=== PATIENT | male | born 1940 | race Caucasian/White ===

== ENCOUNTER → 2018-12-18 | Outpatient (CLI) | payer MEDICARE ==
--- NOTE | 2018-12-18 15:04 | Diagnostic Imaging Report ---
Exam: KUB - 3 views Clinical History: Renal calculus. Comparison: None. Findings: Nonobstructive bowel gas pattern. There is a 6 mm calcification projecting over the right lower kidney and a 3 mm calcification projecting over the right mid kidney. No calcifications projecting over the left kidney or the expected course of the ureters. Calcified phleboliths in the pelvis. No acute bony abnormality. Degenerative changes of the lower lumbar spine. Dextroconvex curvature of the lumbar spine. Status post cholecystectomy. Impression: Calcifications measuring 3 mm and 6 mm overlying the right kidney may represent stones. Signed by: Dr. Cral Guerrero MD on 12/18/2018 3:01 PM
== END ==
LOC: RAD 14:13
PROVIDERS: ATTEND Urology
DX: N20.0 Calculus of kidney (principal)
CPT/HCPCS: 74018

== ENCOUNTER → 2019-02-06 | Day surgery (SDC) | payer MEDICARE ==
[2019-02-03 15:11] LABS: BASOPHILS # (AUTO) 0.1 (0.0-0.1); BASOPHILS % 0.6 % (0.0-1.0); EOSINOPHILS # (AUTO) 0.3 (0.0-0.4); EOSINOPHILS % 3.9 % (0.0-6.0); HEMATOCRIT 42.9 % (38.2-49.6); HEMOGLOBIN 14.2 g/dL (14.0-18.0); LYMPHOCYTES # (AUTO) 2.4 (1.0-3.2); MEAN CORPUSCULAR HEMOGLOBIN 30.4 pg (28-32); MEAN CORPUSCULAR HGB CONC 33.1 g/dL (31-35); MEAN CORPUSCULAR VOLUME 91.9 fL (81-99); MONOCYTES # (AUTO) 0.7 (0.2-0.8); NEUTROPHILS # (AUTO) 4.8 (2.1-6.9); NEUTROPHILS % 58.1 % (38.7-80.0); PLATELET COUNT 215 x10e3/uL (140-360); RED BLOOD COUNT 4.67 x10e6/uL (4.3-5.7); RED CELL DISTRIBUTION WIDTH 13.2 % (11.7-14.4)
[2019-02-03 15:29] LABS: ANION GAP 12.9 mmol/L (8-16); BLOOD UREA NITROGEN 26 mg/dL (7-26); BUN/CREATININE RATIO 28 (6-25); CALCIUM 10.3 mg/dL (8.4-10.2); CARBON DIOXIDE 28 mmol/L (22-29); CHLORIDE 99 mmol/L (98-107); CREATININE, SERUM 0.92 mg/dL (0.72-1.25); EST GLOMERULAR FILTRATION RATE > 60 ML/MIN (60-); GLUCOSE 220 mg/dL (74-118); POTASSIUM 3.9 mmol/L (3.5-5.1); SODIUM 136 mmol/L (136-145)
--- NOTE | 2019-02-03 15:32 | Diagnostic Imaging Report ---
EXAMINATION: CHEST 2 VIEWS INDICATION: Pre-op. COMPARISON: None FINDINGS: TUBES and LINES: None. LUNGS: Lungs are well inflated. There is no evidence of pneumonia or pulmonary edema. Small nodular opacity overlying the right lower lung likely represents nipple shadow. PLEURA: No pleural effusion or pneumothorax. HEART AND MEDIASTINUM: The cardiomediastinal silhouette is mildly enlarged. Tortuous thoracic aorta. BONES AND SOFT TISSUES: No acute osseous abnormality. Status post median sternotomy. UPPER ABDOMEN: No free air under the diaphragm. IMPRESSION: No acute radiographic abnormality. Signed by: Dr. Carl Guerrero MD on 02/03/2019 3:29 PM
--- NOTE | 2019-02-05 13:07 | Diagnostic Imaging Report ---
Abdomen, 2 views. History: Renal stones. Comparison: KUB dated 12/18/2018 Findings: Small stones overlie the lower pole of the right kidney. Stones previously noted overlying the mid portion of the right kidney not definitely visualized on this study. The intestinal gas pattern is nonobstructive. There no masses. Clips from prior cholecystectomy. Extensive degenerative changes of the spine. IMPRESSION: Right lower pole renal stones. Signed by: Dr. Fred Whittaker DO on 02/05/2019 1:04 PM
[~2019-02-06] MED LIST: ACETAMINOPHEN/CODEINE 300MG - 30MG TAB ONE; AMLODIPINE BESY10 MG PO; CRESTOR10 MG PO; DEXAMETHASONE SOD PHOS INJ 4 MG/ML VIAL ONE; FENOFIBRATE145 MG PO; GLIMEPIRIDE2 MG PO; HYDRALAZINE HCL25 MG PO; LEVOFLOXACIN 500MG/D5W 100ML 100 ML IV ONE; LIDOCAINE HCL 2% LOCAL INJ 5 ML SDV VIAL INJ ONE; METFORMIN HCL500 MG PO; MULTI-VITAMIN1 EACH PO; ONDANSETRON HCL INJ 2MG/ML 2ML 2 MG/ML VIAL ONE; PROPOFOL IV EMULSION 10 MG/ML 20 ML VIAL ONE; SEVOFLURANE INHAL SOLN 250 ML PEN BTL ONE; TYLENOL WITH C1 EAC1 PO; [UNRECOGNIZED DRUG - OTHER] PO; [UNRECOGNIZED DRUG - OTHER] PO
--- OUTSIDE RECORDS SUMMARY | 2019-02-06 05:08 | XMS REPORT | Clinical Summary ---
Author Author [employer] [facility] Address Unknown Phone Unavailable Care Team Providers Care Mulcher Operator Name Role Phone Asked, No Pcp PCP Unavailable Allergies Comments Active Allergy Reactions Severity Noted Date Cefaclor Rash Low 08/07/2016 Medications End Date Status Medication Sig Dispensed Refills Start Date Active lansoprazole (PREVACID) Take 15 mg by 0 15 MG capsule mouth daily. Active fenofibrate micronized Take 130 mg 0 (ANTARA) 130 MG capsule by mouth 2 (two) times a day. Active metFORMIN (GLUCOPHAGE) Take 500 mg 0 1,000 mg tablet by mouth 2 (two) times a day with meals. Active aspirin (ECOTRIN) 81 MG Take 81 mg by 0 enteric coated tablet mouth daily. Active multivitamin capsule Take 1 0 capsule by mouth daily. Active colchicine 0.6 mg tablet Take 0.6 mg 0 by mouth daily. PRN Active rosuvastatin (CRESTOR) 10 Take 10 mg by 0 MG tablet mouth every evening. Active glimepiride (AMARYL) 2 MG Take 2 mg by 0 tablet mouth 2 (two) times a day. Active lisinopril Take 20 mg by 0 (PRINIVIL,ZESTRIL) 20 mg mouth 2 (two) tablet times a day. Active amLODIPine (NORVASC) 2.5 Take 2.5 mg 0 mg tablet by mouth daily. Active sitaGLIPtin (JANUVIA) 50 Take 50 mg by 0 MG tablet mouth daily. Active OMEGA-3 FATTY ACIDS/FISH Take 300 mg 0 OIL (OMEGA 3 FISH OIL by mouth ORAL) daily. Active meloxicam (MOBIC) 15 mg Take 15 mg by 0 tablet mouth every evening. Active melatonin 5 mg capsule Take by mouth 0 every evening. Active gabapentin (NEURONTIN) Take 300 mg 0 300 mg capsule by mouth nightly. Active HYDROcodone-acetaminophen Take 1 tablet 0 (NORCO) 5-325 mg per by mouth 2 tablet (two) times a day as needed for moderate pain. Active Problems Problem Noted Date Coronary artery disease involving [place] heart without angina pectoris 08/07/2016 Family History Medical History Relation Name Comments Heart disease Father Heart disease Mother Relation Name Status Comments Father Mother Social History Date Tobacco Use Types Packs/Day Years Used Never Smoker Tobacco Cessation: Counseling Given: No Alcohol Use Drinks/Week oz/Week Comments Yes 3-4 beers/week, mixed drinks 2xweek Sex Assigned at Date Recorded Not on file Industry Job Start Date Occupation Not on file Not on file Not on file Travel End Travel History Travel Start No recent travel history available. Last Filed Vital Signs Not on file Plan of Treatment Health Maintenance Due Date Last Done Comments SHINGLES VACCINES (#1) 1991 65+ PNEUMOCOCCAL VACCINE 2006 (1 of 2 - PCV13) INFLUENZA VACCINE 03/26/2019 Implants Device Identifier Shelf Expiration Date Model / Serial / Lot Implanted Type Area Manufactur er 04/18/2018 [id number] / / [id number] Stent Cor Resolute Integrity Coronary N/A: N/A [employer] Ztrlims-Eltng Otw 2.5x14mm - Stents [facility] - [id number] VASCULAR Implanted: 11/21/2016 (Quantity not on file) 04/25/2018 [id number] / / [id number] Stent Cor Resolute Integrity Coronary N/A: N/A [employer] Ztrlims-Eltng Otw 3x15mm - Stents [facility] - [id number] VASCULAR Implanted: 11/21/2016 (Quantity not on file) 05/17/2018 [id number] / / [id number] Stent Cor Resolute Integrity Coronary N/A: N/A [employer] Ztrlims-Eltng Otw 3x12mm - Stents [facility] - [id number] VASCULAR Implanted: 11/21/2016 (Quantity not on file) 04/02/2021 [id number] / / [id number] Kit Shunt Crtd Artery Rdopq Line Surgical Right: Neck COVIDIEN 6in Strl [place] - [id number] Implants; JOURDAN Implanted: Qty: 1 on 08/08/2016 by [employer]; [facility] Raffaele Holman MD Extenders; Surgical Wires 01/01/2021 [id number] / / [id number] Patch Vasclr Perph 0.8x8cm Vascular Right: Neck CANTRELL Vascu-Guard - [id number] Graft [employer]OS[employer] Implanted: Qty: 1 on 08/08/2016 by Raffaele Holman MD Results Not on fileafter 02/05/2018 Insurance Type Payer Benefit Subscriber ID Effective Phone Address Plan / Dates Group Medicare MEDICARE MEDICARE xxxxxxxxxx 2006-P [place], PART A AND resent [place] B Commercial AARP AARP xxxxxxxxxxx 2010-P SUPPLEMENT resent Advance Directives Patient has advance care planning documents on file. For more information, kian mckenzie contact: Leno Dominguez [address] [place] [address]
--- OUTSIDE RECORDS SUMMARY | 2019-02-06 05:10 | XMS REPORT | Summary of Care ---
Author Author [facility] Organization [facility] Address Unknown Phone Unavailable Encounter DB Kirkpatrick(SILVINO) [id number] Date(s): 12/23/17 - 12/24/17 [facility] [address] [place] [phone] Discharge Disposition: Home or Self Care Attending Physician: Joe Montes MD Admitting Physician: Joe Montes MD Referring Physician: Joe Montes MD Vital Signs 1 2 3 Most recent to oldest [Reference Range]: 172.72 cm (12/23/17 6:42 AM) Height 98.6 DegF (12/24/17 7:22 AM) 98.3 DegF (12/24/17 3:50 AM) 97.7 DegF (12/23/17 10:36 PM) Temperature Oral [96.4-99.1 DegF] 142/84 mmHg *HI* (12/24/17 7:22 AM) 118/62 mmHg (12/24/17 3:50 AM) 138/68 mmHg (12/23/17 10:36 PM) Blood Pressure [90-140/60-90 mmHg] 18 BRMIN (12/24/17 7:22 AM) 16 BRMIN (12/24/17 3:50 AM) 18 BRMIN (12/23/17 10:36 PM) Respiratory Rate [14-20 BRMIN] 62 bpm (12/24/17 7:22 AM) 45 bpm *LOW* (12/24/17 3:50 AM) 54 bpm *LOW* (12/23/17 10:36 PM) Peripheral Pulse Rate [60-100 bpm] 92.273 kg (12/23/17 6:42 AM) Weight 30.93 m2 (12/23/17 6:42 AM) Body Mass Index Problem List Condition Effective Dates Status Health Status Informant BPH (benign Active prostatic hyperplasia)(Confirm ed) Constipation(Confirm Active ed) CAD (coronary artery Active disease)(Confirmed) DM (diabetes Active mellitus)(Confirmed) GERD Active (gastroesophageal reflux disease)(Confirmed) High Active cholesterol(Confirme d) HTN Active (hypertension)(Confi rmed) OA Active (osteoarthritis)(Con firmed) DM (diabetes Active mellitus), type 2(Confirmed) Allergies, Adverse Reactions, Alerts Substance Reaction Severity Status Ceclor itching Active Allergy Unverified1 itching Active 1[facility] Medications acetaminophen 1,000 mg, 2 tab, Route: PO, Drug form: TAB, Q6Hnow, Dosing Weight 92.273, kg, St art date: 12/23/17 21:00:00 CDT, Duration: 30 day, Stop date: 01/22/18 15:00:00 CDT Notes: Max acetaminophen 4000 mg/day (4 gm/day). (Same as: Tylenol Extra Stre) Start Date: 12/23/17 Stop Date: 12/24/17 Status: Discontinued acetaminophen 1,000 mg, 2 tab, Route: PO, Drug form: TAB, TID, Dosing Weight 92.273, kg, Start date: 12/23/17 15:00:00 CDT, Duration: 30 day, Stop date: 01/22/18 9:00:00 CDT Notes: Max acetaminophen 4000 mg/day (4 gm/day). (Same as: Tylenol Extra Streng ) Start Date: 12/23/17 Stop Date: 12/23/17 Status: Discontinued acetaminophen 1,000 mg, 2 tab, Route: PO, Drug form: TAB, ONCE, Dosing Weight 92.273, kg, Star t date: 12/23/17 6:47:00 CDT, Stop date: 12/23/17 6:47:00 CDT Notes: Max acetaminophen 4000 mg/day (4 gm/day). (Same as: Tylenol Extra Streng ) Start Date: 12/23/17 Stop Date: 12/23/17 Status: Completed Advil 600 mg, PO, Q6H, 0 Refill(s) Start Date: 12/11/17 Stop Date: 12/24/17 Status: Discontinued Al hydroxide/Mg hydroxide/simethicone 200 mg-200 mg-20 mg/5 mL oral suspension 15 mL, Route: PO, Drug Form: SUSP, Dosing Weight 92.273, kg, Q4H, PRN Indigestio n, Start date: 12/23/17 16:12:00 CDT, Duration: 30 day, Stop date: 01/22/18 16:1 1:00 CDT Notes: (aluminum hydroxide-magnesium hyd- simethicone [id number]/5ml 30 ml ud REJI) Start Date: 12/23/17 Stop Date: 12/24/17 Status: Discontinued amLODIPine 5 mg, PO, Daily, 0 Refill(s) Start Date: 12/11/17 Status: Ordered ANES flumazenil 0.2 mg, 2 mL, Route: IVP, Drug form: INJ, PRN, Dosing Weight 92.273, kg, PRN [place] zodiazepine Reversal, Initial dose, Start date: 12/23/17 9:05:00 CDT, Duration: 8 hr, Stop date: 12/23/17 17:04:00 CDT Notes: (Same as: Romazicon) Start Date: 12/23/17 Stop Date: 12/23/17 Status: Discontinued ANES HYDROmorphone 0.5 mg, 0.25 mL, Route: IVP, Drug form: INJ, Q5Min, Dosing Weight 92.273, kg, NE N Pain Score 7-10, Start date: 12/23/17 9:05:00 CDT, Duration: 4 doses or times, Stop date: 12/23/17 17:04:00 CDT Notes: Same as Dilaudid Start Date: 12/23/17 Stop Date: 12/23/17 Status: Discontinued ANES labetalol 10 mg, 2 mL, Route: IVP, Drug form: INJ, Q5Min, Dosing Weight 92.273, kg, PRN El evated BP, Start date: 12/23/17 9:05:00 CDT, Duration: 5 doses or times, Stop da te: 12/23/17 17:04:00 CDT Start Date: 12/23/17 Stop Date: 12/23/17 Status: Discontinued ANES morphine Sulfate 2 mg, 0.2 mL, Route: IVP, Drug form: INJ, Q5Min, Dosing Weight 92.273, kg, PRN P ain Score 4-6, Start date: 12/23/17 9:05:00 CDT, Duration: 5 doses or times, Sto p date: 12/23/17 17:04:00 CDT Notes: (Same as:MORPhine Sulfate) Start Date: 12/23/17 Stop Date: 12/23/17 Status: Discontinued ANES naloxone 0.4 mg, 1 mL, Route: IVP, Drug form: INJ, Q2MIN, Dosing Weight 92.273, kg, PRN N arcotic Reversal, Start date: 12/23/17 9:05:00 CDT, Duration: 8 doses or times, Stop date: 12/23/17 17:04:00 CDT Notes: Same as Narcan Start Date: 12/23/17 Stop Date: 12/23/17 Status: Discontinued ANES ondansetron 4 mg, 2 mL, Route: IVP, Drug form: INJ, ONCE, Dosing Weight 92.273, kg, PRN Naus ea & Vomiting, Start date: 12/23/17 9:05:00 CDT Notes: (Same as: Usha) MEDICATION WASTE Product Size: 4 mgProduct Was marlene: ___ mg Start Date: 12/23/17 Stop Date: 12/23/17 Status: Discontinued ANES oxyCODONE 10 mg, 2 tab, Route: PO, Drug form: TAB, Q4H, Dosing Weight 92.273, kg, PRN Pain Score 7-10, Start date: 12/23/17 9:05:00 CDT, Duration: 8 hr, Stop date: 17:04:00 CDT Notes: (Same as: Roxicodone) Start Date: 12/23/17 Stop Date: 12/23/17 Status: Discontinued ANES oxyCODONE 5 mg, 1 tab, Route: PO, Drug form: TAB, Q4H, Dosing Weight 92.273, kg, PRN Pain Score 4-6, Start date: 12/23/17 9:05:00 CDT, Duration: 8 hr, Stop date: 12/23/17 17:04:00 CDT Notes: (Same as: Roxicodone) Start Date: 12/23/17 Stop Date: 12/23/17 Status: Discontinued aspirin 325 mg tablet, enteric coated 325 mg=1 tab, PO, BID, # 60 tab, 0 Refill(s) Start Date: 12/24/17 Stop Date: 01/23/18 Status: Ordered aspirin 325 mg tablet, enteric coated 325 mg, 1 tab, Route: PO, Drug form: ECTAB, BID, Dosing Weight 92.273, kg, Begin 8 am POD #1, Start date: 12/23/17 17:00:00 CDT, Duration: 30 day, Stop date: 9:00:00 CDT Notes: (Do Not Crush) Do not crush or chew. Start Date: 12/23/17 Stop Date: 12/24/17 Status: Discontinued aspirin 81 mg tablet, enteric coated 81 mg=1 tab, PO, Daily, # 90 tab, 3 Refill(s) Start Date: 12/11/17 Stop Date: 12/24/17 Status: Discontinued bisacodyl 10 mg, 1 supp, Route: NE, Drug form: SUPP, Daily, Dosing Weight 92.273, kg, PRN Constipation, Start date: 12/23/17 16:12:00 CDT, Duration: 30 day, Stop date: 16:11:00 CDT Notes: (Same As: Dulcolax, Bisco-Lax) Start Date: 12/23/17 Stop Date: 12/24/17 Status: Discontinued celecoxib 200 mg, Route: PO, [id number], Dosing Weight 92.273, kg, Start date: 12/23/17 17:00 :00 CDT, Duration: 30 day, Stop date: 01/22/18 5:00:00 CDT Start Date: 12/23/17 Stop Date: 12/23/17 Status: Deleted celecoxib 400 mg, Route: PO, ONCE, Dosing Weight 92.273, kg, Start date: 12/23/17 16:12:00 CDT, Stop date: 12/23/17 16:12:00 CDT Start Date: 12/23/17 Stop Date: 12/23/17 Status: Deleted celecoxib 200 mg, 1 cap, Route: PO, Drug form: CAP, [id number], Dosing Weight 92.273, kg, Sta rt date: 12/23/17 21:00:00 CDT, Duration: 30 day, Stop date: 01/22/18 9:00:00 CD T Notes: NSAID. Please check indication. Not for seizure. (Same As: CeleBREX) Start Date: 12/23/17 Stop Date: 12/24/17 Status: Discontinued dexamethasone (ANES) Route: IV, Drug form: INJ, ONCE, Stop date: 12/23/17 10:22:00 CDT Start Date: 12/23/17 Stop Date: 12/23/17 Status: Completed Dextrose 50% Syringe 12.5 gm, 25 mL, Route: IVP, Drug Form: INJ, Dosing Weight 92.273, kg, PRN, PRN B lood Glucose Results, Start date: 12/23/17 10:18:00 CDT, Duration: 30 day, Stop date: 01/22/18 10:17:00 CDT Start Date: 12/23/17 Stop Date: 12/24/17 Status: Discontinued Dextrose 50% Syringe 25 gm, 50 mL, Route: IVP, Drug Form: INJ, Dosing Weight 92.273, kg, PRN, PRN Blo od Glucose Results, Start date: 12/23/17 10:18:00 CDT, Duration: 30 day, Stop da te: 01/22/18 10:17:00 CDT Start Date: 12/23/17 Stop Date: 12/24/17 Status: Discontinued diphenhydrAMINE 12.5 mg, 5 mL, Route: PO, Drug form: LIQ, Q6H, Dosing Weight 92.273, kg, PRN Itc ashwini, Start date: 12/23/17 16:12:00 CDT, Duration: 30 day, Stop date: 01/22/18 1 6:11:00 CDT Notes: (Same as: Benadryl) Start Date: 12/23/17 Stop Date: 12/24/17 Status: Discontinued diphenhydrAMINE 25 mg, 1 cap, Route: PO, Drug form: CAP, Bedtime, Dosing Weight 92.273, kg, PRN Insomnia, Start date: 12/23/17 16:12:00 CDT, Duration: 30 day, Stop date: 16:11:00 CDT Notes: (Same as: Benadryl) Start Date: 12/23/17 Stop Date: 12/24/17 Status: Discontinued docusate 100 mg, 1 cap, Route: PO, Drug form: CAP, BID, Dosing Weight 92.273, kg, Start d ate: 12/23/17 17:00:00 CDT, Duration: 30 day, Stop date: 01/22/18 9:00:00 CDT Notes: (Same as: Colace) (Do Not Crush) Start Date: 12/23/17 Stop Date: 12/24/17 Status: Discontinued docusate-senna 50 mg-8.6 mg oral tablet 1 tab, Route: PO, Drug Form: TAB, Dosing Weight 92.273, kg, Daily, Start date: 0 12/24/17 9:00:00 CDT, Duration: 30 day, Stop date: 01/22/18 9:00:00 CDT Notes: (Same as Senokot-S) Equiv. to Madelyn-Colace. Start Date: 12/24/17 Stop Date: 12/24/17 Status: Discontinued ergocalciferol 50,000 intl units oral capsule 50,000 IntlUnit, 1 cap, Route: PO, Drug form: CAP, Q7D, Dosing Weight 92.273, kg , Start date: 12/23/17 17:00:00 CDT, Duration: 30 day, Stop date: 01/20/18 9:00: 00 CDT Notes: (Same as: Vitamin D) "Do Not Crush" Start Date: 12/23/17 Stop Date: 12/24/17 Status: Discontinued famotidine 20 mg, 1 tab, Route: PO, Drug form: TAB, ONCE, Dosing Weight 92.273, kg, Pre-ope rative., Start date: 12/23/17 6:47:00 CDT, Stop date: 12/23/17 6:47:00 CDT Notes: (Same as: Pepcid) Start Date: 12/23/17 Stop Date: 12/23/17 Status: Completed famotidine 20 mg, 1 tab, Route: PO, Drug form: TAB, QPM, Start date: 12/23/17 17:00:00 CDT, Duration: 30 day, Stop date: 01/21/18 17:00:00 CDT Notes: (Same as: Pepcid) Start Date: 12/23/17 Stop Date: 12/24/17 Status: Discontinued fenofibrate 145 mg, 1 tab, Route: PO, Drug form: TAB, Daily, Start date: 12/24/17 9:00:00 CD T, Duration: 30 day, Stop date: 01/22/18 9:00:00 CDT Notes: (Same as: Tricor) Start Date: 12/24/17 Stop Date: 12/24/17 Status: Discontinued Fenofibrate 130 mg capsule Fenofibrate 130 mg capsule, 130 mg, 1 cap, Drug form: MISC, Route: PO, Daily, 9:00:00 CDT, Duration: 30 day, Stop date: 01/22/18 9:00:00 CDT Start Date: 12/24/17 Stop Date: 12/23/17 Status: Discontinued fenofibrate 130 mg oral capsule 130 mg, 1 cap, Route: PO, Drug form: CAP, Daily, Dosing Weight 92.273, kg, Start date: 12/24/17 9:00:00 CDT, Duration: 30 day, Stop date: 01/22/18 9:00:00 CDT Start Date: 12/24/17 Stop Date: 12/23/17 Status: Deleted fenofibrate 130 mg oral capsule 130 mg=1 cap, PO, Daily, # 30 cap, 0 Refill(s) Start Date: 12/11/17 Status: Ordered gabapentin 300 mg oral capsule 600 mg, 2 cap, Route: PO, Drug form: CAP, QAM, Dosing Weight 92.273, kg, Start d ate: 12/24/17 9:00:00 CDT, Duration: 30 day, Stop date: 01/22/18 9:00:00 CDT Notes: (Same as: Neurontin) Start Date: 12/24/17 Stop Date: 12/23/17 Status: Discontinued gabapentin 300 mg oral capsule 900 mg, 3 cap, Route: PO, Drug form: CAP, QPM, Dosing Weight 92.273, kg, Start d ate: 12/23/17 17:00:00 CDT, Duration: 30 day, Stop date: 01/21/18 17:00:00 CDT Notes: (Same as: Neurontin) Start Date: 12/23/17 Stop Date: 12/23/17 Status: Discontinued gabapentin 300 mg oral capsule 900 mg, 3 cap, Route: PO, Drug form: CAP, QPM, Dosing Weight 92.358, kg, (CrCl > 60 ml/min), Start date: 12/23/17 21:00:00 CDT, Duration: 30 day, Stop date: 21:00:00 CDT Notes: (Same as: Neurontin) Start Date: 12/23/17 Stop Date: 12/23/17 Status: Discontinued gabapentin 300 mg oral capsule 900 mg=3 cap, PO, QPM, # 90 cap, 1 Refill(s) Start Date: 12/11/17 Status: Ordered gabapentin 300 mg oral capsule 600 mg=2 cap, PO, QAM, # 90 cap, 1 Refill(s) Start Date: 12/11/17 Status: Ordered gabapentin 600 mg oral tablet 600 mg, 2 cap, Route: PO, Drug form: CAP, QAM, Dosing Weight 92.358, kg, Start d ate: 12/24/17 9:00:00 CDT, Duration: 30 day, Stop date: 01/22/18 9:00:00 CDT Notes: (Same as: Neurontin) Start Date: 12/24/17 Stop Date: 12/23/17 Status: Discontinued glimepiride 2 mg oral tablet 2 mg=1 tab, PO, Breakfast, # 30 tab, 0 Refill(s) Start Date: 12/11/17 Status: Ordered glucagon 1 mg, Route: IM, Drug form: PDR/INJ, PRN, Dosing Weight 92.273, kg, PRN Blood Gl ucose Results, Start date: 12/23/17 10:18:00 CDT, Duration: 30 day, Stop date: 0 01/22/18 10:17:00 CDT Start Date: 12/23/17 Stop Date: 12/24/17 Status: Discontinued Home Medication PO, Daily, Refill(s) 0 Start Date: 12/11/17 Stop Date: 12/24/17 Status: Discontinued HYDROcodone 10 mg oral capsule, extended release 5 mg=0.5 cap, PO, Q12H, 5mg, 0 Refill(s) Start Date: 12/11/17 Status: Ordered hydromorphone 0.3 mg, 0.15 mL, Route: IVP, Drug form: INJ, Q4H, Dosing Weight 92.273, kg, PRN Pain Score 7-10, Start date: 12/23/17 16:12:00 CDT, Duration: 30 day, Stop date: 01/22/18 16:11:00 CDT Notes: Same as Dilaudid Start Date: 12/23/17 Stop Date: 12/23/17 Status: Discontinued insulin lispro 2 unit, 0.02 mL, Route: SUB-Q, Drug form: SOLN, TID-Before Meals, Dosing Weight 92.273, kg, PRN Blood Glucose Results, Start date: 12/23/17 11:16:00 CDT, Durati on: 30 day, Stop date: 01/22/18 11:15:00 CDT Notes: (Same as: Humalog ) Roll in palms of hands gently; Do not shake `vigorou sly. "Single Patient Use Only " WASTE: F/P - Black; E - [facility] [employer] [address] able for 28 days at room temperature.Expires in days from Da te Start Date: 12/23/17 Stop Date: 12/24/17 Status: Discontinued insulin lispro 8 unit, 0.08 mL, Route: SUB-Q, Drug form: SOLN, TID-Before Meals, Dosing Weight 92.273, kg, PRN Blood Glucose Results, Start date: 12/23/17 11:16:00 CDT, Durati on: 30 day, Stop date: 01/22/18 11:15:00 CDT Notes: (Same as: Humalog ) Roll in palms of hands gently; Do not shake `vigorou sly. "Single Patient Use Only " WASTE: F/P - Black; E - [facility] [address] able for 28 days at room temperature.Expires in days from Da te Start Date: 12/23/17 Stop Date: 12/24/17 Status: Discontinued insulin lispro 6 unit, 0.06 mL, Route: SUB-Q, Drug form: SOLN, TID-Before Meals, Dosing Weight 92.273, kg, PRN Blood Glucose Results, Start date: 12/23/17 11:16:00 CDT, Durati on: 30 day, Stop date: 01/22/18 11:15:00 CDT Notes: (Same as: Humalog ) Roll in palms of hands gently; Do not shake `vigorou sly. "Single Patient Use Only " WASTE: F/P - Black; E - [facility] [address] able for 28 days at room temperature.Expires in days from Da te Start Date: 12/23/17 Stop Date: 12/24/17 Status: Discontinued insulin lispro 4 unit, 0.04 mL, Route: SUB-Q, Drug form: SOLN, TID-Before Meals, Dosing Weight 92.273, kg, PRN Blood Glucose Results, Start date: 12/23/17 11:16:00 CDT, Durati on: 30 day, Stop date: 01/22/18 11:15:00 CDT Notes: (Same as: Humalog ) Roll in palms of hands gently; Do not shake `vigorou sly. "Single Patient Use Only " WASTE: F/P - Black; E - [facility] [address] able for 28 days at room temperature.Expires in days from Da te Start Date: 12/23/17 Stop Date: 12/24/17 Status: Discontinued insulin lispro 10 unit, 0.1 mL, Route: SUB-Q, Drug form: SOLN, TID-Before Meals, Dosing Weight 92.273, kg, PRN Blood Glucose Results, Start date: 12/23/17 11:16:00 CDT, Durati on: 30 day, Stop date: 01/22/18 11:15:00 CDT Notes: (Same as: Humalog ) Roll in palms of hands gently; Do not shake `vigorou sly. "Single Patient Use Only " WASTE: F/P - Black; E - [facility] [address] able for 28 days at room temperature.Expires in days from Da te Start Date: 12/23/17 Stop Date: 12/24/17 Status: Discontinued insulin lispro 2 unit, 0.02 mL, Route: SUB-Q, Drug form: SOLN, Bedtime, Dosing Weight 92.273, k g, PRN Blood Glucose Results, Start date: 12/23/17 10:18:00 CDT, Duration: 30 da y, Stop date: 01/22/18 10:17:00 CDT Notes: (Same as: Humalog ) Roll in palms of hands gently; Do not shake `vigorou sly. "Single Patient Use Only " WASTE: F/P - Black; E - [facility] [address] able for 28 days at room temperature.Expires in days from Da te Start Date: 12/23/17 Stop Date: 12/24/17 Status: Discontinued insulin lispro 1 unit, 0.01 mL, Route: SUB-Q, Drug form: SOLN, Bedtime, Dosing Weight 92.273, k g, PRN Blood Glucose Results, Start date: 12/23/17 10:18:00 CDT, Duration: 30 da y, Stop date: 01/22/18 10:17:00 CDT Notes: (Same as: Humalog ) Roll in palms of hands gently; Do not shake `vigorou sly. "Single Patient Use Only " WASTE: F/P - Black; E - [facility] [address] able for 28 days at room temperature.Expires in days from Da te Start Date: 12/23/17 Stop Date: 12/24/17 Status: Discontinued insulin lispro 4 unit, 0.04 mL, Route: SUB-Q, Drug form: SOLN, Bedtime, Dosing Weight 92.273, k g, PRN Blood Glucose Results, Start date: 12/23/17 10:18:00 CDT, Duration: 30 da y, Stop date: 01/22/18 10:17:00 CDT Notes: (Same as: Humalog ) Roll in palms of hands gently; Do not shake `vigorou sly. "Single Patient Use Only " WASTE: F/P - Black; E - [facility] [address] able for 28 days at room temperature.Expires in days from Da te Start Date: 12/23/17 Stop Date: 12/24/17 Status: Discontinued insulin lispro 3 unit, 0.03 mL, Route: SUB-Q, Drug form: SOLN, Bedtime, Dosing Weight 92.273, k g, PRN Blood Glucose Results, Start date: 12/23/17 10:18:00 CDT, Duration: 30 da y, Stop date: 01/22/18 10:17:00 CDT Notes: (Same as: Humalog ) Roll in palms of hands gently; Do not shake `vigorou sly. "Single Patient Use Only " WASTE: F/P - Black; E - [facility] [address] able for 28 days at room temperature.Expires in days from Da te Start Date: 12/23/17 Stop Date: 12/24/17 Status: Discontinued insulin lispro 4 unit, 0.04 mL, Route: SUB-Q, Drug form: SOLN, TID-Before Meals, Dosing Weight 92.273, kg, PRN Blood Glucose Results, Start date: 12/23/17 10:18:00 CDT, Durati on: 30 day, Stop date: 01/22/18 10:17:00 CDT Notes: (Same as: Humalog ) Roll in palms of hands gently; Do not shake `vigorou sly. "Single Patient Use Only " WASTE: F/P - Black; E - [facility] [address] able for 28 days at room temperature.Expires in days from Da te Start Date: 12/23/17 Stop Date: 12/23/17 Status: Discontinued insulin lispro 5 unit, 0.05 mL, Route: SUB-Q, Drug form: SOLN, TID-Before Meals, Dosing Weight 92.273, kg, PRN Blood Glucose Results, Start date: 12/23/17 10:18:00 CDT, Durati on: 30 day, Stop date: 01/22/18 10:17:00 CDT Notes: (Same as: Humalog ) Roll in palms of hands gently; Do not shake `vigorou sly. "Single Patient Use Only " WASTE: F/P - Black; E - [facility] [address] able for 28 days at room temperature.Expires in days from Da te Start Date: 12/23/17 Stop Date: 12/23/17 Status: Discontinued insulin lispro 2 unit, 0.02 mL, Route: SUB-Q, Drug form: SOLN, TID-Before Meals, Dosing Weight 92.273, kg, PRN Blood Glucose Results, Start date: 12/23/17 10:18:00 CDT, Durati on: 30 day, Stop date: 01/22/18 10:17:00 CDT Notes: (Same as: Humalog ) Roll in palms of hands gently; Do not shake `vigorou sly. "Single Patient Use Only " WASTE: F/P - Black; E - [facility] [address] able for 28 days at room temperature.Expires in days from Da te Start Date: 12/23/17 Stop Date: 12/23/17 Status: Discontinued insulin lispro 3 unit, 0.03 mL, Route: SUB-Q, Drug form: SOLN, TID-Before Meals, Dosing Weight 92.273, kg, PRN Blood Glucose Results, Start date: 12/23/17 10:18:00 CDT, Durati on: 30 day, Stop date: 01/22/18 10:17:00 CDT Notes: (Same as: Humalog ) Roll in palms of hands gently; Do not shake `vigorou sly. "Single Patient Use Only " WASTE: F/P - Black; E - [facility] [address] able for 28 days at room temperature.Expires in days from Da te Start Date: 12/23/17 Stop Date: 12/23/17 Status: Discontinued insulin lispro 1 unit, 0.01 mL, Route: SUB-Q, Drug form: SOLN, TID-Before Meals, Dosing Weight 92.273, kg, PRN Blood Glucose Results, Start date: 12/23/17 10:18:00 CDT, Durati on: 30 day, Stop date: 01/22/18 10:17:00 CDT Notes: (Same as: Humalog ) Roll in palms of hands gently; Do not shake `vigorou sly. "Single Patient Use Only " WASTE: F/P - Black; E - [facility] [address] able for 28 days at room temperature.Expires in days from Da te Start Date: 12/23/17 Stop Date: 12/23/17 Status: Discontinued Lactated Ringers (Bolus) IV 1,000 mL, 1,000 ml/hr, Infuse Over: 1 hr, Route: IV, 1,000, Drug form: INJ, ONCE , Priority: STAT, Dosing Weight 92.358 kg, Start date: 12/23/17 6:47:00 CDT, Sto p date: 12/23/17 6:47:00 CDT Start Date: 12/23/17 Stop Date: 12/23/17 Status: Completed Lactated Ringers Injection IV (ANES) 1000 mL Route: IV, Total Volume: 1,000, Start date: 12/23/17 6:47:00 CDT, Stop date: 7:47:00 CDT Start Date: 12/23/17 Stop Date: 12/23/17 Status: Completed Lactated Ringers IV 1,000 mL 1,000 mL, Rate: 75 ml/hr, Infuse over: 13.3 hr, Route: IV, Dosing Weight 92.273 kg, Total Volume: 1,000, Start date: 12/23/17 11:16:00 CDT, Duration: 30 day, St op date: 01/22/18 11:15:00 CDT, 2.13, m2 Start Date: 12/23/17 Stop Date: 12/24/17 Status: Discontinued Lactated Ringers IV 1,000 mL 1,000 mL, Rate: 100 ml/hr, Infuse over: 10 hr, Route: IV, Dosing Weight 92.273 k g, Total Volume: 1,000, Start date: 12/23/17 6:47:00 CDT, Duration: 30 day, Stop date: 01/22/18 6:46:00 CDT, 2.13, m2 Start Date: 12/23/17 Stop Date: 12/23/17 Status: Discontinued Levaquin 750 mg, 150 mL, Route: IVPB, Drug form: SOLTorie ONCALL, Dosing Weight 92.358, kg, SCIP pre-op dose, Start date: 12/23/17 7:00:00 CDT, Duration: 1 doses or times, Stop date: 12/23/17 12:00:00 CDT, ABX Indication: Surgical Prophylaxis Notes: (Same as:Levaquin) Start Date: 12/23/17 Stop Date: 12/24/17 Status: Discontinued levofloxacin (ANES) 5 mg Route: IV, Drug form: INJ, Start date: 12/23/17 9:25:00 CDT, Stop date: 12/23/17 10:25:00 CDT Start Date: 12/23/17 Stop Date: 12/23/17 Status: Completed lidocaine (ANES) Route: IV, Drug form: INJ, ONCE, Stop date: 12/23/17 10:17:00 CDT Start Date: 12/23/17 Stop Date: 12/23/17 Status: Completed melatonin 3 mg, 1 tab, Route: PO, Drug form: TAB, Bedtime, Dosing Weight 92.273, kg, PRN I nsomnia, Start date: 12/23/17 16:12:00 CDT, Duration: 30 day, Stop date: 8 16:11:00 CDT Notes: (Same as: Melatonin) Start Date: 12/23/17 Stop Date: 12/24/17 Status: Discontinued melatonin 3 mg, 1 tab, Route: PO, Drug form: TAB, Bedtime, Dosing Weight 92.273, kg, PRN I nsomnia, Start date: 12/23/17 11:16:00 CDT, Duration: 30 day, Stop date: 8 11:15:00 CDT Notes: (Same as: Melatonin) Start Date: 12/23/17 Stop Date: 12/23/17 Status: Discontinued metFORMIN 500 mg, PO, Daily, 0 Refill(s) Start Date: 12/11/17 Status: Ordered Milk of Magnesia 30 ml, Route: PO, Drug Form: SUSP, Dosing Weight 92.273, kg, Q6H, PRN as needed for constipation, Start date: 12/23/17 11:16:00 CDT, Duration: 30 day, Stop date : 01/22/18 11:15:00 CDT Notes: (Same as: Milk of Magnesia, MOM) Start Date: 12/23/17 Stop Date: 12/24/17 Status: Discontinued morphine Sulfate 2 mg, 0.2 mL, Route: IVP, Drug form: INJ, Q4H, Dosing Weight 92.273, kg, PRN Doroteo n Score 7-10, Start date: 12/23/17 16:12:00 CDT, Duration: 30 day, Stop date: 16:11:00 CDT Notes: (Same as:MORPhine Sulfate) Start Date: 12/23/17 Stop Date: 12/24/17 Status: Discontinued naproxen 500 mg, Route: PO, [id number], Dosing Weight 92.273, kg, Start date: 12/23/17 17:00 :00 CDT, Duration: 30 day, Stop date: 01/22/18 5:00:00 CDT Start Date: 12/23/17 Stop Date: 12/23/17 Status: Deleted naproxen 500 mg, 1 tab, Route: PO, Drug form: TAB, [id number], Dosing Weight 92.273, kg, Sta rt date: 12/23/17 21:00:00 CDT, Duration: 30 day, Stop date: 01/22/18 9:00:00 CD T Notes: (Same as: Naprosyn) Take with food. Start Date: 12/23/17 Stop Date: 12/23/17 Status: Discontinued olmesartan 40 mg oral tablet 40 mg=1 tab, PO, Daily, # 30 tab, 0 Refill(s) Start Date: 12/11/17 Status: Ordered ondansetron 4 mg, 2 mL, Route: IVP, Drug form: INJ, Q4H, Dosing Weight 92.273, kg, PRN Nause a, Start date: 12/23/17 11:16:00 CDT, Duration: 30 day, Stop date: 01/22/18 11:1 5:00 CDT Notes: (Same as: Usha) MEDICATION WASTE Product Size: 4 mgProduct Was marlene: ___ mg Start Date: 12/23/17 Stop Date: 12/24/17 Status: Discontinued oxyCODONE 5 mg immediate release 10 mg, 2 tab, Route: PO, Drug form: TAB, Q4H, Dosing Weight 92.273, kg, PRN Pain Score 7-10, Start date: 12/23/17 16:12:00 CDT, Duration: 30 day, Stop date: 16:11:00 CDT Notes: (Same as: Roxicodone) Start Date: 12/23/17 Stop Date: 12/24/17 Status: Discontinued oxyCODONE 5 mg oral tablet 5 mg, 1 tab, Route: PO, Drug form: TAB, ONCE, Dosing Weight 92.273, kg, Start da te: 12/23/17 6:47:00 CDT, Stop date: 12/23/17 6:47:00 CDT Notes: (Same as: Roxicodone) Start Date: 12/23/17 Stop Date: 12/23/17 Status: Completed oxyCODONE 5 mg/5 mL oral solution 2.5 mg, Route: PO, Drug form: LIQ, Q4H, Dosing Weight 92.273, kg, PRN Pain Score 4-6, Start date: 12/23/17 16:12:00 CDT, Duration: 30 day, Stop date: 01/22/18 6:11:00 CDT Start Date: 12/23/17 Stop Date: 12/23/17 Status: Deleted oxyCODONE 5 mg/5 mL oral solution 5 mg, 1 tab, Route: PO, Drug form: TAB, Q4H, Dosing Weight 92.273, kg, PRN Pain Score 4-6, Start date: 12/23/17 16:12:00 CDT, Duration: 30 day, Stop date: 01/22 16:11:00 CDT Notes: (Same as: Roxicodone) Start Date: 12/23/17 Stop Date: 12/24/17 Status: Discontinued oxyCODONE 5 mg/5 mL oral solution 5 mg, Route: PO, Drug form: LIQ, Q4H, Dosing Weight 92.273, kg, PRN Pain Score 7 -10, Start date: 12/23/17 16:12:00 CDT, Duration: 30 day, Stop date: 01/22/18 16 :11:00 CDT Start Date: 12/23/17 Stop Date: 12/23/17 Status: Deleted pantoprazole 40 mg, 1 tab, Route: PO, Drug form: ECTAB, Before Breakfast, Dosing Weight 92.27 3, kg, Start date: 12/24/17 7:30:00 CDT, Duration: 30 day, Stop date: 01/22/18 7 :30:00 CDT Notes: Tablet should not be chewed or crushed.(Same as: Protonix) Start Date: 12/24/17 Stop Date: 12/24/17 Status: Discontinued pneumococcal 13-valent vaccine 0.5 mL, Route: IM, Drug Form: INJ, ONCALL, Start date: 12/23/17 14:00:00 CDT Notes: Shake well prior to use (Same as: Prevnar 13) Start Date: 12/23/17 Stop Date: 12/24/17 Status: Discontinued polyethylene glycol 3350 17 gm, 1 pkt, Route: PO, Drug form: PWDR, Daily, Dosing Weight 92.273, kg, Hold for loose stools., Start date: 12/24/17 9:00:00 CDT, Duration: 30 day, Stop date : 01/22/18 9:00:00 CDT Notes: Dissolve in 8 oz of water or juice.(Same as: Miralax) Start Date: 12/24/17 Stop Date: 12/24/17 Status: Discontinued polymyxin B sulfate + Sodium Chloride 0.9% IV 250 mL 125,000 unit, Route: IRRIG, ONCALL, Start date: 12/23/17 6:00:00 CDT, Duration: 1 doses or times, Stop date: 12/23/17 13:00:00 CDT, ABX Indication: Surgical Pro phylaxis Notes: (Same as: Polymyxin B Sulfate) Start Date: 12/23/17 Stop Date: 12/23/17 Status: Discontinued pregabalin 100 mg, 1 cap, Route: PO, Drug form: CAP, Q8Hnow, Dosing Weight 92.273, kg, Star t date: 12/23/17 17:00:00 CDT, Duration: 30 day, Stop date: 01/22/18 9:00:00 CDT Notes: (Same as: Lyrica) Start Date: 12/23/17 Stop Date: 12/24/17 Status: Discontinued promethazine 12.5 mg, 1 tab, Route: PO, Drug form: TAB, ONCE, Dosing Weight 92.273, kg, Start date: 12/23/17 6:47:00 CDT, Stop date: 12/23/17 6:47:00 CDT Notes: (Same as: Phenergan) Start Date: 12/23/17 Stop Date: 12/23/17 Status: Completed propofol (ANES) Route: IV, Drug form: INJ, ONCE, Stop date: 12/23/17 10:17:00 CDT Start Date: 12/23/17 Stop Date: 12/23/17 Status: Completed propofol (ANES) 10 mg Route: IV, Drug form: INJ, Start date: 12/23/17 9:33:00 CDT, Stop date: 12/23/17 10:33:00 CDT Start Date: 12/23/17 Stop Date: 12/23/17 Status: Completed ropivacaine 0.5% 246.25 mg + EPINEPHrine 0.5 mg + ketOROLAC 30 mg/mL injectable solution 30 mg + cl 100 ml/hr, Route: InFILtration(local), ONCALL, Start date: 12/23/17 6:00:00 CDT, Stop date: 12/23/17 13:00:00 CDT Start Date: 12/23/17 Stop Date: 12/23/17 Status: Discontinued rosuvastatin 10 mg, 1 tab, Route: PO, Drug form: TAB, Bedtime, Dosing Weight 92.273, kg, Star t date: 12/23/17 21:00:00 CDT, Duration: 30 day, Stop date: 01/21/18 21:00:00 CD T Notes: (Same As: Crestor) Start Date: 12/23/17 Stop Date: 12/24/17 Status: Discontinued rosuvastatin 10 mg oral tablet 10 mg=1 tab, PO, Bedtime, # 30 tab, 0 Refill(s) Start Date: 12/11/17 Status: Ordered scopolamine 1.5 mg transdermal film 1 patch, Route: TOP, Drug Form: ERFILM, Dosing Weight 92.273, kg, Q72H, Apply be hind ear. Avoid use in elderly., Start date: 12/23/17 17:00:00 CDT, Duration: 3 0 day, Stop date: 01/19/18 17:00:00 CDT Notes: Change patch every 72 hours (Same as: Transderm-Scop) Start Date: 12/23/17 Stop Date: 12/24/17 Status: Discontinued tamsulosin 0.4 mg, 1 cap, Route: PO, Drug form: CAP, Bedtime, Dosing Weight 92.273, kg, Sta rt date: 12/23/17 21:00:00 CDT, Duration: 30 day, Stop date: 01/21/18 21:00:00 C DT Notes: (Same As: Flomax) "Do Not Crush" Start Date: 12/23/17 Stop Date: 12/24/17 Status: Discontinued tamsulosin 0.4 mg oral capsule 0.4 mg=1 cap, PO, Bedtime, Start taking on 12/17/17, # 14 cap, 0 Refill(s), [place] elan: [id number] Start Date: 12/13/17 Status: Ordered tizanidine 2 mg, 0.5 tab, Route: PO, Drug form: TAB, Q6H, Dosing Weight 92.273, kg, PRN Mus cong Spasms, Start date: 12/23/17 16:12:00 CDT, Duration: 30 day, Stop date: 12/26 16:11:00 CDT Notes: (Same As: Zanaflex) Start Date: 12/23/17 Stop Date: 12/24/17 Status: Discontinued tizanidine 2 mg, 0.5 tab, Route: PO, Drug form: TAB, Q8H, Dosing Weight 92.273, kg, PRN Spa sm, Start date: 12/23/17 11:16:00 CDT, Duration: 30 day, Stop date: 01/22/18 11: 15:00 CDT Notes: (Same As: Zanaflex) Start Date: 12/23/17 Stop Date: 12/23/17 Status: Discontinued tramadol 50 mg, 1 tab, Route: PO, Drug form: TAB, Q6H, Dosing Weight 92.273, kg, PRN Pain Score 4-6, Start date: 12/23/17 16:12:00 CDT, Duration: 30 day, Stop date: 12/26 16:11:00 CDT Notes: Not to exceed 400mg/day. (Same As: Ultram) Start Date: 12/23/17 Stop Date: 12/23/17 Status: Discontinued tramadol 100 mg, 2 tab, Route: PO, Drug form: TAB, Q8H, Dosing Weight 92.273, kg, PRN Doroteo n Score 7-10, Start date: 12/23/17 16:12:00 CDT, Duration: 30 day, Stop date: 16:11:00 CDT Notes: Not to exceed 400mg/day. (Same As: Ultram) Start Date: 12/23/17 Stop Date: 12/23/17 Status: Discontinued tranexamic acid (ANES) 100 mg Route: IV, Drug form: INJ, Start date: 12/23/17 9:37:00 CDT, Stop date: 12/23/17 10:37:00 CDT Start Date: 12/23/17 Stop Date: 12/23/17 Status: Completed vancomycin 1,500 mg, 250 mL, Route: IVPB, Drug form: INJ, ONCALL, Dosing Weight 92.273, kg, Start date: 12/23/17 7:00:00 CDT, Duration: 1 doses or times, Stop date: 12:00:00 CDT, ABX Indication: Surgical Prophylaxis Notes: TIME CRITICAL MEDICATIONSame as: Vancocin-NS (premixed)Infusion rate< 1000 mg: infuse over 1 [id number] - 1500 mg: infuse over 1.5 [id number] - 2000 mg: infuse over 2 hours> 2001 mg: infuse over 2.5 hours Start Date: 12/23/17 Stop Date: 12/23/17 Status: Completed vancomycin (SCIP) 1,500 mg, 250 mL, Route: IVPB, Drug form: INJ, ONCE, Dosing Weight 92.273, kg, T nette Critical Medication, Start date: 12/23/17 19:30:00 CDT, Stop date: 12/23/17 19:30:00 CDT, Pharmacy to adjust dose for renal function, ABX Indication: Surgic al Prophylaxis Notes: TIME CRITICAL MEDICATIONSame as: Vancocin-NS (premixed)Infusion rate< 1000 mg: infuse over 1 [id number] - 1500 mg: infuse over 1.5 [id number] - 2000 mg: infuse over 2 hours> 2001 mg: infuse over 2.5 hours Start Date: 12/23/17 Stop Date: 12/23/17 Status: Completed vancomycin + Sodium Chloride 0.9% IV 250 mL 500 mg, Route: IRRIG, ONCALL, Start date: 12/23/17 6:00:00 CDT, Duration: 1 dose s or times, Stop date: 12/23/17 13:00:00 CDT, ABX Indication: Surgical Prophylax is Notes: TIME CRITICAL MEDICATION(Same As: Vancocin)For adult patients only: Round to nearest 250 mg per Medical Staff approval Start Date: 12/23/17 Stop Date: 12/23/17 Status: Discontinued Zantac 150 oral tablet 150 mg=1 tab, PO, QPM, # 60 tab, 0 Refill(s) Start Date: 12/11/17 Stop Date: 01/10/18 Status: Ordered Zantac 150 oral tablet 150 mg, 1 tab, Route: PO, Drug form: TAB, QPM, Dosing Weight 92.273, kg, Start d ate: 12/23/17 17:00:00 CDT, Duration: 30 day, Stop date: 01/21/18 17:00:00 CDT Notes: (Same as:Zantac)Non-Formulary Item Take before or with meals Start Date: 12/23/17 Stop Date: 12/23/17 Status: Discontinued ZyrTEC 10 mg, 1 tab, Route: PO, Drug form: TAB, Daily, Dosing Weight 92.273, kg, Start date: 12/24/17 9:00:00 CDT, Duration: 30 day, Stop date: 01/22/18 9:00:00 CDT Notes: (Same As: Zyrtec) Start Date: 12/24/17 Stop Date: 12/24/17 Status: Discontinued ZyrTEC 10 mg oral tablet 10 mg=1 tab, PO, Daily, # 30 tab, 0 Refill(s) Start Date: 12/11/17 Stop Date: 01/10/18 Status: Ordered Results ELECTROLYTES Most recent to 1 2 oldest [Reference Range]: Sodium Lvl [135-145 134 mEq/L 140 mEq/L mEq/L] *LOW* (12/12/17 9:40 AM) (12/24/17 3:54 AM) Potassium Lvl 5.5 mEq/L 4.9 mEq/L [3.5-5.1 mEq/L] *HI* (12/12/17 9:40 AM) (12/24/17 3:54 AM) Chloride Lvl [95-109 100 mEq/L 102 mEq/L mEq/L] (12/24/17 3:54 AM) (12/12/17 9:40 AM) CO2 [24-32 mEq/L] 23 mEq/L 28 mEq/L *LOW* (12/12/17 9:40 AM) (12/24/17 3:54 AM) AGAP [10.0-20.0 16.5 mEq/L 14.9 mEq/L mEq/L] (12/24/17 3:54 AM) (12/12/17 9:40 AM) CHEM PANEL Most recent to 1 2 oldest [Reference Range]: Creatinine Lvl 1.11 mg/dL 1.23 mg/dL [0.50-1.40 mg/dL] (12/24/17 3:54 AM) (12/12/17 9:40 AM) eGFR 64 mL/min/1.73m2 1 57 mL/min/1.73m2 2 *NA* *NA* (12/24/17 3:54 AM) (12/12/17 9:40 AM) BUN [7-22 mg/dL] 33 mg/dL 24 mg/dL *HI* *HI* (12/24/17 3:54 AM) (12/12/17 9:40 AM) B/C Ratio [6-25] 20 (12/12/17 9:40 AM) Glucose Lvl [70-99 161 mg/dL 214 mg/dL mg/dL] *HI* *HI* (12/24/17 3:54 AM) (12/12/17 9:40 AM) Total Protein 7.6 g/dL [6.4-8.4 g/dL] (12/12/17 9:40 AM) Albumin Lvl [3.5-5.0 3.8 g/dL g/dL] (12/12/17 9:40 AM) Globulin [2.7-4.2 3.8 g/dL g/dL] (12/12/17 9:40 AM) A/G Ratio [0.7-1.6] 1.0 (12/12/17 9:40 AM) Calcium Lvl 8.5 mg/dL 9.2 mg/dL [8.5-10.5 mg/dL] (12/24/17 3:54 AM) (12/12/17 9:40 AM) ALT [0-65 unit/L] 15 unit/L (12/12/17 9:40 AM) AST [0-37 unit/L] 23 unit/L (12/12/17 9:40 AM) Alk Phos [39-136 55 unit/L unit/L] (12/12/17 9:40 AM) Bili Total [0.2-1.3 0.3 mg/dL mg/dL] (12/12/17 9:40 AM) Vitamin D, 25-OH, 21.2 ng/mL Total [30.0-100.0 *LOW* ng/mL] (12/12/17 9:40 AM) 1Result Comment: The eGFR is calculated using the CKD-EPI formula. In most young, healthy individuals the eGFR will be >90 mL/min/1.73m2. The eGFR declines with age. An eGFR of 60-89 may be normal in some populations, particularly the elderly, for whom the CKD-EPI formula has not been extensively validated. Use of the eGFR is not recommended in the following populations: Individuals with unstable creatinine concentrations, including patients and those with serious co-morbid conditions. Patients with extremes in muscle mass or diet. The data above are obtained from the National Kidney Disease Education Program ( NKDEP) which additionally recommends that when the eGFR is used in patients with extremes of body mass index for purposes of drug dosing, the eGFR should be mul tiplied by the estimated BMI. 2Result Comment: The eGFR is calculated using the CKD-EPI formula. In most young, healthy individuals the eGFR will be >90 mL/min/1.73m2. The eGFR declines with age. An eGFR of 60-89 may be normal in some populations, particularly the elderly, for whom the CKD-EPI formula has not been extensively validated. Use of the eGFR is not recommended in the following populations: Individuals with unstable creatinine concentrations, including patients and those with serious co-morbid conditions. Patients with extremes in muscle mass or diet. The data above are obtained from the National Kidney Disease Education Program ( NKDEP) which additionally recommends that when the eGFR is used in patients with extremes of body mass index for purposes of drug dosing, the eGFR should be mul tiplied by the estimated BMI. SPECIAL CHEMISTRY Most recent to 1 2 oldest [Reference Range]: Hgb A1C [<=5.6 %] 6.9 % *HI* (12/12/17 9:40 AM) URINE AND STOOL Most recent to 1 2 oldest [Reference Range]: UA Turbidity [Clear] Clear (12/12/17 9:15 AM) UA Color [Yellow] Yellow *NA* (12/12/17 9:15 AM) UA pH [5.0-8.0] 6.0 (12/12/17 9:15 AM) UA Spec Grav 1.025 [<=1.030] (12/12/17 9:15 AM) UA Glucose [Negative Negative mg/dL mg/dL] (12/12/17 9:15 AM) UA Blood [Negative] Negative (12/12/17 9:15 AM) UA Ketones [Negative Negative mg/dL mg/dL] *NA* (12/12/17 9:15 AM) UA Protein [Negative Negative mg/dL mg/dL] (12/12/17 9:15 AM) UA Urobilinogen 0.2 EU/dL [0.1-1.0 EU/dL] (12/12/17 9:15 AM) UA Bili [Negative] Negative *NA* (12/12/17 9:15 AM) UA Leuk Est Negative [Negative] (12/12/17 9:15 AM) UA Nitrite Negative [Negative] (12/12/17 9:15 AM) UA WBC [None Seen 3-5 /HPF /HPF] (12/12/17 9:15 AM) UA RBC [0-2 /HPF] 0-2 /HPF (12/12/17 9:15 AM) UA Bacteria [None Occasional /HPF Seen /HPF] (12/12/17 9:15 AM) UA Sq Epi [Few /LPF] Occasional /LPF (12/12/17 9:15 AM) UA Hyal Cast [0-2] 6-10 (12/12/17 9:15 AM) HEMATOLOGY Most recent to 1 2 oldest [Reference Range]: WBC [3.7-10.4 K/CMM] 11.2 K/CMM 9.0 K/CMM *HI* (12/12/17 9:40 AM) (12/24/17 3:54 AM) RBC [4.70-6.10 3.79 M/CMM 4.33 M/CMM M/CMM] *LOW* *LOW* (12/24/17 3:54 AM) (12/12/17 9:40 AM) Hgb [14.0-18.0 g/dL] 11.2 g/dL 13.0 g/dL *LOW* *LOW* (12/24/17 3:54 AM) (12/12/17 9:40 AM) Hct [42.0-54.0 %] 33.8 % 39.1 % *LOW* *LOW* (12/24/17 3:54 AM) (12/12/17 9:40 AM) MCV [80.0-94.0 fL] 89.3 fL 90.2 fL (12/24/17 3:54 AM) (12/12/17 9:40 AM) MCH [27.0-31.0 pg] 29.5 pg 30.0 pg (12/24/17 3:54 AM) (12/12/17 9:40 AM) MCHC [32.0-36.0 33.0 g/dL 33.3 g/dL g/dL] (12/24/17 3:54 AM) (12/12/17 9:40 AM) RDW [11.5-14.5 %] 13.0 % 13.1 % (12/24/17 3:54 AM) (12/12/17 9:40 AM) MPV [7.4-10.4 fL] 10.2 fL 9.2 fL (12/24/17 3:54 AM) (12/12/17 9:40 AM) Platelet [133-450 176 K/CMM 245 K/CMM K/CMM] (12/24/17 3:54 AM) (12/12/17 9:40 AM) Segs [45.0-75.0 %] 83.5 % 67.4 % *HI* (12/12/17 9:40 AM) (12/24/17 3:54 AM) Lymphocytes 7.9 % 16.7 % [20.0-40.0 %] *LOW* *LOW* (12/24/17 3:54 AM) (12/12/17 9:40 AM) Monocytes [2.0-12.0 8.4 % 8.6 % %] (12/24/17 3:54 AM) (12/12/17 9:40 AM) Eosinophils [0.0-4.0 6.8 % %] *HI* (12/12/17 9:40 AM) Basophils [0.0-1.0 0.2 % 0.5 % %] (12/24/17 3:54 AM) (12/12/17 9:40 AM) Segs-Bands # 9.4 K/CMM 6.1 K/CMM [1.5-8.1 K/CMM] *HI* (12/12/17 9:40 AM) (12/24/17 3:54 AM) Lymphocytes # 0.9 K/CMM 1.5 K/CMM [1.0-5.5 K/CMM] *LOW* (12/12/17 9:40 AM) (12/24/17 3:54 AM) Monocytes # [0.0-0.8 0.9 K/CMM 0.8 K/CMM K/CMM] *HI* (12/12/17 9:40 AM) (12/24/17 3:54 AM) Eosinophils # 0.6 K/CMM [0.0-0.5 K/CMM] *HI* (12/12/17 9:40 AM) PT [12.0-14.7 13.8 seconds seconds] (12/12/17 9:40 AM) INR [0.85-1.17] 1.06 (12/12/17 9:40 AM) PTT [22.9-35.8 28.0 seconds seconds] (12/12/17 9:40 AM) Immunizations No data available for this section Procedures Procedure Date Related Diagnosis Body Site Status Stent placement 11/21/16 Completed Carotid endarterectomy 08/08/16 Completed Lithotripsy 02/04/15 Completed Lumbar laminectomy and excision of intradural 03/28/11 Completed spinal lesion Cataract extraction and insertion of 10/05/09 Completed intraocular lens CABG x 3 - Coronary artery bypass grafts x 3 08/22/07 Completed Repair of anal fistula 08/01/07 Completed Cholecystectomy 08/23/01 Completed Social History Social History Type Response Exercise Exercise type: Walking. Alcohol Current, Type Beer, Liquor. Frequency: 1-2 times per month.1 Smoking Status Never smoker; Exposure to Tobacco Smoke None; Cigarette Smoking Last 365 Days No; Reg Smoking Cessation Counseling No entered on: 12/23/17 13-4 Assessment and Plan Extracted from: Title: op note Author: Roslyn Fernando MD Date: 12/23/17 PATIENT NAME: Darron Gauthier DATE OF OPERATION/PROCEDURE: 12/23/17 PREOPERATIVE DIAGNOSIS: R knee osteoarthritis. POSTOPERATIVE DIAGNOSIS: R knee osteoarthritis PROCEDURE PERFORMED: Right total knee arthroplasty. SURGEON: Joe Montes M.D. ASSISTANTS: Robbie Fernando MD Fellow ATTENDING: Joe Montes M.D. ANESTHESIA: Spinal and monitored anesthesia care. ESTIMATED BLOOD LOSS: 30 mL. URINE OUTPUT: Not monitored. IMPLANTS: 1. TJO Klassic knee system size 5 femur 2. size 5 tibial baseplate. 3. tibial UPS insert thickness 10mm. 4. patella, size 7 x 37mm DRAINS: None. FINDINGS: Severe bone on bone arthritis with osteophytes on the femur and tibial with synovitis. SPECIMENS: None. INDICATIONS FOR THE PROCEDURE: The patient has a long history of knee pain that interferes with activities of daily living and has failed conservative treatment for osteoarthritis of the knee. DESCRIPTION OF OPERATION: After adequate anesthesia was induced without difficulty, the Right lower extremity was prepped and draped in the usual sterile fashion. The limb was exsanguinated with an ASHER bandage and a proximal thigh tourniquet was inflated. A standard anterior incision was made with a 10 blade scalpel. Dissection was carried down sharply through the skin and subcutaneous tissues to the level of the extensor mechanism. A medial parapatellar approach to the knee was then carried out. The patella was osteotomized with an oscillating saw. The knee system noted above was utilized and a patellar component was selected and the drill holes made. A medial release was carried out. The knee was then flexed and the anterior cruciate and posterior cruciate ligaments were released. The extramedullary tibial cutting guide was pinned in place and the tibial saw cuts were made. A drill hole was placed in the distal femur and the fluted intramedullary guide maria esther was placed down the canal. The distal femur was resected and the femoral component was selected. The cutting block was pinned in place. Femoral saw cuts were made. Remnants of the medial and lateral menisci were excised. Posterior femoral osteophytes were trimmed. Soft tissue balancing was performed. A tibial trial was put in place with a cruciate sacrificing posterior stabilized tibial polyethylene insert trial. The knee was put through range of motion and had excellent flexion and extension gaps and excellent patellar tracking. The trial components were removed. A capsular and soft tissue block was used for postoperative anesthesia. The cancellous surfaces of the bones were meticulously jet lavaged with antibiotic-containing saline and dried. Methyl methacrylate bone cement containing antibiotics was then injected into cancellous bone and pressurized. The prosthetic components were inserted, excess cement was removed, the knee was placed in extension, and the cement was allowed to harden. The wound was irrigated with antibiotic-containing saline and checked for loose fragments and debris. Interrupted #1 vicryl was used to oppose the joint capsule and medial parapatellar arthrotomy and extensor mechanism. A running Quill suture was then used to overrun the extensor mechanism medial parapatellar arthrotomy. Interrupted 2-0 Vicryl suture was then used to close the subcutaneous tissue. A running 3-0 Monocryl subcutaneous suture and nish were then used to close the skin edges. A sterile compressive dressing was applied, the patient was awakened, and sent to the recovery room in stable condition. There were no complications. The sponge and needle counts were given as correct x 2. respiratory equipment assistant Robbie Parsons assisted with positioning the patient, prepping and draping, and assisted with wound closure. Dr Manuel Montes was present and performed all the riggs portions of the procedure. Extracted from: Title: Clinical Document Author: Taylor Burrows Date: 12/23/17 CHIEF COMPLAINT: Right knee pain. HISTORY OF PRESENT ILLNESS: This is a 77-year-old male, well known to our clinic who presents with right knee pain. He has failed nonoperative management including intra-articular steroid and Synvisc injections with the most recent Synvisc injection performed in May 2017. Since that time he has had persistent pain, instability, popping, locking and clicking of the knee. He requires a walker for ambulation. He reports he is unable to fully extend his knee due to pain. The patient is here to discuss right total knee arthroplasty. PAST MEDICAL HISTORY: Significant for DM, CAD s/p CABG in 2006 and stent placement last year, HLD, BPH, and GERD. CURRENT MEDICATIONS: Please see Care[facility]. ALLERGIES: Ceclor. PAST SURGICAL HISTORY: CABG x 3 in 2006, stent placement last year, carotid endarterectomy in 07/2016, lithotripsy in 01/2015, lumbar laminectomy and excision of intradural spinal lesions in 03/2011, cataract extraction and insertion of intraocular lense in 09/2009, repair of anal fistula in 07/2007, and cholecystectomy in 07/2001. SOCIAL HISTORY: Endorses alcohol consumption 1-2 times/month and exercise in the form of walking. Denies tobacco use. FAMILY HISTORY: Significant for aortic aneurysm, CHF, cancer, HTN, and stroke. REVIEW OF SYSTEMS: Endorses MSK pain. The remainder of the 12-point ROS was marked negative by the patient. PHYSICAL EXAMINATION: The patient's vitals, he is 5 feet 8 inches, weighs 204 pounds. His BMI is 31. He is awake, alert and oriented x3, in no acute distress. Nonlabored respirations on room air. He has regular rate and rhythm, has dorsalis pedis and posterior tibial pulse. The right knee was examined. He has mild knee effusion with range of motion 5 to 110 degrees. He has tenderness to palpation along the medial and lateral joint line with patellofemoral crepitus and pain. He has a stable varus, valgus and anterior and posterior drawer test, otherwise has 5/5 motor strength from L2 to S1. Sensation intact to light touch in the same dermatomes. IMAGING: Three-view radiographs of the right knee were obtained in clinic today including the PA, lateral, and sunrise view demonstrates [id number], joint space narrowing, osteophyte formation, subchondral cysts, subchondral sclerosis, and periarticular osteophyte formation. ASSESSMENT: This is a 77-year-old male with right knee osteoarthritis. We did discuss the risks, benefits, and alternatives to operative and nonoperative care. The patient elected for operative intervention. I feel that he will benefit from right total knee arthroplasty. The patient is also going to undergo a lumbar surgery in the future and would like to have his knee done prior to this intervention. The risks, benefits, and alternatives of a right total knee arthroplasty were discussed with the patient. The risks discussed included but were not limited to the possibility of a DVT, PE, infection, bleeding, necessity for subsequent surgeries, difficulty with anesthesia, nerve palsy, and even . No guarantees were made or implied. I believe that informed, verbal consent was obtained from the patient. Formal, written consent will be obtained on the day of surgery. All of the patient's questions were answered and they expressed understanding of the plan moving forward. He was satisfied with today's visit. Fifteen minutes were spent with the patient of which half time was spent discussing diagnosis and treatment per Dr. Montes. The choice of implant to be used during the procedure was discussed with the patient. Extracted from: Title: Consult Note Author: Sal Kramer MD Date: 12/12/17 1.Preop cardiovascular exam Type of surgery:Right total knee arthroplasty, intermediate risk Surgery specificmedical issues:Coronary disease, diabetes, hypertension, hyperlipidemia Physical exam concerns: None Patient is able to perform >4METs Activity with out cardiovascular symptoms(yardwork, taking care livestock) Baseline EKG showssinus bradycardia with right bundle branch block Outpatient university relations director:None Revised cardiac risk index scoreis1 consistent with 0.9% risk ofmajor perioperativecardiac event Patient has extensive cardiac history withhistory of CABG in 2006 and recent stent placement 1 year agofor which will requireclearance from his cardiologistprior to undergoing electiveorthopedic surgery Risks and benefits of surgery discussed with patient 2.Right knee pain Schedule for right total knee arthroplasty with Dr. Montes on 12/23/2017 3.CAD (coronary artery disease) Status post CABG in 2006 and recent stent placement in October 2016. Patienton aspirin,statin, on losartanand amlodipine. Not on beta-tuan due to bradycardia. Patient will need to hold aspirin 1 week before surgeryand hold on losartan on the day of surgery. Discussed with patient that he will require clearance from his university relations director to proceed with surgery 4.DM (diabetes mellitus), type 2 Onglimepirideand metformin. Hemoglobin A1c is 6.9% 5.HTN (hypertension) Controlled on amlodipine and losartan 6.High cholesterol Continue on rosuvastatin 7.BPH (benign prostatic hyperplasia) Patient has history of BPH but does not take any medications for this. Called and discussedincreased riskfor urinary retention perioperatively with anesthesia and pain medicationas controlling factors. 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 Lanza 12/13/2017. Sal He is to stop aspirin [address] Servin does recommend to Jerrell GAN monitorfluid intakeas patient does havemildsystolic CHF with ejection fraction of on 45%from echocardiogramin 2012. EKG showsjunctional bradycardiawith right bundle 12/13/2017 branch blockas well assinus bradycardia with right bundle branch blockwith rates in 15:58 CDT the 30s and 40sfor which patient is asymptomatic. Patient may proceed with surgery without any further preoperative cardio vascular workup.
--- OUTSIDE RECORDS SUMMARY | 2019-02-06 05:10 | XMS REPORT | Summary of Care ---
Author Author [facility] Address Unknown Phone Unavailable Encounter DB Kirkpatrick(FIN) [id number] Date(s): 10/07/18 - 11/05/18 [facility] Encounter Diagnosis Muscle weakness (generalized) (Final) - Difficulty in walking, not elsewhere classified (Final) - Discharge Disposition: Home or Self Care Attending Physician: Joe Montes MD Vital Signs No data available for this section Problem List Condition Effective Dates Status Health [...] Active Allergy Unverified1 itching Active 1[place] Medications No data available for this section Results No data available for this section Immunizations No data available for this section Procedures Procedure Date Related Diagnosis Body Site Status Total knee replacement 09/22/18 Completed Knee replacement 12/23/17 Completed Stent placement 11/21/16 Completed Carotid endarterectomy 08/08/16 Completed Lithotripsy 02/04/15 Completed Lumbar laminectomy and excision of intradural 03/28/11 Completed spinal lesion Cataract extraction and insertion of 10/05/09 Completed intraocular lens 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 Frequency: 1-2 times per month.2 Smoking Status Never smoker; Exposure to Tobacco Smoke None; Cigarette Smoking Last 365 Days No; Reg Smoking Cessation Counseling No entered on: 09/22/18 1denies sob on exertion 23-4 Assessment and Plan No data available for this section
--- OUTSIDE RECORDS SUMMARY | 2019-02-06 05:10 | XMS REPORT | Summary of Care ---
Author Author [facility] Address Unknown Phone Unavailable Encounter DB Hernandez_tor(FIN) [id number] Date(s): 01/09/18 - 02/07/18 [facility] Discharge Disposition: Home or Self Care Attending [...] entered on: 12/23/17 13-4 Assessment and Plan No data available for this section
--- OUTSIDE RECORDS SUMMARY | 2019-02-06 05:10 | XMS REPORT | Continuity of Care Document ---
Author Author Mayda tosha Organization Interface Address Unknown Phone Unavailable Problems Problem Status Onset Date Classification Date Reported Comments Source LEFT TKR Active 10/03/2018 [facility] KNEE OSTEOARTHRITIS Active 07/29/2018 [facility] Presence of right artificial knee joint 03/15/2018 09/28/2018 [facility] RIGHT TKR Active 01/02/2018 [facility] RT TKR Active 12/23/2017 [facility] RIGHT KNEE OA Active 12/05/2017 [facility] BPH (<span ID="[id number]">Confirmed</span>) Active Problem 11/07/2018 [facility] Constipation Active Problem 11/07/2018 [facility] CAD (<span ID="[id number]">Confirmed</span>) Active Problem 11/07/2018 [facility] DM (<span ID="[id number]">Confirmed</span>) Active Problem 11/07/2018 [facility] GERD (<span ID="[id number]">Confirmed</span>) Active Problem 11/07/2018 [facility] High cholesterol Active Problem 11/07/2018 [facility] HTN (<span ID="[id number]">Confirmed</span>) Active Problem 11/07/2018 [facility] OA (<span ID="[id number]">Confirmed</span>) Active Problem 11/07/2018 [facility] DM , type 2(<span ID="[id number]">Confirmed</span>) Active Problem 11/07/2018 [facility] Pain in right knee 09/28/2018 [facility] Other abnormalities of gait and mobility 09/28/2018 [facility] Weakness 09/28/2018 [facility] Muscle weakness 11/07/2018 [facility] Difficulty in walking, not elsewhere classified 11/07/2018 [facility] UNILATERAL PRIMARY OSTEOARTHRITIS, LEFT Active [facility] PAIN IN LEFT KNEE Active [facility] STIFFNESS OF LEFT KNEE, NOT ELSEWHERE CL Active [facility] MUSCLE WEAKNESS (GENERALIZED) Active [facility] DIFFICULTY IN WALKING, NOT ELSEWHERE CLA Active [facility] Medications Medication Details Route Status Patient Instructions Ordering Provider Order Date Source normal saline 0.9% IV 500 mL 500 mL, Rate: 500 ml/hr, Infuse over: 1 hr, Route: IV, Dosing Weight 86.847 kg, Total Volume: 500, Start date: 09/23/18 9:53:00 [employer], Duration: 1 doses or times, Stop date: 09/23/18 10:52:00 [employer], 2.06, m2 Inactive 09/23/2018 [facility] Metformin 500 mg, 1 tab, Route: PO, Drug form: TAB, Daily, Dosing Weight 86.847, kg, Start date: 09/23/18 9:00:00 [employer], Duration: 30 day, Stop date: 10/22/18 9:00:00 CSTNotes: (Same as: Glucophage) Take with meal Inactive 09/23/2018 [facility] gabapentin 300 MG Oral Capsule 1,500 mg, 5 cap, Route: PO, Drug form: CAP, QAM, Dosing Weight 86.847, kg, Start date: 09/23/18 9:00:00 [employer], Duration: 30 day, Stop date: 10/22/18 9:00:00 CSTNotes: (Same as: Neurontin) No Longer Active 09/23/2018 [facility] Fenofibrate 130 MG Oral Capsule 145 mg, 1 tab, Route: PO, Drug form: TAB, Daily, Dosing Weight 86.847, kg, Start date: 09/23/18 9:00:00 [employer], Duration: 30 day, Stop date: 10/22/18 9:00:00 CSTNotes: (Same as: Tricor) Inactive 09/23/2018 [facility] Amlodipine 10 mg, 1 tab, Route: PO, Drug form: TAB, Daily, Dosing Weight 86.847, kg, Start date: 09/23/18 9:00:00 [employer], Duration: 30 day, Stop date: 10/22/18 9:00:00 CSTNotes: (Same as: Norvasc) Inactive 09/23/2018 [facility] Docusate Sodium 50 MG / sennosides, PENITENTIARY 8.6 MG Oral Tablet 1 tab, Route: PO, Drug Form: TAB, Dosing Weight 86.847, kg, Daily, Start date: 09/23/18 9:00:00 [employer], Duration: 30 day, Stop date: 10/22/18 9:00:00 CSTNotes: (Same as Senokot-S) Equiv. to Madelyn-Colace. Inactive 09/23/2018 [facility] POLYETHYLENE GLYCOL 3350 17 gm, 1 pkt, Route: PO, Drug form: PWDR, Daily, Dosing Weight 86.847, kg, Hold for loose stools., Start date: 09/23/18 9:00:00 [employer], Duration: 30 day, Stop date: 10/22/18 9:00:00 CSTNotes: Dissolve in 8 oz of water or juice. (Same as: Miralax) Inactive 09/23/2018 [facility] meloxicam 7.5 mg oral tablet 7.5 mg=1 tab, PO, Daily, # 30 tab, 1 Refill(s) Active 09/23/2018 [facility] Acetaminophen 325 MG / Hydrocodone Bitartrate 5 MG Oral Tablet [[place] 5/325] 1 tab, PO, Q4H, PRN Pain, X 10 day, # 60 tab, 0 Refill(s) Active 09/23/2018 [facility] Aspirin 325 MG Enteric Coated Tablet 325 mg=1 tab, PO, BID, # 84 tab, 0 Refill(s) Active 09/23/2018 [facility] Sulfamethoxazole 800 MG / Trimethoprim 160 MG Oral Tablet [Bactrim] 1 tab, PO, BID, X 10 day, # 20 tab, 0 Refill(s) Active 09/23/2018 [facility] Aspirin 325 MG Enteric Coated Tablet 325 mg, 1 tab, Route: PO, Drug form: ECTAB, BID, Dosing Weight 86.847, kg, Begin 8 am POD #1, Start date: 09/23/18 8:00:00 [employer], Duration: 30 day, Stop date: 10/22/18 17:00:00 CSTNotes: (Do Not Crush) Do not crush or chew. Inactive 09/23/2018 [facility] normal saline 0.9% IV 500 mL 500 mL, Rate: 500 ml/hr, Infuse over: 1 hr, Route: IV, Dosing Weight 86.847 kg, Total Volume: 500, Start date: 09/23/18 7:37:00 [employer], Duration: 1 doses or times, Stop date: 09/23/18 8:36:00 [employer], 2.06, m2 Inactive 09/23/2018 [facility] Kayexalate 30 gm, 120 mL, Route: PO, Drug form: SUSP, ONCE, Dosing Weight 86.847, kg, Start date: 09/23/18 7:36:00 [employer], Stop date: 09/23/18 7:36:00 CSTNotes: (sodium polystyrene sulfonate 15 gm/60 ml REJI) Shake well before use. (Same as: Kayexalate, SPS) Inactive 09/23/2018 [facility] pantoprazole 40 mg, 1 tab, Route: PO, Drug form: ECTAB, Before Breakfast, Dosing Weight 86.847, kg, Start date: 09/23/18 7:30:00 [employer], Duration: 30 day, Stop date: 10/22/18 7:30:00 CSTNotes: Tablet should not be c hewed or crushed. (Same as: Protonix) Inactive 09/23/2018 [facility] Vitamin D2 50,000 IntlUnit, 1 cap, Route: PO, Drug form: CAP, Q7D, Dosing Weight 86.847, kg, Start date: 09/22/18 21:00:00 [employer], Duration: 30 day, Stop date: 10/20/18 21:00:00 CSTNotes: (Same as: Vitamin D) "Do Not Crush" No Longer Active 09/23/2018 [facility] rosuvastatin 10 mg, 1 tab, Route: PO, Drug form: TAB, Bedtime, Dosing Weight 86.847, kg, Start date: 09/22/18 21:00:00 [employer], Duration: 30 day, Stop date: 10/21/18 21:00:00 CSTNotes: (Same As: Crestor) No Longer Active 09/23/2018 [facility] Acetaminophen 1,000 mg, 2 tab, Route: PO, Drug form: TAB, TID, Dosing Weight 86.847, kg, Start date: 09/22/18 21:00:00 [employer], Duration: 30 day, Stop date: 10/22/18 15:00:00 CSTNotes: Max acetaminophen 4000 mg/day (4 gm/day). (Same as: Tylenol Extra Strength) No Longer Active 09/23/2018 [facility] Vancomycin 1,250 mg, 250 mL, Route: IVPB, Drug form: INJ, ONCE, Dosing Weight 86.847, kg, Time Critical Medication, Start date: 09/22/18 21:00:00 [employer], Stop date: 09/22/18 21:00:00 [employer], Pharmacy to adjust dose for renal function, ABX Indication: Surgical ProphylaxisNotes: TIME CRITICAL MEDICATION Same as: Vancocin-NS (premixed) Infusion rate 2001 mg: infuse over 2.5 hours Inactive 09/23/2018 [facility] gabapentin 1,200 mg, 3 cap, Route: PO, Drug form: CAP, BID, Dosing Weight 89.318, kg, Start date: 09/22/18 18:00:00 [employer], Duration: 30 day, Stop date: 10/22/18 17:00:00 CSTNotes: (Same as: Neurontin) No Longer Active 09/23/2018 [facility] Celebrex 200 mg, 1 cap, Route: PO, Drug form: CAP, BID, Dosing Weight 86.847, kg, Start date: 09/22/18 18:00:00 [employer], Duration: 30 day, Stop date: 10/22/18 17:00:00 CSTNotes: NSAID. Please check indication. Not for seizure. (Same As: CeleBREX) No Longer Active 09/23/2018 [facility] Ergocalciferol 96742 UNT Oral Capsule 50,000 IntlUnit, 1 cap, Route: PO, Drug form: CAP, Q7D, Dosing Weight 86.847, kg, Start date: 09/22/18 18:00:00 [employer], Duration: 30 day, Stop date: 10/20/18 9:00:00 CSTNotes: (Same as: Vitamin D) "Do Not Crush" Inactive 09/23/2018 [facility] tamsulosin 0.4 mg, 1 cap, Route: PO, Drug form: CAP, Daily, Dosing Weight 86.847, kg, Start date: 09/22/18 17:00:00 [employer], Duration: 30 day, Stop date: 10/21/18 17:00:00 CSTNotes: (Same As: Flomax) "Do Not Crush" No Longer Active 09/22/2018 [facility] famotidine 20 mg, 1 tab, Route: PO, Drug form: TAB, QPM, Start date: 09/22/18 17:00:00 [employer], Duration: 30 day, Stop date: 10/21/18 17:00:00 CSTNotes: (Same as: Pepcid) No Longer Active 09/22/2018 [facility] Ranitidine 150 MG Oral Tablet [Zantac] 150 mg, 1 tab, Route: PO, Drug form: TAB, QPM, Dosing Weight 86.847, kg, Start date: 09/22/18 17:00:00 [employer], Duration: 30 day, Stop date: 10/21/18 17:00:00 CSTNotes: (Same as:Zantac) Non-Formulary Item Take before or with meals Inactive 09/22/2018 [facility] gabapentin 300 MG Oral Capsule 1,500 mg, 5 cap, Route: PO, Drug form: CAP, QPM, Dosing Weight 86.847, kg, Start date: 09/22/18 17:00:00 [employer], Duration: 30 day, Stop date: 10/21/18 17:00:00 CSTNotes: (Same as: Neurontin) Inactive 09/22/2018 [facility] ondansetron (ANES) Route: IV, Drug form: INJ, ONCE, Stop date: 09/22/18 12:16:00 [employer] Inactive 09/22/2018 [facility] glycopyrrolate (ANES) Route: IV, Drug form: INJ, ONCE, Stop date: 09/22/18 12:16:00 [employer] Inactive 09/22/2018 [facility] tizanidine 2 mg, 0.5 tab, Route: PO, Drug form: TAB, Q8H, Dosing Weight 86.847, kg, PRN Spasm, Start date: 09/22/18 12:16:00 [employer], Duration: 30 day, Stop date: 10/22/18 12:15:00 CSTNotes: (Same As: Zanaflex) No Longer Active 09/22/2018 [facility] Ondansetron 4 mg, 2 mL, Route: IVP, Drug form: INJ, Q4H, Dosing Weight 86.847, kg, PRN Nausea, Start date: 09/22/18 12:16:00 [employer], Duration: 30 day, Stop date: 10/22/18 12:15:00 CSTNotes: (Same as: Zofran) MEDICATION WASTE Product Size: 4 mg Product Wasted: ___ mg No Longer Active 09/22/2018 [facility] Tramadol 50 mg, 1 tab, Route: PO, Drug form: TAB, Q4H, Dosing Weight 86.847, kg, PRN Pain Score 1-3, Start date: 09/22/18 12:16:00 [employer], Duration: 30 day, Stop date: 10/22/18 12:15:00 CSTNotes: Not to exceed 4 00mg/day. (Same As: Ultram) No Longer Active 09/22/2018 [facility] Oxycodone Hydrochloride 5 MG Oral Tablet 10 mg, 2 tab, Route: PO, Drug form: TAB, Q4H, Dosing Weight 86.847, kg, PRN Pain Score 7-10, Start date: 09/22/18 12:16:00 [employer], Duration: 30 day, Stop date: 10/22/18 12:15:00 CSTNotes: (Same as: Roxicodone) No Longer Active 09/22/2018 [facility] Melatonin 3 mg, 1 tab, Route: PO, Drug form: TAB, Bedtime, Dosing Weight 86.847, kg, PRN Insomnia, Start date: 09/22/18 12:16:00 [employer], Duration: 30 day, Stop date: 10/22/18 12:15:00 CSTNotes: (Same as: Melatonin) No Longer Active 09/22/2018 [facility] Milk of Magnesia 30 ml, Route: PO, Drug Form: SUSP, Dosing Weight 86.847, kg, Q6H, PRN as needed for constipation, Start date: 09/22/18 12:16:00 [employer], Duration: 30 day, Stop date: 10/22/18 12:15:00 CSTNotes: (Same as: Milk of Magnesia, MOM) No Longer Active 09/22/2018 [facility] 30 ML Morphine Sulfate 5 MG/ML Injection 1 mg, 0.1 mL, Route: IVP, Drug form: INJ, Q3H, Dosing Weight 86.847, kg, PRN Pain Score 7-10, Start date: 09/22/18 12:16:00 [employer], Duration: 30 day, Stop date: 10/22/18 12:15:00 CSTNotes: (Same as:MORPhine Sulfate) No Longer Active 09/22/2018 [facility] Lactated Ringers IV 1,000 mL 1,000 mL, Rate: 75 ml/hr, Infuse over: 13.3 hr, Route: IV, Dosing Weight 86.847 kg, Total Volume: 1,000, Start date: 09/22/18 12:16:00 [employer], Duration: 30 day, Stop date: 10/22/18 12:15:00 [employer], 2.06, m2 No Longer Active 09/22/2018 [facility] niCARdipine (ANES) Route: IV, Drug form: INJ, ONCE, Stop date: 09/22/18 11:33:00 [employer] Inactive 09/22/2018 [facility] hydrALAZINE (ANES) Route: IV, Drug form: INJ, ONCE, Stop date: 09/22/18 11:28:00 [employer] Inactive 09/22/2018 [facility] dexamethasone (ANES) Route: IV, Drug form: INJ, ONCE, Stop date: 09/22/18 11:13:00 [employer] Inactive 09/22/2018 [facility] tranexamic acid (ANES) Route: IV, Drug form: INJ, ONCE, Stop date: 09/22/18 11:03:00 [employer] Inactive 09/22/2018 [facility] propofol (ANES) Route: IV, Drug form: INJ, ONCE, Stop date: 09/22/18 10:58:00 [employer] Inactive 09/22/2018 [facility] lidocaine (ANES) Route: IV, Drug form: INJ, ONCE, Stop date: 09/22/18 10:58:00 [employer] Inactive 09/22/2018 [facility] levofloxacin (ANES) 5 mg Route: IV, Drug form: INJ, Start date: 09/22/18 10:28:00 [employer], Stop date: 09/22/18 11:28:00 [employer] Inactive 09/22/2018 [facility] propofol (ANES) 10 mg Route: IV, Drug form: INJ, Start date: 09/22/18 10:24:00 [employer], Stop date: 09/22/18 11:24:00 [employer] Inactive 09/22/2018 [facility] Lactated Ringers Injection IV (ANES) 1000 mL Route: IV, Total Volume: 1,000, Start date: 09/22/18 10:14:00 [employer], Stop date: 09/22/18 11:14:00 [employer] Inactive 09/22/2018 [facility] Ondansetron 4 mg, 2 mL, Route: IVP, Drug form: INJ, ONCE, Dosing Weight 86.847, kg, PRN Nausea & Vomiting, Start date: 09/22/18 9:55:00 CSTNotes: (Same as: Zofran) MEDICATION WASTE Product Size: 4 mg Product Wasted: ___ mg Inactive 09/22/2018 [facility] Flumazenil 0.2 mg, 2 mL, Route: IVP, Drug form: INJ, PRN, Dosing Weight 86.847, kg, PRN Benzodiazepine Reversal, Initial dose, Start date: 09/22/18 9:55:00 [employer], Stop date: 09/22/18 18:00:00 CSTNotes: (Same as: Romazicon) Inactive 09/22/2018 [facility] Naloxone 0.4 mg, 1 mL, Route: IVP, Drug form: INJ, Q2MIN, Dosing Weight 86.847, kg, PRN Narcotic Reversal, Start date: 09/22/18 9:55:00 [employer], Duration: 8 doses or times, Stop date: Limited # of timesNotes: Same as Narcan Inactive 09/22/2018 [facility] Hydromorphone 0.5 mg, 0.25 mL, Route: IVP, Drug form: INJ, Q5Min, Dosing Weight 86.847, kg, PRN Pain Score 7-10, Start date: 09/22/18 9:55:00 [employer], Duration: 4 doses or times, Stop date: 09/22/18 18:00:00 CSTNotes: Same as Dilaudid Inactive 09/22/2018 [facility] ropivacaine 0.5% 246.25 mg + EPINEPHrine 0.5 mg + cloNIDine 80 microgram + Sodium Chloride 0.9% IV 100 ml/hr, Route: InFILtration(local), ONCALL, Start date: 09/22/18 9:00:00 [employer], Stop date: 09/22/18 15:00:00 [employer] No Longer Active 09/22/2018 [facility] polymyxin B sulfate + Sodium Chloride 0.9% IV 250 mL 125,000 unit, Route: IRRIG, ONCALL, Start date: 09/22/18 9:00:00 [employer], Duration: 1 doses or times, Stop date: 09/22/18 15:00:00 [employer], ABX Indication: Surgical ProphylaxisNotes: (Same as: Polymyxin B Sulfate) No Longer Active 09/22/2018 [facility] Levaquin 750 mg, 150 mL, Route: IVPB, Drug form: SOLN, ONCALL, Dosing Weight 89.318, kg, SCIP pre-op dose, Start date: 09/22/18 9:00:00 [employer], Duration: 1 doses or times, Stop date: 09/22/18 15:00:00 [employer], ABX [place] cation: Surgical ProphylaxisNotes: (Same as:Levaquin) No Longer Active 09/22/2018 [facility] vancomycin + Sodium Chloride 0.9% IV 250 mL 500 mg, Route: IRRIG, ONCALL, Start date: 09/22/18 9:00:00 [employer], Duration: 1 doses or times, Stop date: 09/22/18 15:00:00 [employer], ABX Indication: Surgical ProphylaxisNotes: TIME CRITICAL MEDICATION (Same As: Vancocin) For adult patients only: Round to nearest 250 mg per Medical Staff approval No Longer Active 09/22/2018 [facility] Vancomycin 1,250 mg, 250 mL, Route: IVPB, Drug form: INJ, ONCALL, Dosing Weight 89.318, kg, Start date: 09/22/18 9:00:00 [employer], Duration: 1 doses or times, Stop date: 09/22/18 15:00:00 [employer], ABX Indication: Surgical ProphylaxisNotes: TIME CRITICAL MEDICATION Same as: Vancocin-NS (premixed) Infusion rate 2001 mg: infuse over 2.5 hours Inactive 09/22/2018 [facility] celecoxib 200 mg, 1 cap, Route: PO, Drug form: CAP, ONCALL, Dosing Weight 89.318, kg, Start date: 09/22/18 9:00:00 [employer], Duration: 6 hr, Stop date: 09/22/18 14:59:00 CSTNotes: NSAID. Please check indication. Not for seizure. (Same As: CeleBREX) Inactive 09/22/2018 [facility] Insulin Lispro 4 unit, 0.04 mL, Route: SUB-Q, Drug form: SOLN, TID-Before Meals, Dosing Weight 86.847, kg, PRN Blood Glucose Results, Start date: 09/22/18 8:49:00 [employer], Duration: 30 day, Stop date: 10/22/18 8:48:00 CSTNotes: (Same as: Humalog ) Roll in palms of hands gently; Do not shake `vigorously. "Single Patient Use Only " WASTE: F/P - Black; E - [place] Trash Bin Stable for 28 days at room temperature. Expires in days from Date No Longer Active 09/22/2018 [facility] Dextrose 50% Syringe 12.5 gm, 25 mL, Route: IVP, Drug Form: INJ, Dosing Weight 86.847, kg, PRN, PRN Blood Glucose Results, Start date: 09/22/18 8:49:00 [employer], Duration: 30 day, Stop date: 10/22/18 8:48:00 [employer] No Longer Active 09/22/2018 [facility] Glucagon 1 mg, Route: IM, Drug form: PDR/INJ, PRN, Dosing Weight 86.847, kg, PRN Blood Glucose Results, Start date: 09/22/18 8:49:00 [employer], Duration: 30 day, Stop date: 10/22/18 8:48:00 [employer] No Longer Active 09/22/2018 [facility] Acetaminophen 1,000 mg, 2 tab, Route: PO, Drug form: TAB, ONCE, Dosing Weight 89.318, kg, Start date: 09/22/18 8:26:00 [employer], Stop date: 09/22/18 8:26:00 CSTNotes: Max acetaminophen 4000 mg/day (4 gm/day). (Same as: Tylenol Extra Strength) Inactive 09/22/2018 [facility] Oxycodone Hydrochloride 5 MG Oral Tablet 5 mg, 1 tab, Route: PO, Drug form: TAB, ONCE, Dosing Weight 89.318, kg, Start date: 09/22/18 8:26:00 [employer], Stop date: 09/22/18 8:26:00 CSTNotes: (Same as: Roxicodone) Inactive 09/22/2018 [facility] Famotidine 20 mg, 1 tab, Route: PO, Drug form: TAB, ONCE, Dosing Weight 89.318, kg, Pre-operative., Start date: 09/22/18 8:26:00 [employer], Stop date: 09/22/18 8:26:00 CSTNotes: (Same as: Pepcid) Inactive 09/22/2018 [facility] Calcium Chloride 0.0014 MEQ/ML / Potassium Chloride 0.004 MEQ/ML / Sodium Chloride 0.103 MEQ/ML / Sodium Lactate 0.028 MEQ/ML Injectable Solution 1,000 mL, 1,000 ml/hr, Infuse Over: 1 hr, Route: IV, 1,000, Drug form: INJ, ONCE, Priority: STAT, Dosing Weight 89.318 kg, Start date: 09/22/18 8:26:00 [employer], Stop date: 09/22/18 8:26:00 [employer] Inactive 09/22/2018 [facility] Promethazine 12.5 mg, 1 tab, Route: PO, Drug form: TAB, ONCE, Dosing Weight 89.318, kg, Start date: 09/22/18 8:26:00 [employer], Stop date: 09/22/18 8:26:00 CSTNotes: (Same as: Phenergan) Inactive 09/22/2018 [facility] Lactated Ringers IV 1,000 mL 1,000 mL, Rate: 100 ml/hr, Infuse over: 10 hr, Route: IV, Dosing Weight 89.318 kg, Total Volume: 1,000, Start date: 09/22/18 8:26:00 [employer], Duration: 30 day, Stop date: 10/22/18 8:25:00 [employer], 2.06, m2 Inactive 09/22/2018 [facility] tamsulosin 0.4 mg oral capsule 0.4 mg=1 cap, PO, Bedtime, Start taking on 09/15/18, # 14 cap, 0 Refill(s), Pharmacy: [id number] Active 09/09/2018 [facility] Home Medication PO, Daily, Refill(s) 0 No Longer Active 09/04/2018 [facility] Ibuprofen 200 MG Oral Tablet [Advil] 600 mg=3 tab, PO, Q4H, PRN Pain, # 120 tab, 0 Refill(s) No Longer Active 09/04/2018 [facility] Aspirin 81 MG Enteric Coated Tablet 81 mg=1 tab, PO, Daily, # 90 tab, 3 Refill(s) No Longer Active 09/04/2018 [facility] Amlodipine 10 mg, PO, Daily, 0 Refill(s) Active 09/04/2018 [facility] gabapentin 300 MG Oral Capsule 600 mg, 2 cap, Route: PO, Drug form: CAP, QAM, Dosing Weight 92.273, kg, Start date: 12/24/17 9:00:00 CDT, Duration: 30 day, Stop date: 01/22/18 9:00:00 CDTNotes: (Same as: Neurontin) No Longer Active 12/24/2017 [facility] Fenofibrate 130 MG Oral Capsule 130 mg, 1 cap, Route: PO, Drug form: CAP, Daily, Dosing Weight 92.273, kg, Start date: 12/24/17 9:00:00 CDT, Duration: 30 day, Stop date: 01/22/18 9:00:00 CDT No Longer Active 12/24/2017 [facility] Zyrtec 10 mg, 1 tab, Route: PO, Drug form: TAB, Daily, Dosing Weight 92.273, kg, Start date: 12/24/17 9:00:00 CDT, Duration: 30 day, Stop date: 01/22/18 9:00:00 CDTNotes: (Same As: Zyrtec) Inactive 12/24/2017 [facility] gabapentin 600 MG Oral Tablet 600 mg, 2 cap, Route: PO, Drug form: CAP, QAM, Dosing Weight 92.358, kg, Start date: 12/24/17 9:00:00 CDT, Duration: 30 day, Stop date: 01/22/18 9:00:00 CDTNotes: (Same as: Neurontin) No Longer Active 12/24/2017 [facility] Docusate Sodium 50 MG / sennosides, PENITENTIARY 8.6 MG Oral Tablet 1 tab, Route: PO, Drug Form: TAB, Dosing Weight 92.273, kg, Daily, Start date: 12/24/17 9:00:00 CDT, Duration: 30 day, Stop date: 01/22/18 9:00:00 CDTNotes: (Same as Senokot-S) Equiv. to Madelyn-Colace. Inactive 12/24/2017 [facility] POLYETHYLENE GLYCOL 3350 17 gm, 1 pkt, Route: PO, Drug form: PWDR, Daily, Dosing Weight 92.273, kg, Hold for loose stools., Start date: 12/24/17 9:00:00 CDT, Duration: 30 day, Stop date: 01/22/18 9:00:00 CDTNotes: Dissolve in 8 oz of water or juice. (Same as: Miralax) Inactive 12/24/2017 [facility] fenofibrate 145 mg, 1 tab, Route: PO, Drug form: TAB, Daily, Start date: 12/24/17 9:00:00 CDT, Duration: 30 day, Stop date: 01/22/18 9:00:00 CDTNotes: (Same as: Tricor) Inactive 12/24/2017 [facility] Fenofibrate 130 mg capsule Fenofibrate 130 mg capsule, 130 mg, 1 cap, Drug form: MISC, Route: PO, Daily, 12/24/17 9:00:00 CDT, Duration: 30 day, Stop date: 01/22/18 9:00:00 CDT No Longer Active 12/24/2017 [facility] pantoprazole 40 mg, 1 tab, Route: PO, Drug form: ECTAB, Before Breakfast, Dosing Weight 92.273, kg, Start date: 12/24/17 7:30:00 CDT, Duration: 30 day, Stop date: 01/22/18 7:30:00 CDTNotes: Tablet should not be c hewed or crushed. (Same as: Protonix) Inactive 12/24/2017 [facility] Aspirin 325 MG Enteric Coated Tablet 325 mg=1 tab, PO, BID, # 60 tab, 0 Refill(s) Active 12/24/2017 [facility] tamsulosin 0.4 mg, 1 cap, Route: PO, Drug form: CAP, Bedtime, Dosing Weight 92.273, kg, Start date: 12/23/17 21:00:00 CDT, Duration: 30 day, Stop date: 01/21/18 21:00:00 CDTNotes: (Same As: Flomax) "Do Not Crush" No Longer Active 12/24/2017 [facility] rosuvastatin 10 mg, 1 tab, Route: PO, Drug form: TAB, Bedtime, Dosing Weight 92.273, kg, Start date: 12/23/17 21:00:00 CDT, Duration: 30 day, Stop date: 01/21/18 21:00:00 CDTNotes: (Same As: Crestor) No Longer Active 12/24/2017 [facility] Acetaminophen 1,000 mg, 2 tab, Route: PO, Drug form: TAB, [id number], Dosing Weight 92.273, kg, Start date: 12/23/17 21:00:00 CDT, Duration: 30 day, Stop date: 01/22/18 15:00:00 CDTNotes: Max acetaminophen 4000 mg/day (4 gm/day). (Same as: Tylenol Extra Strength) No Longer Active 12/24/2017 [facility] Naproxen 500 mg, 1 tab, Route: PO, Drug form: TAB, [id number], Dosing Weight 92.273, kg, Start date: 12/23/17 21:00:00 CDT, Duration: 30 day, Stop date: 01/22/18 9:00:00 CDTNotes: (Same as: Naprosyn) Take with food. Inactive 12/24/2017 [facility] celecoxib 200 mg, 1 cap, Route: PO, Drug form: CAP, [id number], Dosing Weight 92.273, kg, Start date: 12/23/17 21:00:00 CDT, Duration: 30 day, Stop date: 01/22/18 9:00:00 CDTNotes: NSAID. Please check indication. Not for seizure. (Same As: CeleBREX) No Longer Active 12/24/2017 [facility] gabapentin 300 MG Oral Capsule 900 mg, 3 cap, Route: PO, Drug form: CAP, QPM, Dosing Weight 92.358, kg, (CrCl > 60 ml/min), Start date: 12/23/17 21:00:00 CDT, Duration: 30 day, Stop date: 01/21/18 21:00:00 CDTNotes: (Same as: Neurontin) Inactive 12/24/[facility] Vancomycin 1,500 mg, 250 mL, Route: IVPB, Drug form: INJ, ONCE, Dosing Weight 92.273, kg, Time Critical Medication, Start date: 12/23/17 19:30:00 CDT, Stop date: 12/23/17 19:30:00 CDT, Pharmacy to adjust dose for renal function, ABX Indication: Surgical ProphylaxisNotes: TIME CRITICAL MEDICATION Same as: Vancocin-NS (premixed) Infusion rate 2001 mg: infuse over 2.5 hours Inactive 12/24/2017 [facility] gabapentin 300 MG Oral Capsule 900 mg, 3 cap, Route: PO, Drug form: CAP, QPM, Dosing Weight 92.273, kg, Start date: 12/23/17 17:00:00 CDT, Duration: 30 day, Stop date: 01/21/18 17:00:00 CDTNotes: (Same as: Neurontin) Inactive 12/23/2017 [facility] 72 HR Scopolamine 0.0139 MG/HR Transdermal Patch 1 patch, Route: TOP, Drug Form: ERFILM, Dosing Weight 92.273, kg, Q72H, Apply behind ear. Avoid use in elderly., Start date: 12/23/17 17:00:00 CDT, Duration: 30 day, Stop date: 01/19/18 17:00:00 CDTNotes: Change patch every 72 hours (Same as: Transderm-Scop) No Longer Active 12/23/2017 [facility] Docusate 100 mg, 1 cap, Route: PO, Drug form: CAP, BID, Dosing Weight 92.273, kg, Start date: 12/23/17 17:00:00 CDT, Duration: 30 day, Stop date: 01/22/18 9:00:00 CDTNotes: (Same as: Colace) (Do Not Crush) No Longer Active 12/23/2017 [facility] Naproxen 500 mg, Route: PO, [id number], Dosing Weight 92.273, kg, Start date: 12/23/17 17:00:00 CDT, Duration: 30 day, Stop date: 01/22/18 5:00:00 CDT Inactive 12/23/2017 [facility] celecoxib 200 mg, Route: PO, [id number], Dosing Weight 92.273, kg, Start date: 12/23/17 17:00:00 CDT, Duration: 30 day, Stop date: 01/22/18 5:00:00 CDT Inactive 12/23/2017 [facility] pregabalin 100 mg, 1 cap, Route: PO, Drug form: CAP, Q8Hnow, Dosing Weight 92.273, kg, Start date: 12/23/17 17:00:00 CDT, Duration: 30 day, Stop date: 01/22/18 9:00:00 CDTNotes: (Same as: Lyrica) No Longer Active 12/23/2017 [facility] Ranitidine 150 MG Oral Tablet [Zantac] 150 mg, 1 tab, Route: PO, Drug form: TAB, QPM, Dosing Weight 92.273, kg, Start date: 12/23/17 17:00:00 CDT, Duration: 30 day, Stop date: 01/21/18 17:00:00 CDTNotes: (Same as:Zantac) Non-Formulary Item Take before or with meals Inactive 12/23/2017 [facility] Ergocalciferol 97891 UNT Oral Capsule 50,000 IntlUnit, 1 cap, Route: PO, Drug form: CAP, Q7D, Dosing Weight 92.273, kg, Start date: 12/23/17 17:00:00 CDT, Duration: 30 day, Stop date: 01/20/18 9:00:00 CDTNotes: (Same as: Vitamin D) "Do Not Crush" No Longer Active 12/23/2017 [facility] Aspirin 325 MG Enteric Coated Tablet 325 mg, 1 tab, Route: PO, Drug form: ECTAB, BID, Dosing Weight 92.273, kg, Begin 8 am POD #1, Start date: 12/23/17 17:00:00 CDT, Duration: 30 day, Stop date: 01/22/18 9:00:00 CDTNotes: (Do Not Crush) Do not crush or chew. No Longer Active 12/23/2017 [facility] famotidine 20 mg, 1 tab, Route: PO, Drug form: TAB, QPM, Start date: 12/23/17 17:00:00 CDT, Duration: 30 day, Stop date: 01/21/18 17:00:00 CDTNotes: (Same as: Pepcid) No Longer Active 12/23/2017 [facility] Al hydroxide/Mg hydroxide/simethicone 200 mg-200 mg-20 mg/5 mL oral suspension 15 mL, Route: PO, Drug Form: SUSP, Dosing Weight 92.273, kg, Q4H, PRN Indigestion, Start date: 12/23/17 16:12:00 CDT, Duration: 30 day, Stop date: 01/22/18 16:11:00 CDTNotes: (aluminum hydroxide-magnesium hyd- simethicone [id number]/5ml 30 ml ud REJI) No Longer Active 12/23/2017 [facility] Diphenhydramine 12.5 mg, 5 mL, Route: PO, Drug form: LIQ, Q6H, Dosing Weight 92.273, kg, PRN Itching, Start date: 12/23/17 16:12:00 CDT, Duration: 30 day, Stop date: 01/22/18 16:11:00 CDTNotes: (Same as: Benadryl) No Longer Active 12/23/2017 [facility] Melatonin 3 mg, 1 tab, Route: PO, Drug form: TAB, Bedtime, Dosing Weight 92.273, kg, PRN Insomnia, Start date: 12/23/17 16:12:00 CDT, Duration: 30 day, Stop date: 01/22/18 16:11:00 CDTNotes: (Same as: Melatonin) No Longer Active 12/23/2017 [facility] tizanidine 2 mg, 0.5 tab, Route: PO, Drug form: TAB, Q6H, Dosing Weight 92.273, kg, PRN Muscle Spasms, Start date: 12/23/17 16:12:00 CDT, Duration: 30 day, Stop date: 01/22/18 16:11:00 CDTNotes: (Same As: Zanaflex) No Longer Active 12/23/2017 [facility] Bisacodyl 10 mg, 1 supp, Route: WA, Drug form: SUPP, Daily, Dosing Weight 92.273, kg, PRN Constipation, Start date: 12/23/17 16:12:00 CDT, Duration: 30 day, Stop date: 01/22/18 16:11:00 CDTNotes: (Same As: Dulcolax, Bisco-Lax) No Longer Active 12/23/2017 [facility] celecoxib 400 mg, Route: PO, ONCE, Dosing Weight 92.273, kg, Start date: 12/23/17 16:12:00 CDT, Stop date: 12/23/17 16:12:00 CDT Inactive 12/23/2017 [facility] Hydromorphone 0.3 mg, 0.15 mL, Route: IVP, Drug form: INJ, Q4H, Dosing Weight 92.273, kg, PRN Pain Score 7-10, Start date: 12/23/17 16:12:00 CDT, Duration: 30 day, Stop date: 01/22/18 16:11:00 CDTNotes: Same as Dilaudid Inactive 12/23/2017 [facility] Morphine 2 mg, 0.2 mL, Route: IVP, Drug form: INJ, Q4H, Dosing Weight 92.273, kg, PRN Pain Score 7-10, Start date: 12/23/17 16:12:00 CDT, Duration: 30 day, Stop date: 01/22/18 16:11:00 CDTNotes: (Same as:MORPhine Sulfate) No Longer Active 12/23/2017 [facility] Oxycodone Hydrochloride 1 MG/ML Oral Solution 2.5 mg, Route: PO, Drug form: LIQ, Q4H, Dosing Weight 92.273, kg, PRN Pain Score 4-6, Start date: 12/23/17 16:12:00 CDT, Duration: 30 day, Stop date: 01/22/18 16:11:00 CDT Inactive 12/23/2017 [facility] Tramadol 50 mg, 1 tab, Route: PO, Drug form: TAB, Q6H, Dosing Weight 92.273, kg, PRN Pain Score 4-6, Start date: 12/23/17 16:12:00 CDT, Duration: 30 day, Stop date: 01/22/18 16:11:00 CDTNotes: Not to exceed 4 00mg/day. (Same As: Ultram) Inactive 12/23/2017 [facility] Oxycodone Hydrochloride 5 MG Oral Tablet 10 mg, 2 tab, Route: PO, Drug form: TAB, Q4H, Dosing Weight 92.273, kg, PRN Pain Score 7-10, Start date: 12/23/17 16:12:00 CDT, Duration: 30 day, Stop date: 01/22/18 16:11:00 CDTNotes: (Same as: Roxicodone) No Longer Active 12/23/2017 [facility] Acetaminophen 1,000 mg, 2 tab, Route: PO, Drug form: TAB, TID, Dosing Weight 92.273, kg, Start date: 12/23/17 15:00:00 CDT, Duration: 30 day, Stop date: 01/22/18 9:00:00 CDTNotes: Max acetaminophen 4000 mg/day (4 gm/day). (Same as: Tylenol Extra Strength) Inactive 12/23/2017 [facility] Streptococcus pneumoniae serotype 1 capsular antigen diphtheria [id number] protein conjugate vaccine / Streptococcus pneumoniae serotype 14 capsular antigen diphtheria [id number] protein conjugate vaccine / Streptococcus pneumoniae serotype 18C capsular antigen d 0.5 mL, Route: IM, Drug Form: INJ, ONCALL, Start date: 12/23/17 14:00:00 CDTNotes: Shake well prior to use (Same as: Prevnar 13) No Longer Active 12/23/2017 [facility] Insulin Lispro 2 unit, 0.02 mL, Route: SUB-Q, Drug form: SOLN, TID-Before Meals, Dosing Weight 92.273, kg, PRN Blood Glucose Results, Start date: 12/23/17 11:16:00 CDT, Duration: 30 day, Stop date: 01/22/18 11:15:0 0 CDTNotes: (Same as: Humalog ) Roll in palms of hands gently; Do not shake `vigorously. "Single Patient Use Only " WASTE: F/P - Black; E - Municipal Trash Bin Stable for 28 days at room temperature. Expires in days from Date No Longer Active 12/23/2017 [facility] tizanidine 2 mg, 0.5 tab, Route: PO, Drug form: TAB, Q8H, Dosing Weight 92.273, kg, PRN Spasm, Start date: 12/23/17 11:16:00 CDT, Duration: 30 day, Stop date: 01/22/18 11:15:00 CDTNotes: (Same As: Zanaflex) Inactive 12/23/2017 [facility] Ondansetron 4 mg, 2 mL, Route: IVP, Drug form: INJ, Q4H, Dosing Weight 92.273, kg, PRN Nausea, Start date: 12/23/17 11:16:00 CDT, Duration: 30 day, Stop date: 01/22/18 11:15:00 CDTNotes: (Same as: Zofran) MEDICATION WASTE Product Size: 4 mg Product Wasted: ___ mg No Longer Active 12/23/2017 [facility] Melatonin 3 mg, 1 tab, Route: PO, Drug form: TAB, Bedtime, Dosing Weight 92.273, kg, PRN Insomnia, Start date: 12/23/17 11:16:00 CDT, Duration: 30 day, Stop date: 01/22/18 11:15:00 CDTNotes: (Same as: Melatonin) Inactive 12/23/2017 [facility] Milk of Magnesia 30 ml, Route: PO, Drug Form: SUSP, Dosing Weight 92.273, kg, Q6H, PRN as needed for constipation, Start date: 12/23/17 11:16:00 CDT, Duration: 30 day, Stop date: 01/22/18 11:15:00 CDTNotes: (Same as: Milk of Magnesia, MOM) No Longer Active 12/23/2017 [facility] Lactated Ringers IV 1,000 mL 1,000 mL, Rate: 75 ml/hr, Infuse over: 13.3 hr, Route: IV, Dosing Weight 92.273 kg, Total Volume: 1,000, Start date: 12/23/17 11:16:00 CDT, Duration: 30 day, Stop date: 01/22/18 11:15:00 CDT, 2.13, m2 No Longer Active 12/23/2017 [facility] dexamethasone (ANES) Route: IV, Drug form: INJ, ONCE, Stop date: 12/23/17 10:22:00 CDT Inactive 12/23/2017 [facility] Insulin Lispro 2 unit, 0.02 mL, Route: SUB-Q, Drug form: SOLN, Bedtime, Dosing Weight 92.273, kg, PRN Blood Glucose Results, Start date: 12/23/17 10:18:00 CDT, Duration: 30 day, Stop date: 01/22/18 10:17:00 CDTNotes: (Same as: Humalog ) Roll in palms of hands gently; Do not shake `vigorously. "Single Patient Use Only " WASTE: F/P - Black; E - Municipal Trash Bin Stable for 28 days at room temperature. Expires in days from Date No Longer Active 12/23/2017 [facility] Glucagon 1 mg, Route: IM, Drug form: PDR/INJ, PRN, Dosing Weight 92.273, kg, PRN Blood Glucose Results, Start date: 12/23/17 10:18:00 CDT, Duration: 30 day, Stop date: 01/22/18 10:17:00 CDT No Longer Active 12/23/2017 [facility] Dextrose 50% Syringe 12.5 gm, 25 mL, Route: IVP, Drug Form: INJ, Dosing Weight 92.273, kg, PRN, PRN Blood Glucose Results, Start date: 12/23/17 10:18:00 CDT, Duration: 30 day, Stop date: 01/22/18 10:17:00 CDT No Longer Active 12/23/2017 [facility] propofol (ANES) Route: IV, Drug form: INJ, ONCE, Stop date: 12/23/17 10:17:00 CDT Inactive 12/23/2017 [facility] lidocaine (ANES) Route: IV, Drug form: INJ, ONCE, Stop date: 12/23/17 10:17:00 CDT Inactive 12/23/2017 [facility] tranexamic acid (ANES) 100 mg Route: IV, Drug form: INJ, Start date: 12/23/17 9:37:00 CDT, Stop date: 12/23/17 10:37:00 CDT Inactive 12/23/2017 [facility] propofol (ANES) 10 mg Route: IV, Drug form: INJ, Start date: 12/23/17 9:33:00 CDT, Stop date: 12/23/17 10:33:00 CDT Inactive 12/23/2017 [facility] levofloxacin (ANES) 5 mg Route: IV, Drug form: INJ, Start date: 12/23/17 9:25:00 CDT, Stop date: 12/23/17 10:25:00 CDT Inactive 12/23/2017 [facility] Ondansetron 4 mg, 2 mL, Route: IVP, Drug form: INJ, ONCE, Dosing Weight 92.273, kg, PRN Nausea & Vomiting, Start date: 12/23/17 9:05:00 CDTNotes: (Same as: Zofran) MEDICATION WASTE Product Size: 4 mg Product Wasted: ___ mg Inactive 12/23/2017 [facility] Labetalol 10 mg, 2 mL, Route: IVP, Drug form: INJ, Q5Min, Dosing Weight 92.273, kg, PRN Elevated BP, Start date: 12/23/17 9:05:00 CDT, Duration: 5 doses or times, Stop date: 12/23/17 17:04:00 CDT Inactive 12/23/2017 [facility] Flumazenil 0.2 mg, 2 mL, Route: IVP, Drug form: INJ, PRN, Dosing Weight 92.273, kg, PRN Benzodiazepine Reversal, Initial dose, Start date: 12/23/17 9:05:00 CDT, Duration: 8 hr, Stop date: 12/23/17 17:04:00 CDTN otes: (Same as: Romazicon) Inactive 12/23/2017 [facility] Naloxone 0.4 mg, 1 mL, Route: IVP, Drug form: INJ, Q2MIN, Dosing Weight 92.273, kg, PRN Narcotic Reversal, Start date: 12/23/17 9:05:00 CDT, Duration: 8 doses or times, Stop date: 12/23/17 17:04:00 CDTNotes: Same as Narcan Inactive 12/23/2017 [facility] Hydromorphone 0.5 mg, 0.25 mL, Route: IVP, Drug form: INJ, Q5Min, Dosing Weight 92.273, kg, PRN Pain Score 7-10, Start date: 12/23/17 9:05:00 CDT, Duration: 4 doses or times, Stop date: 12/23/17 17:04:00 CDTNotes: Same as Dilaudid Inactive 12/23/2017 [facility] Oxycodone 10 mg, 2 tab, Route: PO, Drug form: TAB, Q4H, Dosing Weight 92.273, kg, PRN Pain Score 7-10, Start date: 12/23/17 9:05:00 CDT, Duration: 8 hr, Stop date: 12/23/17 17:04:00 CDTNotes: (Same as: Roxicod one) Inactive 12/23/2017 [facility] Morphine 2 mg, 0.2 mL, Route: IVP, Drug form: INJ, Q5Min, Dosing Weight 92.273, kg, PRN Pain Score 4-6, Start date: 12/23/17 9:05:00 CDT, Duration: 5 doses or times, Stop date: 12/23/17 17:04:00 CDTNotes: (Same as:MORPhine Sulfate) Inactive 12/23/2017 [facility] Levaquin 750 mg, 150 mL, Route: IVPB, Drug form: SOLN, ONCALL, Dosing Weight 92.358, kg, SCIP pre-op dose, Start date: 12/23/17 7:00:00 CDT, Duration: 1 doses or times, Stop date: 12/23/17 12:00:00 CDT, ABX [place] cation: Surgical ProphylaxisNotes: (Same as:Levaquin) No Longer Active 12/23/2017 [facility] Vancomycin 1,500 mg, 250 mL, Route: IVPB, Drug form: INJ, ONCALL, Dosing Weight 92.273, kg, Start date: 12/23/17 7:00:00 CDT, Duration: 1 doses or times, Stop date: 12/23/17 12:00:00 CDT, ABX Indication: Surgical ProphylaxisNotes: TIME CRITICAL MEDICATION Same as: Vancocin-NS (premixed) Infusion rate 2001 mg: infuse over 2.5 hours Inactive 12/23/2017 [facility] Acetaminophen 1,000 mg, 2 tab, Route: PO, Drug form: TAB, ONCE, Dosing Weight 92.273, kg, Start date: 12/23/17 6:47:00 CDT, Stop date: 12/23/17 6:47:00 CDTNotes: Max acetaminophen 4000 mg/day (4 gm/day). (Same as: Tylenol Extra Strength) Inactive 12/23/2017 [facility] Promethazine 12.5 mg, 1 tab, Route: PO, Drug form: TAB, ONCE, Dosing Weight 92.273, kg, Start date: 12/23/17 6:47:00 CDT, Stop date: 12/23/17 6:47:00 CDTNotes: (Same as: Phenergan) Inactive 12/23/2017 [facility] Calcium Chloride 0.0014 MEQ/ML / Potassium Chloride 0.004 MEQ/ML / Sodium Chloride 0.103 MEQ/ML / Sodium Lactate 0.028 MEQ/ML Injectable Solution 1,000 mL, 1,000 ml/hr, Infuse Over: 1 hr, Route: IV, 1,000, Drug form: INJ, ONCE, Priority: STAT, Dosing Weight 92.358 kg, Start date: 12/23/17 6:47:00 CDT, Stop date: 12/23/17 6:47:00 CDT Inactive 12/23/2017 [facility] Oxycodone Hydrochloride 5 MG Oral Tablet 5 mg, 1 tab, Route: PO, Drug form: TAB, ONCE, Dosing Weight 92.273, kg, Start date: 12/23/17 6:47:00 CDT, Stop date: 12/23/17 6:47:00 CDTNotes: (Same as: Roxicodone) Inactive 12/23/2017 [facility] Famotidine 20 mg, 1 tab, Route: PO, Drug form: TAB, ONCE, Dosing Weight 92.273, kg, Pre-operative., Start date: 12/23/17 6:47:00 CDT, Stop date: 12/23/17 6:47:00 CDTNotes: (Same as: Pepcid) Inactive 12/23/2017 [facility] Lactated Ringers IV 1,000 mL 1,000 mL, Rate: 100 ml/hr, Infuse over: 10 hr, Route: IV, Dosing Weight 92.273 kg, Total Volume: 1,000, Start date: 12/23/17 6:47:00 CDT, Duration: 30 day, Stop date: 01/22/18 6:46:00 CDT, 2.13, m2 Inactive 12/23/2017 [facility] Lactated Ringers Injection IV (ANES) 1000 mL Route: IV, Total Volume: 1,000, Start date: 12/23/17 6:47:00 CDT, Stop date: 12/23/17 7:47:00 CDT Inactive 12/23/2017 [facility] polymyxin B sulfate + Sodium Chloride 0.9% IV 250 mL 125,000 unit, Route: IRRIG, ONCALL, Start date: 12/23/17 6:00:00 CDT, Duration: 1 doses or times, Stop date: 12/23/17 13:00:00 CDT, ABX Indication: Surgical ProphylaxisNotes: (Same as: Polymyxin B Sulfate) Inactive 12/23/2017 [facility] vancomycin + Sodium Chloride 0.9% IV 250 mL 500 mg, Route: IRRIG, ONCALL, Start date: 12/23/17 6:00:00 CDT, Duration: 1 doses or times, Stop date: 12/23/17 13:00:00 CDT, ABX Indication: Surgical ProphylaxisNotes: TIME CRITICAL MEDICATION (Same As: Vancocin) For adult patients only: Round to nearest 250 mg per Medical Staff approval Inactive 12/23/2017 [facility] ropivacaine 0.5% 246.25 mg + EPINEPHrine 0.5 mg + ketOROLAC 30 mg/mL injectable solution 30 mg + cl 100 ml/hr, Route: InFILtration(local), ONCALL, Start date: 12/23/17 6:00:00 CDT, Stop date: 12/23/17 13:00:00 CDT Inactive 12/23/2017 [facility] tamsulosin 0.4 mg oral capsule 0.4 mg=1 cap, PO, Bedtime, Start taking on 12/17/17, # 14 cap, 0 Refill(s), Pharmacy: [id number] Active 12/13/2017 [facility] HYDROcodone 10 mg oral capsule, extended release 5 mg=0.5 cap, PO, Q12H, 5mg, 0 Refill(s) Active 12/11/2017 [facility] olmesartan 40 mg oral tablet 40 mg=1 tab, PO, Daily, # 30 tab, 0 Refill(s) Active 12/11/2017 [facility] cetirizine hydrochloride 10 MG Oral Tablet [Zyrtec] 10 mg=1 tab, PO, Daily, # 30 tab, 0 Refill(s) Active 12/11/2017 [facility] Advil 600 mg, PO, Q6H, 0 Refill(s) No Longer Active 12/11/2017 [facility] Ranitidine 150 MG Oral Tablet [Zantac] 150 mg=1 tab, PO, QPM, # 60 tab, 0 Refill(s) Active 12/11/2017 [facility] Amlodipine 5 mg, PO, Daily, 0 Refill(s) Active 12/11/2017 [facility] gabapentin 300 MG Oral Capsule 900 mg=3 cap, PO, QPM, # 90 cap, 1 Refill(s) Active 12/11/2017 [facility] rosuvastatin 10 mg oral tablet 10 mg=1 tab, PO, Bedtime, # 30 tab, 0 Refill(s) Active 12/11/2017 [facility] gabapentin 300 MG Oral Capsule 600 mg=2 cap, PO, QAM, # 90 cap, 1 Refill(s) Active 12/11/2017 [facility] glimepiride 2 mg oral tablet 2 mg=1 tab, PO, Breakfast, # 30 tab, 0 Refill(s) Active 12/11/2017 [facility] Aspirin 81 MG Enteric Coated Tablet 81 mg=1 tab, PO, Daily, # 90 tab, 3 Refill(s) No Longer Active 12/11/2017 [facility] Home Medication PO, Daily, Refill(s) 0 No Longer Active 12/11/2017 [facility] Fenofibrate 130 MG Oral Capsule 130 mg=1 cap, PO, Daily, # 30 cap, 0 Refill(s) Active 12/11/2017 [facility] Metformin 500 mg, PO, Daily, 0 Refill(s) Active 12/11/2017 [facility] Allergies, Adverse Reactions, Alerts Substance Category Reaction Severity Reaction type Status Date Reported Comments Source Ceclor Assertion itching Drug allergy Active [facility] Allergy Unverified<sup>1</sup> Assertion itching Food allergy Active [facility] Immunizations Immunization Date Given Site Status Last Updated Comments Source Results Order Name Results Value Reference Range Date Interpretation Comments Source ELECTROLYTES AGAP 13.4 meq/L 10.0 - 20.0 09/23/2018 [facility] ELECTROLYTES BUN 30 mg/dL 7 - 22 09/23/2018 [facility] ELECTROLYTES Potassium Lvl 5.4 meq/L 3.5 - 5.1 09/23/2018 [facility] ELECTROLYTES Glucose Lvl 233 mg/dL 70 - 99 09/23/2018 [facility] ELECTROLYTES CO2 24 meq/L 24 - 32 09/23/2018 [facility] ELECTROLYTES Chloride Lvl 97 meq/L 95 - 109 09/23/2018 [facility] ELECTROLYTES Creatinine Lvl 1.10 mg/dL 0.50 - 1.40 09/23/2018 [facility] ELECTROLYTES Sodium Lvl 129 meq/L 135 - 145 09/23/2018 [facility] ELECTROLYTES Calcium Lvl 7.9 mg/dL 8.5 - 10.5 09/23/2018 [facility] ELECTROLYTES eGFR 65 mL/min/1.73m2 09/23/2018 Result Comment: The eGFR is calculated using the [...] from the National Kidney Disease Education Program (NKDEP) which additionally recommends that when the eGFR is used in patients with extremes of body mass index for purposes of drug dosing, the eGFR should be multiplied by the estimated BMI. [facility] HEMATOLOGY Platelet 193 K/CMM 133 - 450 09/23/2018 [facility] HEMATOLOGY Hgb 10.9 g/dL 14.0 - 18.0 09/23/2018 [facility] HEMATOLOGY Hct 32.2 % 42.0 - 54.0 09/23/2018 [facility] HEMATOLOGY MPV 9.1 fL 7.4 - 10.4 09/23/2018 [facility] HEMATOLOGY MCHC 33.9 g/dL 32.0 - 36.0 09/23/2018 [facility] HEMATOLOGY RDW 13.3 % 11.5 - 14.5 09/23/2018 [facility] HEMATOLOGY MCV 90.9 fL 80.0 - 94.0 09/23/2018 [facility] HEMATOLOGY MCH 30.8 pg 27.0 - 31.0 09/23/2018 [facility] HEMATOLOGY RBC 3.54 M/CMM 4.70 - 6.10 09/23/2018 [facility] HEMATOLOGY WBC 11.2 K/CMM 3.7 - 10.4 09/23/2018 [facility] HEMATOLOGY Monocytes # 1.2 K/CMM 0.0 - 0.8 09/23/2018 [facility] HEMATOLOGY Lymphocytes # 0.9 K/CMM 1.0 - 5.5 09/23/2018 [facility] HEMATOLOGY Neutrophils # 9.1 K/CMM 1.5 - 8.1 09/23/2018 [facility] HEMATOLOGY Lymphocytes 8.0 % 20.0 - 40.0 09/23/2018 [facility] HEMATOLOGY Monocytes 10.6 % 2.0 - 12.0 09/23/2018 [facility] HEMATOLOGY Segs 81.4 % 45.0 - 75.0 09/23/2018 [facility] CARDIAC ENZYMES Troponin-I null 0.00 - 0.40 09/23/2018 [facility] CARDIAC ENZYMES Troponin-I null 0.00 - 0.40 09/23/2018 [facility] CARDIAC ENZYMES Troponin-I null 0.00 - 0.40 09/22/2018 [facility] CHEM PANEL eGFR 70 mL/min/1.73m2 09/22/2018 Result Comment: The eGFR is calculated using the [...] from the National Kidney Disease Education Program (NKDEP) which additionally recommends that when the eGFR is used in patients with extremes of body mass index for purposes of drug dosing, the eGFR should be multiplied by the estimated BMI. [facility] CHEM PANEL AGAP 16.8 meq/L 10.0 - 20.0 09/22/2018 [facility] CHEM PANEL BUN 24 mg/dL 7 - 22 09/22/2018 [facility] CHEM PANEL Glucose Lvl 227 mg/dL 70 - 99 09/22/2018 [facility] CHEM PANEL Potassium Lvl 4.8 meq/L 3.5 - 5.1 09/22/2018 [facility] CHEM PANEL Chloride Lvl 100 meq/L 95 - 109 09/22/2018 [facility] CHEM PANEL Sodium Lvl 136 meq/L 135 - 145 09/22/2018 [facility] CHEM PANEL Creatinine Lvl 1.03 mg/dL 0.50 - 1.40 09/22/2018 [facility] CHEM PANEL Calcium Lvl 8.4 mg/dL 8.5 - 10.5 09/22/2018 [facility] CHEM PANEL CO2 24 meq/L 24 - 32 09/22/2018 [facility] Knee 1-2 Views unilateral DX Knee 1-2 Views unilateral DX EXAM: XR KNEE 2 VIEWS DATE: 09/22/2018 12:16 [employer]INGS [employer]ISHER INDICATION: Pain Post Trauma - post-operative in PACU COMPARISON: None TECHNIQUE: AP and lateral radiographs of the knee Laterality: Left FINDINGS: Performance of total knee arthroplasty, which is in satisfactory alignment. No perihardware fracture. Anterior knee soft tissue swelling gas. Medial knee surgical clips. IMPRESSION: Satisfactory appearance of total knee arthroplasty. 09/22/2018 - - Read by: Dakota Murillo MD Dictated Date/time: 09/22/18 17:41 Electronically Signed by: Dakota Murillo MD 09/22/18 17:42 FINAL REPORT [facility] SPECIAL CHEMISTRY Fructosamine 282 umol/L 0 - 285 09/12/2018 Result Comment: Published reference interval for apparently healthy subjects between age 20 and 60 is 205 - 285 umol/L and in a poorly controlled diabetic population is 228 - 563 umol/L with a mean of 396 umol/L. Performed At: [facility] [address] [id number] Lakeshia Robles MD Ph:[phone] [facility] SPECIAL CHEMISTRY Hgb A1C 7.8 % <=5.6 % 09/12/2018 [facility] CHEM PANEL Vitamin D, 25-OH, Total 18.4 ng/mL 30.0 - 100.0 09/09/2018 [facility] CHEM PANEL Albumin Lvl 3.9 g/dL 3.5 - 5.0 09/09/2018 [facility] CHEM PANEL eGFR 85 mL/min/1.73m2 09/09/2018 Result Comment: The eGFR is calculated using the [...] from the National Kid[employer] Education Program (NKDEP) which additionally recommends that when the eGFR is used in patients with extremes of body mass index for purposes of drug dosing, the eGFR should be multiplied by the estimated BMI. [facility] CO2 28 meq/L 24 - 32 09/09/2018 [facility] CHEM PANEL Chloride Lvl 103 meq/L 95 - 109 09/09/2018 [facility] CHEM PANEL Potassium Lvl 4.3 meq/L 3.5 - 5.1 09/09/2018 [facility] CHEM PANEL Calcium Lvl 9.3 mg/dL 8.5 - 10.5 09/09/2018 [facility] CHEM PANEL Glucose Lvl 124 mg/dL 70 - 99 09/09/2018 [facility] CHEM PANEL BUN 21 mg/dL 7 - 22 09/09/2018 [facility] CHEM PANEL Sodium Lvl 141 meq/L 135 - 145 09/09/2018 [facility] CHEM PANEL Creatinine Lvl 0.84 mg/dL 0.50 - 1.40 09/09/2018 [facility] CHEM PANEL AGAP 14.3 meq/L 10.0 - 20.0 09/09/2018 [facility] HEMATOLOGY MPV 10.0 fL 7.4 - 10.4 09/09/2018 [facility] HEMATOLOG[facility] WBC 6.0 K/CMM 3.7 - 10.4 09/09/2018 [facility] HEMATOLOGY Platelet 223 K/CMM 133 - 450 09/09/2018 [facility] HEMAT[facility] MCH 30.5 pg 27.0 - 31.0 09/09/2018 [facility] HEMAT[facility] RDW 13.6 % 11.5 - 14.5 09/09/2018 [facility] HEMATOLOGY MCHC 32.9 g/dL 32.0 - 36.0 09/09/2018 [facility] HEMAT[facility] MCV 92.7 fL 80.0 - 94.0 09/09/2018 [facility] HEMAT[facility]Y RBC 4.22 M/CMM 4.70 - 6.10 09/09/2018 [facility] HEMATOLOGY Hgb 12.9 g/dL 14.0 - 18.0 09/09/2018 [facility] HEMAT[facility] Hct 39.1 % 42.0 - 54.0 09/09/2018 [facility] HEMATOLOGY Lymphocytes # 2.3 K/CMM 1.0 - 5.5 09/09/2018 [facility] HEMATOLOGY Basophils 0.8 % 0.0 - 1.0 09/09/2018 [facility] HEMATOLOGY Eosinophils 5.5 % 0.0 - 4.0 09/09/2018 [facility] HEMATOLOGY Neutrophils # 2.8 K/CMM 1.5 - 8.1 09/09/2018 [facility] HEMATOLOGY Monocytes # 0.5 K/CMM 0.0 - 0.8 09/09/2018 [facility] HEMATOLOGY Eosinophils # 0.3 K/CMM 0.0 - 0.5 09/09/2018 [facility] HEMATOLOGY Monocytes 9.2 % 2.0 - 12.0 09/09/2018 [facility] HEMATOLOGY Lymphocytes 38.5 % 20.0 - 40.0 09/09/2018 [facility] HEMATOLOGY Segs 46.0 % 45.0 - 75.0 09/09/2018 [facility] SPECIAL CHEMISTRY Hgb A1C 7.7 % <=5.6 % 09/09/2018 [facility] ELECTROLYTES AGAP 16.5 meq/L 10.0 - 20.0 12/24/2017 [facility] ELECTROLYTES eGFR 64 mL/min/1.73m2 12/24/2017 Result Comment: The eGFR is calculated using the [...] from the National Kidney Disease Education Program (NKDEP) which additionally recommends that when the eGFR is used in patients with extremes of body mass index for purposes of drug dosing, the eGFR should be multiplied by the estimated BMI. [facility] ELECTROLYTES Glucose Lvl 161 mg/dL 70 - 99 12/24/2017 [facility] ELECTROLYTES BUN 33 mg/dL 7 - 22 12/24/2017 [facility] ELECTROLYTES Creatinine Lvl 1.11 mg/dL 0.50 - 1.40 12/24/2017 [facility] ELECTROLYTES Sodium Lvl 134 meq/L 135 - 145 12/24/2017 [facility] ELECTROLYTES Potassium Lvl 5.5 meq/L 3.5 - 5.1 12/24/2017 [facility] ELECTROLYTES Chloride Lvl 100 meq/L 95 - 109 12/24/2017 [facility] ELECTROLYTES CO2 23 meq/L 24 - 32 12/24/2017 [facility] ELECTROLYTES Calcium Lvl 8.5 mg/dL 8.5 - 10.5 12/24/2017 [facility] HEMATOLOGY Platelet 176 K/CMM 133 - 450 12/24/2017 [facility] HEMATOLOGY RDW 13.0 % 11.5 - 14.5 12/24/2017 [facility] HEMATOLOGY MPV 10.2 fL 7.4 - 10.4 12/24/2017 [facility] HEMATOLOGY MCHC 33.0 g/dL 32.0 - 36.0 12/24/2017 [facility] HEMATOLOGY MCH 29.5 pg 27.0 - 31.0 12/24/2017 [facility] HEMATOLOGY MCV 89.3 fL 80.0 - 94.0 12/24/2017 [facility] HEMATOLOGY Hct 33.8 % 42.0 - 54.0 12/24/2017 [facility] HEMATOLOGY Hgb 11.2 g/dL 14.0 - 18.0 12/24/2017 [facility] HEMATOLOGY RBC 3.79 M/CMM 4.70 - 6.10 12/24/2017 [facility] HEMATOLOGY WBC 11.2 K/CMM 3.7 - 10.4 12/24/2017 [facility] HEMATOLOGY Monocytes # 0.9 K/CMM 0.0 - 0.8 12/24/2017 [facility] HEMATOLOGY Lymphocytes # 0.9 K/CMM 1.0 - 5.5 12/24/2017 [facility] HEMATOLOGY Lymphocytes 7.9 % 20.0 - 40.0 12/24/2017 [facility] HEMATOLOGY Segs 83.5 % 45.0 - 75.0 12/24/2017 [facility] HEMATOLOGY Segs-Bands # 9.4 K/CMM 1.5 - 8.1 12/24/2017 [facility] HEMATOLOGY Basophils 0.2 % 0.0 - 1.0 12/24/2017 [facility] HEMATOLOGY Monocytes 8.4 % 2.0 - 12.0 12/24/2017 [facility] Knee 1-2 Views unilateral DX Knee 1-2 Views unilateral DX EXAM: XR KNEE 2 VIEWS DATE: 12/23/2017 11:16 AM CDT INDICATION: Pain Post Trauma - post-operative in PACU COMPARISON: None TECHNIQUE: AP and lateral radiographs of the knee Laterality: Right FINDINGS: Completion of total knee arthroplasty, which is in satisfactory alignment. No perihardware fracture. Anterior knee soft tissue gas and skin nish. Moderate arterial calcification. IMPRESSION: Satisfactory appearance of total knee arthroplasty. 12/23/2017 - - Read by: Dakota Murillo MD Dictated Date/time: 12/23/17 13:02 Electronically Signed by: Dakota Murillo MD 12/23/17 13:02 FINAL REPORT [facility] CHEM PANEL Vitamin D, 25-OH, Total 21.2 ng/mL 30.0 - 100.0 12/12/2017 [facility] CHEM PANEL eGFR 57 mL/min/1.73m2 12/12/2017 Result Comment: The eGFR is calculated using the [...] from the National Kidney Disease Education Program (NKDEP) which additionally recommends that when the eGFR is used in patients with extremes of body mass index for purposes of drug dosing, the eGFR should be multiplied by the estimated BMI. [facility] CHEM PANEL Bili Total 0.3 mg/dL 0.2 - 1.3 12/12/2017 [facility] CHEM PANEL Alk Phos 55 unit/L 39 - 136 12/12/2017 [facility] CHEM PANEL Calcium Lvl 9.2 mg/dL 8.5 - 10.5 12/12/2017 [facility] CHEM PANEL Total Protein 7.6 g/dL 6.4 - 8.4 12/12/2017 [facility] CHEM PANEL CO2 28 meq/L 24 - 32 12/12/2017 [facility] CHEM PANEL Albumin Lvl 3.8 g/dL 3.5 - 5.0 12/12/2017 [facility] CHEM PANEL ALANINE AMINOTRANSFERASE 15 unit/L 0 - 65 12/12/2017 [facility] CHEM PANEL ASPARTATE TRANSAMINASE 23 unit/L 0 - 37 12/12/2017 [facility] CHEM PANEL Chloride Lvl 102 meq/L 95 - 109 12/12/2017 [facility] CHEM PANEL BUN 24 mg/dL 7 - 22 12/12/2017 [facility] CHEM PANEL Creatinine Lvl 1.23 mg/dL 0.50 - 1.40 12/12/2017 [facility] CHEM PANEL Glucose Lvl 214 mg/dL 70 - 99 12/12/2017 [facility] CHEM PANEL Sodium Lvl 140 meq/L 135 - 145 12/12/2017 [facility] CHEM PANEL Potassium Lvl 4.9 meq/L 3.5 - 5.1 12/12/2017 [facility] CHEM PANEL A/G Ratio 1.0 0.7 - 1.6 12/12/2017 [facility] CHEM PANEL Globulin 3.8 g/dL 2.7 - 4.2 12/12/2017 [facility] CHEM PANEL B/C Ratio 20 6 - 25 12/12/2017 [facility] CHEM PANEL AGAP 14.9 meq/L 10.0 - 20.0 12/12/2017 [facility] HEMATOLOGY RBC 4.33 M/CMM 4.70 - 6.10 12/12/2017 [facility] HEMATOLOGY MPV 9.2 fL 7.4 - 10.4 12/12/2017 [facility] HEMATOLOGY Platelet 245 K/CMM 133 - 450 12/12/2017 [facility] HEMATOLOGY MCHC 33.3 g/dL 32.0 - 36.0 12/12/2017 [facility] HEMATOLOGY RDW 13.1 % 11.5 - 14.5 12/12/2017 [facility] HEMATOLOGY MCH 30.0 pg 27.0 - 31.0 12/12/2017 [facility] HEMATOLOGY MCV 90.2 fL 80.0 - 94.0 12/12/2017 [facility] HEMATOLOGY Hct 39.1 % 42.0 - 54.0 12/12/2017 [facility] HEMATOLOGY Hgb 13.0 g/dL 14.0 - 18.0 12/12/2017 [facility] HEMATOLOGY WBC 9.0 K/CMM 3.7 - 10.4 12/12/2017 [facility] HEMATOLOGY Monocytes 8.6 % 2.0 - 12.0 12/12/2017 [facility] HEMATOLOGY Basophils 0.5 % 0.0 - 1.0 12/12/2017 [facility] HEMATOLOGY Segs-Bands # 6.1 K/CMM 1.5 - 8.1 12/12/2017 [facility] HEMATOLOGY Eosinophils 6.8 % 0.0 - 4.0 12/12/2017 [facility] HEMATOLOGY Lymphocytes 16.7 % 20.0 - 40.0 12/12/2017 [facility] HEMATOLOGY Eosinophils # 0.6 K/CMM 0.0 - 0.5 12/12/2017 [facility] HEMATOLOGY Monocytes # 0.8 K/CMM 0.0 - 0.8 12/12/2017 [facility] HEMATOLOGY Lymphocytes # 1.5 K/CMM 1.0 - 5.5 12/12/2017 [facility] HEMATOLOGY Segs 67.4 % 45.0 - 75.0 12/12/2017 [facility] HEMATOLOGY PROTIME 13.8 s 12.0 - 14.7 12/12/2017 [facility] HEMATOLOGY aPTT 28.0 s 22.9 - 35.8 12/12/2017 [facility] HEMATOLOGY INR 1.06 0.85 - 1.17 12/12/2017 [facility] SPECIAL CHEMISTRY Hgb A1C 6.9 % <=5.6 % 12/12/2017 [facility] URINE AND STOOL UA Protein Negative mg/dL Negative mg/dL 12/12/2017 [facility] URINE AND STOOL UA Glucose Negative mg/dL Negative mg/dL 12/12/2017 [facility] URINE AND STOOL UA Ketones Negative mg/dL Negative mg/dL 12/12/2017 [facility] URINE AND STOOL UA Blood Negative (12/12/17 9:15 AM) Negative 12/12/2017 [facility] URINE AND STOOL UA Bili Negative *NA* (12/12/17 9:15 AM) Negative 12/12/2017 [facility] URINE AND STOOL UA Urobilinogen 0.2 EU/dL 0.1 - 1.0 12/12/2017 [facility] URINE AND STOOL UA Nitrite Negative (12/12/17 9:15 AM) Negative 12/12/2017 [facility] URINE AND STOOL UA Leuk Est Negative (12/12/17 9:15 AM) Negative 12/12/2017 [facility] URINE AND STOOL UA Turbidity Clear (12/12/17 9:15 AM) Clear 12/12/2017 [facility] URINE AND STOOL UA Spec Grav 1.025 <=1.030 12/12/2017 [facility] URINE AND STOOL UA Color Yellow *NA* (12/12/17 9:15 AM) Yellow 12/12/2017 [facility] URINE AND STOOL UA pH 6.0 5.0 - 8.0 12/12/2017 [facility] URINE AND STOOL UA RBC 0-2 /HPF 0 - 2 12/12/2017 [facility] URINE AND STOOL UA Bacteria Occasional /HPF None Seen /HPF 12/12/2017 [facility] URINE AND STOOL UA Hyal Cast 6- 10 (12/12/17 9:15 AM) 0 - 2 12/12/2017 [facility] URINE AND STOOL UA Sq Epi Occasional /LPF Few /LPF 12/12/2017 [facility] URINE AND STOOL UA WBC 3-5 /HPF None Seen /HPF 12/12/2017 [facility] Vital Signs Vital Sign Value Date Comments Source Heart Rate 78 09/23/2018 [facility] Respitory Rate 18 09/23/2018 [facility] Temperature Oral (F) 98.7 F 09/23/2018 [facility] Systolic (mm Hg) 156 09/23/2018 [facility] Diastolic (mm Hg) 73 09/23/2018 [facility] Temperature Oral (F) 97.3 F 09/23/2018 [facility] Systolic (mm Hg) 145 09/23/2018 [facility] Diastolic (mm Hg) 60 09/23/2018 [facility] Heart Rate 60 09/23/2018 [facility] Respitory Rate 16 09/23/2018 [facility] Heart Rate 55 09/23/2018 [facility] Systolic (mm Hg) 121 09/23/2018 [facility] Diastolic (mm Hg) 64 09/23/2018 [facility] Respitory Rate 16 09/23/2018 [facility] Temperature Oral (F) 98 F 09/23/2018 [facility] Weight 86.847 09/22/2018 [facility] BMI Calculated 29.11 09/22/2018 [facility] Height 172.72 cm 09/22/2018 [facility] Systolic (mm Hg) 142 12/24/2017 [facility] Diastolic (mm Hg) 84 12/24/2017 [facility] Temperature Oral (F) 98.6 F 12/24/2017 [facility] Respitory Rate 18 12/24/2017 [facility] Heart Rate 62 12/24/2017 [facility] Heart Rate 45 12/24/2017 [facility] Systolic (mm Hg) 118 12/24/2017 [facility] Diastolic (mm Hg) 62 12/24/2017 [facility] Respitory Rate 16 12/24/2017 [facility] Temperature Oral (F) 98.3 F 12/24/2017 [facility] Systolic (mm Hg) 138 12/24/2017 [facility] Diastolic (mm Hg) 68 12/24/2017 [facility] Respitory Rate 18 12/24/2017 [facility] Temperature Oral (F) 97.7 F 12/24/2017 [facility] Heart Rate 54 12/24/2017 [facility] Height 172.72 cm 12/23/2017 [facility] BMI Calculated 30.93 12/23/2017 [facility] Weight 92.273 12/23/2017 [facility] Encounters Location Location Details Encounter Type Encounter Number Reason For Visit Attending Provider ADM Date DC Date Status Source [facility] Orthopedic [facility] Spine [facility] Inpatient [id number] Joe Montes 12/23/2017 12/24/2017 [facility] OP Therapy Patients [id number] [facility] 01/09/2018 02/08/2018 [facility] OP Therapy Patients [id number] [facility] 02/10/2018 03/12/2018 [facility] [place] [facility] Bedded Outpatient [id number] [facility] 09[facility]22/2018 09/23/2018 [facility] OP Therapy Patients [id number] [facility] 10/07/2018 11/06/2018 [facility] Procedures Procedure Code Date Perfomer Comments Source Total knee replacement [id number] 09/22/2018 [facility] Total knee replacement [id number] 09/22/2018 [facility] Knee replacement [id number] 12/23/2017 [facility] Knee replacement [id number] 12/23/2017 [facility] Stent placement [id number] 11/21/2016 [facility] Stent placement [id number] 11/21/2016 [facility] Carotid endarterectomy [id number] 08/08/2016 [facility] Carotid endarterectomy [id number] 08/08/2016 [facility] Lithotripsy [id number] 02/04/2015 [facility] Lithotripsy [id number] 02/04/2015 [facility] Lumbar laminectomy and excision of intradural spinal lesion [id number] 03/28/2011 [facility] Lumbar laminectomy and excision of intradural spinal lesion [id number] 03/28/2011 [facility] Cataract extraction and insertion of intraocular lens 207808626 10/05/2009 [facility] Cataract extraction and insertion of intraocular lens 846251076 10/05/2009 [facility] 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
--- OUTSIDE RECORDS SUMMARY | 2019-02-06 05:11 | XMS REPORT | Summary of Care ---
Author Author [facility] Address Unknown Phone Unavailable Encounter DB Kirkpatrick(FIN) [id number] Date(s): 02/10/18 - 03/11/18 [facility] Encounter Diagnosis Presence of right artificial knee joint (Final) - 03/14/18 Pain in right knee (Final) - Other abnormalities of gait and mobility (Final) - Weakness (Final) - Discharge Disposition: Home or Self [...]
--- OUTSIDE RECORDS SUMMARY | 2019-02-06 05:11 | XMS REPORT ---
Author Author [facility] Address Unknown Phone Unavailable Care Team Providers Care Ict Developer Name Role Phone YESI BOYLE Unavailable Unavailable Problems This patient has no known problems. Allergies, Adverse Reactions, Alerts This patient has no known allergies or adverse reactions. Medications This patient has no known medications. Results Test Description Test Time Test Comments Text Results Atomic Results Result Comments ABDOMEN-1VIEW ([facility]) 2019-02-05 12:59:[address] [address] Patient Name: Xiomy GAUTHIER MR #: [id number] : 1940 Age/Sex: 78/M Req #: [id number] Adm Physician: Ordered by: YESI BOYLE MD Report #: [id number] Location: OR Room/Bed: Procedure: [id number] DX/ABDOMEN-1VIEW ([facility]) Exam Date: 02/05/19 Exam Time: 1201 REPORT STATUS: Signed Abdomen, 2 views. History: Renal stones. Comparison: [facility] dated 12/18/2018 Findings: Small stones overlie the lower pole of the right kidney. Stones previously noted overlying the mid portion of the right kidney not definitely visualized on this study. The intestinal gas pattern is nonobstructive. There no masses. Clips from prior cholecystectomy. Extensive degenerative changes of the spine. IMPRESSION: Right lower pole renal stones. Signed by: Dr. Valerio Whittaker DO on 02/05/2019 1:04 PM Dictated By: VALERIO WHITTAKER DO 1304 Transcribed By: OLESYA on 02/05/19 1304 COPY TO: YESI BOYLE MD CHEST 2 VIEWS 2019-02-03 15:27:00 [place] [address] Patient Name: Xiomy GAUTHIER MR #: [id number] : 1940 Age/Sex: 78/M Req #: [id number] Adm Physician: Ordered by: YESI BOYLE MD Report #: [id number] Location: OR Room/Bed: Procedure: [id number] DX/CHEST 2 VIEWS Exam Date: 02/03/19 Exam Time: 1507 REPORT STATUS: Signed EXAMINATION: CHEST 2 VIEWS INDICATION: Pre-op. COMPARISON: None FINDINGS: TUBES and LINES: None. LUNGS: Lungs are well inflated. There is no evidence of pneumonia or pulmonary edema. Small nodular opacity overlying the right lower lung likely represents nipple shadow. PLEURA: No pleural effusion or pneumothorax. HEART AND MEDIASTINUM: The cardiomediastinal silhouette is mildly enlarged. Tortuous thoracic aorta. BONES AND SOFT TISSUES: No acute osseous abnormality. Status post median sternotomy. UPPER ABDOMEN: No free air under the diaphragm. IMPRESSION: No acute radiographic abnormality. Signed by: Dr. Cody Horvath MD on 02/03/2019 3:29 PM Dictated By: CODY HORVATH MD 1529 Transcribed By: OLESYA on 02/03/19 1529 COPY TO: YESI BOYLE MD ABDOMEN-1VIEW ([facility]) 2018-12-18 14:59:00 [place] [address] Patient Name: Xiomy GAUTHIER MR #: [id number] : 1940 Age/Sex: 78/M Req #: [id number] Adm Physician: Ordered by: YESI BOYLE MD Report #: [id number] Location: [facility] Room/Bed: Procedure: [id number] DX/ABDOMEN-1VIEW ([facility]) Exam Date: 12/18/18 Exam Time: 1430 REPORT STATUS: Signed Exam: KUB - 3 views Clinical History: Renal calculus. Comparison: None. Findings: Nonobstructive bowel gas pattern. There is a 6 mm calcification projecting over the right lower kidney and a 3 mm calcification projecting over the right mid kidney. No calcifications projecting over the left kidney or the expected course of the ureters. Calcified phleboliths in the pelvis. No acute bony abnormality. Degenerative changes of the lower lumbar spine. Dextroconvex curvature of the lumbar spine. Status post cholecystectomy. Impression: Calcifications measuring 3 mm and 6 mm overlying the right kidney may represent stones. Signed by: Dr. Cody Horvath MD on 12/18/2018 3:01 PM Dictated By: CODY HORVATH MD 1501 Transcribed By: OLESYA on 12/18/18 1501 COPY TO: YESI BOYLE MD ABDOMEN-1VIEW ([facility]) [place] [address] Patient Name: Xiomy GAUTHIER MR #: [id number] : 1940 Age/Sex: 76/M Req #: [id number] Adm Physician: Ordered by: YESI BOYLE MD Report #: [id number] Location: [facility] Room/Bed: Procedure: [id number] DX/ABDOMEN-1VIEW ([facility]) Exam Date: 06/04/17 Exam Time: 1515 REPORT STATUS: Signed PROCEDURE: X-RAY ABDOMEN - [facility] COMPARISON: 11/12/16 INDICATIONS: calculus of kidney FINDINGS: Limited by body habitus. There is a non-obstructed bowel-gas pattern. Unchanged 4 mm calcification overlying right renal shadow. Unchanged pelvic phleboliths. There are no acute osseous abnormalities. Multilevel degenerative changes of the spine. The lung bases are clear. Right upper quadrant cholecystectomy clips. CONCLUSION: Unchanged 4 mm right renal calculus. Nonobstructive bowel gas pattern. Dictated by: Georgi Romo M.D. on 06/04/2017 at 18:47 Electronically approved by: Georgi Romo M.D. on 06/04/2017 at 18:47 Dictated By: GEORGI ROMO MD 46 Transcribed By: FORREST on 06/04/171846 COPY TO: YESI BOYLE MD
--- OUTSIDE RECORDS SUMMARY | 2019-02-06 05:11 | XMS REPORT | Summary of Care ---
Author Author [facility] Organization [facility] Address Unknown Phone Unavailable Encounter DB Kirkpatrick(SILVINO) [id number] Date(s): 09/22/18 - 09/23/18 [facility] Sp[facility] [address] [address]- [phone] Discharge Disposition: Home or Self Care Attending Physician: Joe Montes MD Referring Physician: Joe Montes MD Vital Signs 1 2 3 Most recent to oldest [Reference Range]: 172.72 cm (09/22/18 8:32 AM) Height 98.7 DegF (09/23/18 7:23 AM) 97.3 DegF (09/23/18 3:16 AM) 98 DegF (09/22/18 11:18 PM) Temperature Oral [96.4-99.1 DegF] 156/73 mmHg *HI* (09/23/18 7:23 AM) 145/60 mmHg *HI* (09/23/18 3:16 AM) 121/64 mmHg (09/22/18 11:18 PM) Blood Pressure [90-140/60-90 mmHg] 18 BRMIN (09/23/18 7:23 AM) 16 BRMIN (09/23/18 3:16 AM) 16 BRMIN (09/22/18 11:18 PM) Respiratory Rate [14-20 BRMIN] 78 bpm (09/23/18 7:23 AM) 60 bpm (09/23/18 3:16 AM) 55 bpm *LOW* (09/22/18 11:18 PM) Peripheral Pulse Rate [60-100 bpm] 86.847 kg (09/22/18 8:32 AM) Weight 29.11 m2 (09/22/18 8:32 AM) Body Mass Index Problem List Condition [...] Weight 86.847, kg, Start date: 09/22/18 21:00:00 OPERATING ROOM AIDE, Duration: 30 day, Stop date: 10/22/18 15:00:00 OPERATING ROOM AIDE Notes: Max acetaminophen 4000 mg/day (4 gm/day). (Same as: Tylenol Extra Streng ) Start Date: 09/22/18 Stop Date: 09/23/18 Status: Discontinued acetaminophen 1,000 mg, 2 tab, Route: PO, Drug form: TAB, ONCE, Dosing Weight 89.318, kg, Star t date: 09/22/18 8:26:00 OPERATING ROOM AIDE, Stop date: 09/22/18 8:26:00 OPERATING ROOM AIDE Notes: Max acetaminophen 4000 mg/day (4 gm/day). (Same as: Tylenol Extra Streng ) Start Date: 09/22/18 Stop Date: 09/22/18 Status: Completed Advil 200 mg oral tablet 600 mg=3 tab, PO, Q4H, PRN Pain, # 120 tab, 0 Refill(s) Start Date: 09/04/18 Stop Date: 09/23/18 Status: Discontinued amLODIPine 10 mg, PO, Daily, 0 Refill(s) Start Date: 09/04/18 Status: Ordered amLODIPine 10 mg, 1 tab, Route: PO, Drug form: TAB, Daily, Dosing Weight 86.847, kg, Start date: 09/23/18 9:00:00 OPERATING ROOM AIDE, Duration: 30 day, Stop date: 10/22/18 9:00:00 OPERATING ROOM AIDE Notes: (Same as: Norvasc) Start Date: 09/23/18 Stop Date: 09/23/18 Status: Discontinued ANES flumazenil 0.2 mg, 2 mL, Route: IVP, Drug form: INJ, PRN, Dosing Weight 86.847, kg, PRN Quincy zodiazepine Reversal, Initial dose, Start date: 09/22/18 9:55:00 OPERATING ROOM AIDE, Stop date: 09/22/18 18:00:00 OPERATING ROOM AIDE Notes: (Same as: Romazicon) Start Date: 09/22/18 Stop Date: 09/22/18 Status: Discontinued ANES HYDROmorphone 0.5 mg, 0.25 mL, Route: IVP, Drug form: INJ, Q5Min, Dosing Weight 86.847, kg, OK N Pain Score 7-10, Start date: 09/22/18 9:55:00 OPERATING ROOM AIDE, Duration: 4 doses or times, Stop date: 09/22/18 18:00:00 OPERATING ROOM AIDE Notes: Same as Dilaudid Start Date: 09/22/18 Stop Date: 09/22/18 Status: Discontinued ANES naloxone 0.4 mg, 1 mL, Route: IVP, Drug form: INJ, Q2MIN, Dosing Weight 86.847, kg, PRN N arcotic Reversal, Start date: 09/22/18 9:55:00 OPERATING ROOM AIDE, Duration: 8 doses or times, Stop date: Limited # of times Notes: Same as Narcan Start Date: 09/22/18 Stop Date: 09/22/18 Status: Discontinued ANES ondansetron 4 mg, 2 mL, Route: IVP, Drug form: INJ, ONCE, Dosing Weight 86.847, kg, PRN Naus ea & Vomiting, Start date: 09/22/18 9:55:00 OPERATING ROOM AIDE Notes: (Same as: Usha) MEDICATION WASTE Product Size: 4 mgProduct Was marlene: ___ mg Start Date: 09/22/18 Stop Date: 09/22/18 Status: Discontinued aspirin 325 mg tablet, enteric coated 325 mg=1 tab, PO, BID, # 84 tab, 0 Refill(s) Start Date: 09/23/18 Stop Date: 11/04/18 Status: Ordered aspirin 325 mg tablet, enteric coated 325 mg, 1 tab, Route: PO, Drug form: ECTAB, BID, Dosing Weight 86.847, kg, Begin 8 am POD #1, Start date: 09/23/18 8:00:00 OPERATING ROOM AIDE, Duration: 30 day, Stop date: 17:00:00 OPERATING ROOM AIDE Notes: (Do Not Crush) Do not crush or chew. Start Date: 09/23/18 Stop Date: 09/23/18 Status: Discontinued aspirin 81 mg tablet, enteric coated 81 mg=1 tab, PO, Daily, # 90 tab, 3 Refill(s) Start Date: 09/04/18 Stop Date: 09/23/18 Status: Discontinued Bactrim DS 800 mg- 160 mg oral tablet 1 tab, PO, BID, X 10 day, # 20 tab, 0 Refill(s) Start Date: 09/23/18 Stop Date: 10/03/18 Status: Ordered CeleBREX 200 mg, 1 cap, Route: PO, Drug form: CAP, BID, Dosing Weight 86.847, kg, Start d ate: 09/22/18 18:00:00 OPERATING ROOM AIDE, Duration: 30 day, Stop date: 10/22/18 17:00:00 OPERATING ROOM AIDE Notes: NSAID. Please check indication. Not for seizure. (Same As: CeleBREX) Start Date: 09/22/18 Stop Date: 09/23/18 Status: Discontinued celecoxib 200 mg, 1 cap, Route: PO, Drug form: CAP, ONCALL, Dosing Weight 89.318, kg, Star t date: 09/22/18 9:00:00 OPERATING ROOM AIDE, Duration: 6 hr, Stop date: 09/22/18 14:59:00 OPERATING ROOM AIDE Notes: NSAID. Please check indication. Not for seizure. (Same As: CeleBREX) Start Date: 09/22/18 Stop Date: 09/22/18 Status: Completed dexamethasone (ANES) Route: IV, Drug form: INJ, ONCE, Stop date: 09/22/18 11:13:00 OPERATING ROOM AIDE Start Date: 09/22/18 Stop Date: 09/22/18 Status: Completed Dextrose 50% Syringe 12.5 gm, 25 mL, Route: IVP, Drug Form: INJ, Dosing Weight 86.847, kg, PRN, PRN B lood Glucose Results, Start date: 09/22/18 8:49:00 OPERATING ROOM AIDE, Duration: 30 day, Stop d ate: 10/22/18 8:48:00 OPERATING ROOM AIDE Start Date: 09/22/18 Stop Date: 09/23/18 Status: Discontinued Dextrose 50% Syringe 25 gm, 50 mL, Route: IVP, Drug Form: INJ, Dosing Weight 86.847, kg, PRN, PRN Blo od Glucose Results, Start date: 09/22/18 8:49:00 OPERATING ROOM AIDE, Duration: 30 day, Stop cristhian e: 10/22/18 8:48:00 OPERATING ROOM AIDE Start Date: 09/22/18 Stop Date: 09/23/18 Status: Discontinued docusate-senna 50 mg-8.6 mg oral tablet 1 tab, Route: PO, Drug Form: TAB, Dosing Weight 86.847, kg, Daily, Start date: 0 09/23/18 9:00:00 OPERATING ROOM AIDE, Duration: 30 day, Stop date: 10/22/18 9:00:00 OPERATING ROOM AIDE Notes: (Same as Lakeshia-S) Equiv. to Madelyn-Colace. Start Date: 09/23/18 Stop Date: 09/23/18 Status: Discontinued ergocalciferol 50,000 intl units oral capsule 50,000 IntlUnit, 1 cap, Route: PO, Drug form: CAP, Q7D, Dosing Weight 86.847, kg , Start date: 09/22/18 18:00:00 OPERATING ROOM AIDE, Duration: 30 day, Stop date: 10/20/18 9:00: 00 OPERATING ROOM AIDE Notes: (Same as: Vitamin D) "Do Not Crush" Start Date: 09/22/18 Stop Date: 09/22/18 Status: Deleted famotidine 20 mg, 1 tab, Route: PO, Drug form: TAB, QPM, Start date: 09/22/18 17:00:00 OPERATING ROOM AIDE, Duration: 30 day, Stop date: 10/21/18 17:00:00 OPERATING ROOM AIDE Notes: (Same as: Pepcid) Start Date: 09/22/18 Stop Date: 09/23/18 Status: Discontinued famotidine 20 mg, 1 tab, Route: PO, Drug form: TAB, ONCE, Dosing Weight 89.318, kg, Pre-ope rative., Start date: 09/22/18 8:26:00 OPERATING ROOM AIDE, Stop date: 09/22/18 8:26:00 OPERATING ROOM AIDE Notes: (Same as: Pepcid) Start Date: 09/22/18 Stop Date: 09/22/18 Status: Completed fenofibrate 130 mg oral capsule 145 mg, 1 tab, Route: PO, Drug form: TAB, Daily, Dosing Weight 86.847, kg, Start date: 09/23/18 9:00:00 OPERATING ROOM AIDE, Duration: 30 day, Stop date: 10/22/18 9:00:00 OPERATING ROOM AIDE Notes: (Same as: Tricor) Start Date: 09/23/18 Stop Date: 09/23/18 Status: Discontinued gabapentin 1,200 mg, 3 cap, Route: PO, Drug form: CAP, BID, Dosing Weight 89.318, kg, Start date: 09/22/18 18:00:00 OPERATING ROOM AIDE, Duration: 30 day, Stop date: 10/22/18 17:00:00 OPERATING ROOM AIDE Notes: (Same as: Neurontin) Start Date: 09/22/18 Stop Date: 09/23/18 Status: Discontinued gabapentin 300 mg oral capsule 1,500 mg, 5 cap, Route: PO, Drug form: CAP, QAM, Dosing Weight 86.847, kg, Start date: 09/23/18 9:00:00 OPERATING ROOM AIDE, Duration: 30 day, Stop date: 10/22/18 9:00:00 OPERATING ROOM AIDE Notes: (Same as: Neurontin) Start Date: 09/23/18 Stop Date: 09/22/18 Status: Discontinued gabapentin 300 mg oral capsule 1,500 mg, 5 cap, Route: PO, Drug form: CAP, QPM, Dosing Weight 86.847, kg, Start date: 09/22/18 17:00:00 OPERATING ROOM AIDE, Duration: 30 day, Stop date: 10/21/18 17:00:00 OPERATING ROOM AIDE Notes: (Same as: Neurontin) Start Date: 09/22/18 Stop Date: 09/22/18 Status: Discontinued glucagon 1 mg, Route: IM, Drug form: PDR/INJ, PRN, Dosing Weight 86.847, kg, PRN Blood Gl ucose Results, Start date: 09/22/18 8:49:00 OPERATING ROOM AIDE, Duration: 30 day, Stop date: 8:48:00 OPERATING ROOM AIDE Start Date: 09/22/18 Stop Date: 09/23/18 Status: Discontinued glycopyrrolate (ANES) Route: IV, Drug form: INJ, ONCE, Stop date: 09/22/18 12:16:00 OPERATING ROOM AIDE Start Date: 09/22/18 Stop Date: 09/22/18 Status: Completed Home Medication PO, Daily, Refill(s) 0 Start Date: 09/04/18 Stop Date: 09/23/18 Status: Discontinued hydrALAZINE (ANES) Route: IV, Drug form: INJ, ONCE, Stop date: 09/22/18 11:28:00 OPERATING ROOM AIDE Start Date: 09/22/18 Stop Date: 09/22/18 Status: Completed insulin lispro 4 unit, 0.04 mL, Route: SUB-Q, Drug form: SOLN, TID-Before Meals, Dosing Weight 86.847, kg, PRN Blood Glucose Results, Start date: 09/22/18 8:49:00 OPERATING ROOM AIDE, Duratio n: 30 day, Stop date: 10/22/18 8:48:00 OPERATING ROOM AIDE Notes: (Same as: Humalog ) Roll in palms of hands gently; Do not shake `vigorou sly. "Single Patient Use Only " WASTE: F/P - Black; E - [employer] [address] able for 28 days at room temperature.Expires in days from Da te Start Date: 09/22/18 Stop Date: 09/23/18 Status: Discontinued insulin lispro 3 unit, 0.03 mL, Route: SUB-Q, Drug form: SOLN, TID-Before Meals, Dosing Weight 86.847, kg, PRN Blood Glucose Results, Start date: 09/22/18 8:49:00 OPERATING ROOM AIDE, Duratio n: 30 day, Stop date: 10/22/18 8:48:00 OPERATING ROOM AIDE Notes: (Same as: Humalog ) Roll in palms of hands gently; Do not shake `vigorou sly. "Single Patient Use Only " WASTE: F/P - Black; E - [facility] [address] [address] able for 28 days at room temperature.Expires in days from Da te Start Date: 09/22/18 Stop Date: 09/23/18 Status: Discontinued insulin lispro 5 unit, 0.05 mL, Route: SUB-Q, Drug form: SOLN, TID-Before Meals, Dosing Weight 86.847, kg, PRN Blood Glucose Results, Start date: 09/22/18 8:49:00 OPERATING ROOM AIDE, Duratio n: 30 day, Stop date: 10/22/18 8:48:00 OPERATING ROOM AIDE Notes: (Same as: Humalog ) Roll in palms of hands gently; Do not shake `vigorou sly. "Single Patient Use Only " WASTE: F/P - Black; E - [facility] [address] able for 28 days at room temperature.Expires in days from Da te Start Date: 09/22/18 Stop Date: 09/23/18 Status: Discontinued insulin lispro 1 unit, 0.01 mL, Route: SUB-Q, Drug form: SOLN, TID-Before Meals, Dosing Weight 86.847, kg, PRN Blood Glucose Results, Start date: 09/22/18 8:49:00 OPERATING ROOM AIDE, Duratio n: 30 day, Stop date: 10/22/18 8:48:00 OPERATING ROOM AIDE Notes: (Same as: Humalog ) Roll in palms of hands gently; Do not shake `vigorou sly. "Single Patient Use Only " WASTE: F/P - Black; E - [facility] [address] able for 28 days at room temperature.Expires in days from Da te Start Date: 09/22/18 Stop Date: 09/23/18 Status: Discontinued insulin lispro 2 unit, 0.02 mL, Route: SUB-Q, Drug form: SOLN, TID-Before Meals, Dosing Weight 86.847, kg, PRN Blood Glucose Results, Start date: 09/22/18 8:49:00 OPERATING ROOM AIDE, Duratio n: 30 day, Stop date: 10/22/18 8:48:00 OPERATING ROOM AIDE Notes: (Same as: Humalog ) Roll in palms of hands gently; Do not shake `vigorou sly. "Single Patient Use Only " WASTE: F/P - Black; E - [facility] [address] able for 28 days at room temperature.Expires in days from Da te Start Date: 09/22/18 Stop Date: 09/23/18 Status: Discontinued Kayexalate 30 gm, 120 mL, Route: PO, Drug form: SUSP, ONCE, Dosing Weight 86.847, kg, Start date: 09/23/18 7:36:00 OPERATING ROOM AIDE, Stop date: 09/23/18 7:36:00 OPERATING ROOM AIDE Notes: (sodium polystyrene sulfonate 15 gm/60 ml REJI) Shake well before use. (Same as: Kayexalate, SPS) Start Date: 09/23/18 Stop Date: 09/23/18 Status: Completed Lactated Ringers (Bolus) IV 1,000 mL, 1,000 ml/hr, Infuse Over: 1 hr, Route: IV, 1,000, Drug form: INJ, ONCE , Priority: STAT, Dosing Weight 89.318 kg, Start date: 09/22/18 8:26:00 OPERATING ROOM AIDE, Sto p date: 09/22/18 8:26:00 OPERATING ROOM AIDE Start Date: 09/22/18 Stop Date: 09/22/18 Status: Completed Lactated Ringers Injection IV (ANES) 1000 mL Route: IV, Total Volume: 1,000, Start date: 09/22/18 10:14:00 OPERATING ROOM AIDE, Stop date: 11:14:00 OPERATING ROOM AIDE Start Date: 09/22/18 Stop Date: 09/22/18 Status: Completed Lactated Ringers IV 1,000 mL 1,000 mL, Rate: 75 ml/hr, Infuse over: 13.3 hr, Route: IV, Dosing Weight 86.847 kg, Total Volume: 1,000, Start date: 09/22/18 12:16:00 OPERATING ROOM AIDE, Duration: 30 day, St op date: 10/22/18 12:15:00 OPERATING ROOM AIDE, 2.06, m2 Start Date: 09/22/18 Stop Date: 09/23/18 Status: Discontinued Lactated Ringers IV 1,000 mL 1,000 mL, Rate: 100 ml/hr, Infuse over: 10 hr, Route: IV, Dosing Weight 89.318 k g, Total Volume: 1,000, Start date: 09/22/18 8:26:00 OPERATING ROOM AIDE, Duration: 30 day, Stop date: 10/22/18 8:25:00 OPERATING ROOM AIDE, 2.06, m2 Start Date: 09/22/18 Stop Date: 09/22/18 Status: Discontinued Levaquin 750 mg, 150 mL, Route: IVPB, Drug form: SOLTorie ONCALL, Dosing Weight 89.318, kg, SCIP pre-op dose, Start date: 09/22/18 9:00:00 OPERATING ROOM AIDE, Duration: 1 doses or times, Stop date: 09/22/18 15:00:00 OPERATING ROOM AIDE, ABX Indication: Surgical Prophylaxis Notes: (Same as:Levaquin) Start Date: 09/22/18 Stop Date: 09/23/18 Status: Discontinued levofloxacin (ANES) 5 mg Route: IV, Drug form: INJ, Start date: 09/22/18 10:28:00 OPERATING ROOM AIDE, Stop date: 9 11:28:00 OPERATING ROOM AIDE Start Date: 09/22/18 Stop Date: 09/22/18 Status: Completed lidocaine (ANES) Route: IV, Drug form: INJ, ONCE, Stop date: 09/22/18 10:58:00 OPERATING ROOM AIDE Start Date: 09/22/18 Stop Date: 09/22/18 Status: Completed melatonin 3 mg, 1 tab, Route: PO, Drug form: TAB, Bedtime, Dosing Weight 86.847, kg, PRN I nsomnia, Start date: 09/22/18 12:16:00 OPERATING ROOM AIDE, Duration: 30 day, Stop date: 9 12:15:00 OPERATING ROOM AIDE Notes: (Same as: Melatonin) Start Date: 09/22/18 Stop Date: 09/23/18 Status: Discontinued meloxicam 7.5 mg oral tablet 7.5 mg=1 tab, PO, Daily, # 30 tab, 1 Refill(s) Start Date: 09/23/18 Status: Ordered metFORMIN 500 mg, 1 tab, Route: PO, Drug form: TAB, Daily, Dosing Weight 86.847, kg, Start date: 09/23/18 9:00:00 OPERATING ROOM AIDE, Duration: 30 day, Stop date: 10/22/18 9:00:00 OPERATING ROOM AIDE Notes: (Same as: Glucophage) Take with meal Start Date: 09/23/18 Stop Date: 09/23/18 Status: Discontinued Milk of Magnesia 30 ml, Route: PO, Drug Form: SUSP, Dosing Weight 86.847, kg, Q6H, PRN as needed for constipation, Start date: 09/22/18 12:16:00 OPERATING ROOM AIDE, Duration: 30 day, Stop date : 10/22/18 12:15:00 OPERATING ROOM AIDE Notes: (Same as: Milk of Magnesia, MOM) Start Date: 09/22/18 Stop Date: 09/23/18 Status: Discontinued morphine 5 mg/mL preservative-free injectable solution 1 mg, 0.1 mL, Route: IVP, Drug form: INJ, Q3H, Dosing Weight 86.847, kg, PRN Doroteo n Score 7-10, Start date: 09/22/18 12:16:00 OPERATING ROOM AIDE, Duration: 30 day, Stop date: 12:15:00 OPERATING ROOM AIDE Notes: (Same as:MORPhine Sulfate) Start Date: 09/22/18 Stop Date: 09/23/18 Status: Discontinued niCARdipine (ANES) Route: IV, Drug form: INJ, ONCE, Stop date: 09/22/18 11:33:00 OPERATING ROOM AIDE Start Date: 09/22/18 Stop Date: 09/22/18 Status: Completed [place] 5/325 oral tablet 1 tab, PO, Q4H, PRN Pain, X 10 day, # 60 tab, 0 Refill(s) Start Date: 09/23/18 Stop Date: 10/03/18 Status: Ordered normal saline 0.9% IV 500 mL 500 mL, Rate: 500 ml/hr, Infuse over: 1 hr, Route: IV, Dosing Weight 86.847 kg, Total Volume: 500, Start date: 09/23/18 7:37:00 OPERATING ROOM AIDE, Duration: 1 doses or times, Stop date: 09/23/18 8:36:00 OPERATING ROOM AIDE, 2.06, m2 Start Date: 09/23/18 Stop Date: 09/23/18 Status: Completed normal saline 0.9% IV 500 mL 500 mL, Rate: 500 ml/hr, Infuse over: 1 hr, Route: IV, Dosing Weight 86.847 kg, Total Volume: 500, Start date: 09/23/18 9:53:00 OPERATING ROOM AIDE, Duration: 1 doses or times, Stop date: 09/23/18 10:52:00 OPERATING ROOM AIDE, 2.06, m2 Start Date: 09/23/18 Stop Date: 09/23/18 Status: Completed ondansetron 4 mg, 2 mL, Route: IVP, Drug form: INJ, Q4H, Dosing Weight 86.847, kg, PRN Nause a, Start date: 09/22/18 12:16:00 OPERATING ROOM AIDE, Duration: 30 day, Stop date: 10/22/18 12:1 5:00 OPERATING ROOM AIDE Notes: (Same as: Usha) MEDICATION WASTE Product Size: 4 mgProduct Was marlene: ___ mg Start Date: 09/22/18 Stop Date: 09/23/18 Status: Discontinued ondansetron (ANES) Route: IV, Drug form: INJ, ONCE, Stop date: 09/22/18 12:16:00 OPERATING ROOM AIDE Start Date: 09/22/18 Stop Date: 09/22/18 Status: Completed oxyCODONE 5 mg immediate release 10 mg, 2 tab, Route: PO, Drug form: TAB, Q4H, Dosing Weight 86.847, kg, PRN Pain Score 7-10, Start date: 09/22/18 12:16:00 OPERATING ROOM AIDE, Duration: 30 day, Stop date: 12:15:00 OPERATING ROOM AIDE Notes: (Same as: Roxicodone) Start Date: 09/22/18 Stop Date: 09/23/18 Status: Discontinued oxyCODONE 5 mg oral tablet 5 mg, 1 tab, Route: PO, Drug form: TAB, Q4H, Dosing Weight 86.847, kg, PRN Pain Score 4-6, Start date: 09/22/18 12:16:00 OPERATING ROOM AIDE, Duration: 30 day, Stop date: 10/22 12:15:00 OPERATING ROOM AIDE Notes: (Same as: Roxicodone) Start Date: 09/22/18 Stop Date: 09/23/18 Status: Discontinued oxyCODONE 5 mg oral tablet 5 mg, 1 tab, Route: PO, Drug form: TAB, ONCE, Dosing Weight 89.318, kg, Start da te: 09/22/18 8:26:00 OPERATING ROOM AIDE, Stop date: 09/22/18 8:26:00 OPERATING ROOM AIDE Notes: (Same as: Roxicodone) Start Date: 09/22/18 Stop Date: 09/22/18 Status: Completed pantoprazole 40 mg, 1 tab, Route: PO, Drug form: ECTAB, Before Breakfast, Dosing Weight 86.84 7, kg, Start date: 09/23/18 7:30:00 OPERATING ROOM AIDE, Duration: 30 day, Stop date: 10/22/18 7 :30:00 OPERATING ROOM AIDE Notes: Tablet should not be chewed or crushed.(Same as: Protonix) Start Date: 09/23/18 Stop Date: 09/23/18 Status: Discontinued polyethylene glycol 3350 17 gm, 1 pkt, Route: PO, Drug form: PWDR, Daily, Dosing Weight 86.847, kg, Hold for loose stools., Start date: 09/23/18 9:00:00 OPERATING ROOM AIDE, Duration: 30 day, Stop date : 10/22/18 9:00:00 OPERATING ROOM AIDE Notes: Dissolve in 8 oz of water or juice.(Same as: Miralax) Start Date: 09/23/18 Stop Date: 09/23/18 Status: Discontinued polymyxin B sulfate + Sodium Chloride 0.9% IV 250 mL 125,000 unit, Route: IRRIG, ONCALL, Start date: 09/22/18 9:00:00 OPERATING ROOM AIDE, Duration: 1 doses or times, Stop date: 09/22/18 15:00:00 OPERATING ROOM AIDE, ABX Indication: Surgical Pro phylaxis Notes: (Same as: Polymyxin B Sulfate) Start Date: 09/22/18 Stop Date: 09/23/18 Status: Discontinued promethazine 12.5 mg, 1 tab, Route: PO, Drug form: TAB, ONCE, Dosing Weight 89.318, kg, Start date: 09/22/18 8:26:00 OPERATING ROOM AIDE, Stop date: 09/22/18 8:26:00 OPERATING ROOM AIDE Notes: (Same as: Phenergan) Start Date: 09/22/18 Stop Date: 09/22/18 Status: Completed propofol (ANES) Route: IV, Drug form: INJ, ONCE, Stop date: 09/22/18 10:58:00 OPERATING ROOM AIDE Start Date: 09/22/18 Stop Date: 09/22/18 Status: Completed propofol (ANES) 10 mg Route: IV, Drug form: INJ, Start date: 09/22/18 10:24:00 OPERATING ROOM AIDE, Stop date: 9 11:24:00 OPERATING ROOM AIDE Start Date: 09/22/18 Stop Date: 09/22/18 Status: Completed ropivacaine 0.5% 246.25 mg + EPINEPHrine 0.5 mg + cloNIDine 80 microgram + Sodiu m Chloride 0.9% IV 100 ml/hr, Route: InFILtration(local), ONCALL, Start date: 09/22/18 9:00:00 OPERATING ROOM AIDE, Stop date: 09/22/18 15:00:00 OPERATING ROOM AIDE Start Date: 09/22/18 Stop Date: 09/23/18 Status: Discontinued rosuvastatin 10 mg, 1 tab, Route: PO, Drug form: TAB, Bedtime, Dosing Weight 86.847, kg, Star t date: 09/22/18 21:00:00 OPERATING ROOM AIDE, Duration: 30 day, Stop date: 10/21/18 21:00:00 CS T Notes: (Same As: Crestor) Start Date: 09/22/18 Stop Date: 09/23/18 Status: Discontinued tamsulosin 0.4 mg, 1 cap, Route: PO, Drug form: CAP, Daily, Dosing Weight 86.847, kg, Start date: 09/22/18 17:00:00 OPERATING ROOM AIDE, Duration: 30 day, Stop date: 10/21/18 17:00:00 OPERATING ROOM AIDE Notes: (Same As: Flomax) "Do Not Crush" Start Date: 09/22/18 Stop Date: 09/23/18 Status: Discontinued tamsulosin 0.4 mg oral capsule 0.4 mg=1 cap, PO, Bedtime, Start taking on 09/15/18, # 14 cap, 0 Refill(s), Phar elan: [id number] Start Date: 09/09/18 Status: Ordered tizanidine 2 mg, 0.5 tab, Route: PO, Drug form: TAB, Q8H, Dosing Weight 86.847, kg, PRN Spa sm, Start date: 09/22/18 12:16:00 OPERATING ROOM AIDE, Duration: 30 day, Stop date: 10/22/18 12: 15:00 OPERATING ROOM AIDE Notes: (Same As: Zanaflex) Start Date: 09/22/18 Stop Date: 09/23/18 Status: Discontinued tramadol 50 mg, 1 tab, Route: PO, Drug form: TAB, Q4H, Dosing Weight 86.847, kg, PRN Pain Score 1-3, Start date: 09/22/18 12:16:00 OPERATING ROOM AIDE, Duration: 30 day, Stop date: 09/27 03/13 12:15:00 OPERATING ROOM AIDE Notes: Not to exceed 400mg/day. (Same As: Ultram) Start Date: 09/22/18 Stop Date: 09/23/18 Status: Discontinued tranexamic acid (ANES) Route: IV, Drug form: INJ, ONCE, Stop date: 09/22/18 11:03:00 OPERATING ROOM AIDE Start Date: 09/22/18 Stop Date: 09/22/18 Status: Completed vancomycin 1,250 mg, 250 mL, Route: IVPB, Drug form: INJ, ONCALL, Dosing Weight 89.318, kg, Start date: 09/22/18 9:00:00 OPERATING ROOM AIDE, Duration: 1 doses or times, Stop date: 15:00:00 OPERATING ROOM AIDE, ABX Indication: Surgical Prophylaxis Notes: TIME CRITICAL MEDICATIONSame as: Vancocin-NS (premixed)Infusion rate< 1000 mg: infuse over 1 [id number] - 1500 mg: infuse over 1.5 [id number] - 2000 mg: infuse over 2 hours> 2001 mg: infuse over 2.5 hours Start Date: 09/22/18 Stop Date: 09/22/18 Status: Completed vancomycin (SCIP) 1,250 mg, 250 mL, Route: IVPB, Drug form: INJ, ONCE, Dosing Weight 86.847, kg, T nette Critical Medication, Start date: 09/22/18 21:00:00 OPERATING ROOM AIDE, Stop date: 09/22/18 21:00:00 OPERATING ROOM AIDE, Pharmacy to adjust dose for renal function, ABX Indication: Surgic al Prophylaxis Notes: TIME CRITICAL MEDICATIONSame as: Vancocin-NS (premixed)Infusion rate< 1000 mg: infuse over 1 [id number] - 1500 mg: infuse over 1.5 [id number] - 2000 mg: infuse over 2 hours> 2001 mg: infuse over 2.5 hours Start Date: 09/22/18 Stop Date: 09/22/18 Status: Completed vancomycin + Sodium Chloride 0.9% IV 250 mL 500 mg, Route: IRRIG, ONCALL, Start date: 09/22/18 9:00:00 OPERATING ROOM AIDE, Duration: 1 dose s or times, Stop date: 09/22/18 15:00:00 OPERATING ROOM AIDE, ABX Indication: Surgical Prophylax is Notes: TIME CRITICAL MEDICATION(Same As: Vancocin)For adult patients only: Round to nearest 250 mg per Medical Staff approval Start Date: 09/22/18 Stop Date: 09/23/18 Status: Discontinued Vitamin D2 50,000 IntlUnit, 1 cap, Route: PO, Drug form: CAP, Q7D, Dosing Weight 86.847, kg , Start date: 09/22/18 21:00:00 OPERATING ROOM AIDE, Duration: 30 day, Stop date: 10/20/18 21:00 :00 OPERATING ROOM AIDE Notes: (Same as: Vitamin D) "Do Not Crush" Start Date: 09/22/18 Stop Date: 09/23/18 Status: Discontinued Zantac 150 oral tablet 150 mg, 1 tab, Route: PO, Drug form: TAB, QPM, Dosing Weight 86.847, kg, Start d ate: 09/22/18 17:00:00 OPERATING ROOM AIDE, Duration: 30 day, Stop date: 10/21/18 17:00:00 OPERATING ROOM AIDE Notes: (Same as:Zantac)Non-Formulary Item Take before or with meals Start Date: 09/22/18 Stop Date: 09/22/18 Status: Discontinued Results ELECTROLYTES 1 2 3 Most recent to oldest [Reference Range]: 129 mEq/L *LOW* (09/23/18 4:45 AM) 136 mEq/L (09/22/18 2:09 PM) 141 mEq/L (09/09/18 10:42 AM) Sodium Lvl [135-145 mEq/L] 5.4 mEq/L *HI* (09/23/18 4:45 AM) 4.8 mEq/L (09/22/18 2:09 PM) 4.3 mEq/L (09/09/18 10:42 AM) Potassium Lvl [3.5-5.1 mEq/L] 97 mEq/L (09/23/18 4:45 AM) 100 mEq/L (09/22/18 2:09 PM) 103 mEq/L (09/09/18 10:42 AM) Chloride Lvl [95-109 mEq/L] 24 mEq/L (09/23/18 4:45 AM) 24 mEq/L (09/22/18 2:09 PM) 28 mEq/L (09/09/18 10:42 AM) CO2 [24-32 mEq/L] 13.4 mEq/L (09/23/18 4:45 AM) 16.8 mEq/L (09/22/18 2:09 PM) 14.3 mEq/L (09/09/18 10:42 AM) AGAP [10.0-20.0 mEq/L] CHEM PANEL 1 2 3 Most recent to oldest [Reference Range]: 1.10 mg/dL (09/23/18 4:45 AM) 1.03 mg/dL (09/22/18 2:09 PM) 0.84 mg/dL (09/09/18 10:42 AM) Creatinine Lvl [0.50-1.40 mg/dL] 65 mL/min/1.73m2 1 *NA* (09/23/18 4:45 AM) 70 mL/min/1.73m2 2 *NA* (09/22/18 2:09 PM) 85 mL/min/1.73m2 3 *NA* (09/09/18 10:42 AM) eGFR 30 mg/dL *HI* (09/23/18 4:45 AM) 24 mg/dL *HI* (09/22/18 2:09 PM) 21 mg/dL (09/09/18 10:42 AM) BUN [7-22 mg/dL] 233 mg/dL *HI* (09/23/18 4:45 AM) 227 mg/dL *HI* (09/22/18 2:09 PM) 124 mg/dL *HI* (09/09/18 10:42 AM) Glucose Lvl [70-99 mg/dL] 3.9 g/dL (09/09/18 10:42 AM) Albumin Lvl [3.5-5.0 g/dL] 7.9 mg/dL *LOW* (09/23/18 4:45 AM) 8.4 mg/dL *LOW* (09/22/18 2:09 PM) 9.3 mg/dL (09/09/18 10:42 AM) Calcium Lvl [8.5-10.5 mg/dL] 18.4 ng/mL *LOW* (09/09/18 10:42 AM) Vitamin D, 25-OH, Total [30.0-100.0 ng/mL] 1Result Comment: The eGFR is calculated using [...] be mul tiplied by the estimated BMI. 3Result Comment: The eGFR is calculated using the [...] be mul tiplied by the estimated BMI. CARDIAC ENZYMES 1 2 3 Most recent to oldest [Reference Range]: <0.02 ng/mL (09/22/18 9:40 PM) <0.02 ng/mL (09/22/18 6:09 PM) <0.02 ng/mL (09/22/18 4:02 PM) Troponin-I [0.00-0.40 ng/mL] SPECIAL CHEMISTRY 1 2 3 Most recent to oldest [Reference Range]: 7.8 % *HI* (09/12/18 11:04 AM) 7.7 % *HI* (09/09/18 10:42 AM) Hgb A1C [<=5.6 %] 282 uMol/L 1 *NA* (09/12/18 11:04 AM) Fructosamine [0-285 uMol/L] 1Result Comment: Published reference interval for apparently healthy subjects between age 20 and 60 is 205 - 285 umol/L and in a poorly controlled diabetic population is 228 - 563 umol/L with a mean of 396 umol/L. Performed At: [facility] [id number] Jaceyiraj Robles MD Ph:[phone] HEMATOLOGY 1 2 3 Most recent to oldest [Reference Range]: 11.2 K/CMM *HI* (09/23/18 4:45 AM) 6.0 K/CMM (09/09/18 10:42 AM) WBC [3.7-10.4 K/CMM] 3.54 M/CMM *LOW* (09/23/18 4:45 AM) 4.22 M/CMM *LOW* (09/09/18 10:42 AM) RBC [4.70-6.10 M/CMM] 10.9 g/dL *LOW* (09/23/18 4:45 AM) 12.9 g/dL *LOW* (09/09/18 10:42 AM) Hgb [14.0-18.0 g/dL] 32.2 % *LOW* (09/23/18 4:45 AM) 39.1 % *LOW* (09/09/18 10:42 AM) Hct [42.0-54.0 %] 90.9 fL (09/23/18 4:45 AM) 92.7 fL (09/09/18 10:42 AM) MCV [80.0-94.0 fL] 30.8 pg (09/23/18 4:45 AM) 30.5 pg (09/09/18 10:42 AM) MCH [27.0-31.0 pg] 33.9 g/dL (09/23/18 4:45 AM) 32.9 g/dL (09/09/18 10:42 AM) MCHC [32.0-36.0 g/dL] 13.3 % (09/23/18 4:45 AM) 13.6 % (09/09/18 10:42 AM) RDW [11.5-14.5 %] 9.1 fL (09/23/18 4:45 AM) 10.0 fL (09/09/18 10:42 AM) MPV [7.4-10.4 fL] 193 K/CMM (09/23/18 4:45 AM) 223 K/CMM (09/09/18 10:42 AM) Platelet [133-450 K/CMM] 81.4 % *HI* (09/23/18 4:45 AM) 46.0 % (09/09/18 10:42 AM) Segs [45.0-75.0 %] 8.0 % *LOW* (09/23/18 4:45 AM) 38.5 % (09/09/18 10:42 AM) Lymphocytes [20.0-40.0 %] 10.6 % (09/23/18 4:45 AM) 9.2 % (09/09/18 10:42 AM) Monocytes [2.0-12.0 %] 5.5 % *HI* (09/09/18 10:42 AM) Eosinophils [0.0-4.0 %] 0.8 % (09/09/18 10:42 AM) Basophils [0.0-1.0 %] 9.1 K/CMM *HI* (09/23/18 4:45 AM) 2.8 K/CMM (09/09/18 10:42 AM) Neutrophils # [1.5-8.1 K/CMM] 0.9 K/CMM *LOW* (09/23/18 4:45 AM) 2.3 K/CMM (09/09/18 10:42 AM) Lymphocytes # [1.0-5.5 K/CMM] 1.2 K/CMM *HI* (09/23/18 4:45 AM) 0.5 K/CMM (09/09/18 10:42 AM) Monocytes # [0.0-0.8 K/CMM] 0.3 K/CMM (09/09/18 10:42 AM) Eosinophils # [0.0-0.5 K/CMM] Immunizations No data available for this section [...] sob on exertion 23-4 Assessment and Plan Extracted from: Title: Progress Note Author: Raffaele Triplett DO Date: 09/23/18 77 year old with PMH CAD s/p 3 v CABG / stent, T2DM, HTN, HLD, GERD, BPH who presented for L TKA with Dr. Montes. 1.Left knee pain(M25.562) s/p TKA. pt/ot/is/pain control 2.Chest pain(R07.9) resolved.serial troponins negative. ekg unremarkable. 3.Leukocytosis(D72.829) likely reactive. no s/s infection 4.Hyponatremia(E87.1) suspect dehydration given BUN:Cr > 20:1. NS 500 cc bolus. encourage po intake. repeat bmp in 2 days. 5.Hyperkalemia(E87.5) kayexelate x 1. will need to have repeat bmp in 2 days with pcp. monitor closely for hyperkalemia given bactrim / meloxiam. considerchanging bactrim to alternative agent if repeat K+ elevated 6.Acute blood loss anemia(D62) no need for transfusion 7.CAD (coronary artery disease)(I25.10) asa / statin. not on asher or bb 8.DM (diabetes mellitus), type 2(E11.9) metformin 9.HTN (hypertension)(I10) amlodipine 10.High cholesterol(E78.00) fenofibrate / rosuvastatin 11.GERD (gastroesophageal reflux disease)(K21.9) zantac 12.BPH (benign prostatic hyperplasia)(N40.0) tamsulosin 14.Dehydration(E86.0) as evidenced by BUN:Cr > 20:1. hydration as above per primary home call with further questions Extracted from: Title: Clinical Document Author: Justyn Franklin Date: 09/23/18 DISCHARGE SUMMARY DATE OF ADMISSION: 09/22/18 DATE OF DISCHARGE: 09/23/18 ADMITTING PHYSICIAN: Joe Montes MD CONSULTING PHYSICIAN: [facility] Hospitalist ADMISSION DIAGNOSIS: Knee Osteoarthritis DISCHARGE DIAGNOSIS: Same SECONDARY DIAGNOSES: Acute blood loss anemia, see admission history and physical for the rest of the past medical history. Surgical Procedures: 09/22/18 10:40LEFT TOTAL KNEE ARTHROPLASTY [id number] Surgeon: Joe Montes MD (Service: ORT) HOSPITAL COURSE: The patient received routine postop care including pain management, DVT prophylaxis, and physical therapy. The patient was able to get out of bed and ambulate safely with physical therapy. The post-operative labs and vitals were stable and no blood transfusion was necessary. The patient denied any fever, chills, chest pain, or shortness of breath at discharge and had a normal neurovascular and motor exam. The surgical dressing was clean, dry and intact. Case management was involved to ensure that all medical equipment and other discharge needs were met. The patient was cleared by the hospitalist and physical therapy for discharge. DISPOSITION: Home with home exercise program. CONDITION: Stable. DIET: Resume prior home diet. MEDICATIONS: See discharge medication reconciliation. DISCHARGE INSTRUCTIONS: 1. Instruction sheet given from Dr. Montes's office. 2. Weight-bear as tolerated and increase activity as able, unless otherwise instructed. Outpatient physical therapy will be prescribed, if needed, at the first office visit. 3. Use an ambulatory aid until stable walking. 4. No driving until cleared by Dr. Montes. 5. Leave the surgical dressing on until the first postoperative visit, unless otherwise instructed. 6. Call Dr. Montes' office [phone] for a follow-up appointment next week. Extracted from: Title: Jyoti Operative Report Author: Eric Bass MD Date: 09/22/18 Total Knee Op Note PATIENT NAME: Xiomy Gauthier DATE OF OPERATION/PROCEDURE: 09/22/18 PREOPERATIVE DIAGNOSIS: Left knee osteoarthritis. POSTOPERATIVE DIAGNOSIS: Left knee osteoarthritis PROCEDURE PERFORMED: Left total knee arthroplasty. SURGEON: Joe Montes M.D. ASSISTANTS: Justyn Franklin PA-C (Roving Frame Tender) Eric Potter (Resident) ANESTHESIA: Spinal and monitored anesthesia care. ESTIMATED BLOOD LOSS: 20 mL. URINE OUTPUT: Not monitored. IMPLANTS: 1. TJO Klassic size 5 femur 2. size 5 tibial baseplate, 25mm tibial stem extension 3. tibial UPS insert thickness 10 mm. 4. patella, size 4, 7mm x 37mm DRAINS: None. FINDINGS: Severe bone on bone arthritis with osteophytes on the femur and tibial with synovitis. SPECIMENS: None. INDICATIONS FOR THE PROCEDURE: The patient has a long history of knee pain that interferes with activities of daily living and has failed conservative treatment for osteoarthritis of the knee. DESCRIPTION OF OPERATION: After adequate anesthesia was induced without difficulty, the left lower extremity was prepped and draped in the usual sterile fashion. A standard "timeout" was preformed and the patient, surgical site, and consent were reviewed and after all were in agreement the procedure began. The limb was exsanguinated with an ASHER [...] saline and dried. Methyl methacrylate bone cement was then injected into cancellous bone and [...] A running 3-0 Monocryl subcutaneous suture and a Biomet Zip-line dressing were then used to close the skin edges. A sterile compressive dressing was applied, the patient was awakened, and sent to the recovery room in stable condition. There were no complications. The sponge and needle counts were given as correct x 2. library assistant, Justyn Franklin PA-C assisted with positioning the patient, prepping and draping, and assisted with wound closure. Dr Manuel Montes was present and performed all the riggs portions of the procedure. Eric Potter III, MD PGY-4 Orthopaedic Surgery Pager#: [phone] MSO#: [id number] Extracted from: Title: Clinical Document Author: Taylor Burrows Date: 09/22/18 Chief Complaint: Left knee pain, in need of left total knee arthroplasty. History of Present Illness: This patient presents to clinic today for follow-up of both of his knees. He had the right knee replacement Dr. Montes on 11/26/2017 and feels like he is steadily improving. He still has some swelling and heat in the knee and feels like he is not quite where he wants to be with his flexion and extension but again is improving. With regards to the left knee, he states that he is now ready for a knee replacement as the pain has escalated to the point where it is interfering with his quality of life and conservative treatment measures are no longer controlling the pain. PAST MEDICAL HISTORY: Significant for DM, CAD s/p CABG in 2006 and stent placement last year, HLD, BPH, and GERD. CURRENT MEDICATIONS: Please see Care4. ALLERGIES: Ceclor. PAST SURGICAL HISTORY: Right total knee arthroplasty as stated in HPI. CABG x 3 in 2006, stent placement [...] ROS was marked negative by the patient. Physical Examination: Bilateral knee Exam Inspection: Gait: Mildly antalgic Assistive device: None Alignment: Neutral on the right, varus on the left Effusion: Mild Skin: no rashes, lesions, or other skin changes other than well healed incison on the right knee Palpation: Warmth: Mild warmth of the right knee Tenderness to palpation: Joint-line Range of Motion: The right knee is 5-110 degrees, left knee is 0-120 degrees Ligament Stress Testing: Varus/Valgus: Stable Anterior/Posterior: Stable Neurological: Muscle Strength: quadriceps 5/5, hamstrings 5/5 Sensation: intact to light touch over all lower extremity dermatomes Vascular: DP/PT pulses: palpable Edema: none Imaging: X-rays: 3 Views (PA/Lateral/[place]) of the bilateral knee(s) were taken in the office today with the patient weight-bearing revealing a right total knee arthroplasty in satisfactory alignment and no evidence of loosening, wear, fractures, or complications. The left knee has medial joint space narrowing, osteophyte formation, and subchondral sclerosis. Assessment/Plan: This patient is about 5 and half months out from a right total knee arthroplasty continuing to improve. I reassured him that it is normal to have continued swelling, warmth, and soreness at this point and should continue to improve to a year. With regards to the left knee he has [id number] arthritis and is now a candidate for a right total knee arthroplasty. The risks, benefits, and alternatives of a [...] expressed understanding of the plan moving forward. The choice of implant to be used during the procedure was discussed with the patient. The patient's controlled substance history for the past year has been reviewed on the [place] Prescription Monitoring Program website, and he has been receiving opioid medications from Pain Management doctor, Dr. Iván Lechuga. His last prescription was filled on 09/11/2018 for #60 [place] 5/325mg tablets. Extracted from: Title: Consult Note Author: Sal Kramer MD Date: 09/09/18 1.Preop cardiovascular exam(Z01.810) Type of surgery:Left total knee arthroplasty, intermediate risk Surgery specificmedical issues:Coronary artery disease, diabetes mellitus type 2, hypertension, hyperlipidemia Physical exam concerns: None Patient is able to perform >4METs Activity(stairs) with out cardiovascular symptoms Patient was able to tolerate right total knee arthroplasty on 11/26/2017 without any cardiovascular complications Baseline EKG showsjunctional rhythm with right bundle branch block Patient underwent echocardiogram on 08/29/2018 which showed normal ejection fraction of 55% Patient underwent cardiac stress testing on 08/29/2018which showedmildinferior, inferolateralscarand ejection fraction of 39% Outpatient superintendent logging:Dr. Madan Wyatt cleared patient to proceed with surgeryon 09/03/2018 Revised cardiac risk index scoreis1(coronary disease) consistent with 0.9% risk ofmajor perioperativecardiac event Patient is considered a lowperioperativeCardiovascular risk for intermediate risk surgery and may proceed without further preoperativeworkup. Risks and benefits of surgery discussed with patient 2.Left knee pain(M25.562) Scheduled for left total knee arthroplasty with Dr. Montes on09/22/2018 3.CAD (coronary artery disease)(I25.10) Appears to be controlled on aspirin,rosuvastatin. Patient has received clearance from his superintendent logging Dr. Madan Hazel proceed with surgery on 09/03/2018. He is instructed to hold his aspirin 7 days prior to surgery 4.DM (diabetes mellitus), type 2(E11.9) On metforminwhich patient instructed to hold preoperatively on the morning of surgery. Hemoglobin A1c levels are elevated at 7.7%. Called patient to discuss findings and instructed tofurther restrictcarbohydrates and sugars from his diet. Patient expressed understanding, all questions answered 5.HTN (hypertension)(I10) Takesamlodipinewhich he is instructed to take preoperatively on the morning of surgery 6.High cholesterol(E78.00) Continue on rosuvastatin 7.GERD (gastroesophageal reflux disease)(K21.9) Continue on Zantacwhich patient takes in the evening 8.BPH (benign prostatic hyperplasia)(N40.0) Patient currently does not take any medications for BPH. Patient reportsnocturia3 times a nightlikely due to hisenlarged prostate. Discussedincreased risk forperioperative urinary retention with anesthesia and pain medicationsas well as immobility postoperatively. Discussedtaking tamsulosinat bedtime starting 1 week prior to surgeryto reduce risk of perioperative urinary retention. Risks and benefits of tamsulosin also discussed. Patientis agreeable and prescription sent to his pharmacy, all questions answered. Patient was able to tolerate perioperativetamsulosin on his prior surgeryin November 2017and did not have episodes of urinary retentionas well 9.Anemia(D64.9) Patient has slightly low hemoglobin on preop labs. Called patient discussed findings. Patient denies anyacute blood loss or dark stools.Recommended to improve dietary intake ofiron, B12 and folate rich foods. Patient also instructed to follow-up with primary care physician forfurthermonitoring and evaluation postoperatively. Patient expressed understanding, all questions answered. [facility] Hospitalist Consult Please [phone] any questions
--- NOTE | 2019-02-06 07:46 | Operative Report ---
DATE OF PROCEDURE: 02/06/2019 SURGEON: Demarcus Mcmahon MD PREOPERATIVE DIAGNOSIS: Right kidney stone. POSTOPERATIVE DIAGNOSIS: Right kidney stone. PROCEDURE: Staged right-sided shockwave lithotripsy. ANESTHESIA: General. ESTIMATED BLOOD LOSS: Minimal. COMPLICATIONS: None. INDICATIONS FOR PROCEDURE: Mr. Peña is a very pleasant 78-year-old male with a history of intermittently symptomatic calculi and I had long discussion regarding alternatives, risks, and benefits including doing nothing, shock wave lithotripsy ureteropscopy open surgery risks and benefits and he elected to proceed. DESCRIPTION OF PROCEDURE: After informed consent was obtained, the patient was taken to the operative suite, placed supine on the operating table, underwent general anesthesia by the Anesthesia Service. The stone was localized in the X, Y, and Z planes. Lithotripsy was performed per the treatment report. The patient tolerated the procedure well and was transported to the recovery room in excellent condition. Supervision of fluoroscopy: I was present for the entire procedure and I supervised fluoroscopy. There was no radiologist present. Dosage per treatment report. Demarcus Mcmahon MD ES/MODL /[id number]
[2019-02-06 09:15] VITALS: BP 126/61
== END | disposition home or self-care (01) ==
LOC: OR 05:03
PROVIDERS: ATTEND Urology
DX: N20.0 Calculus of kidney (principal); N40.1 Benign prostatic hyperplasia with lower urinary tract symptoms; N13.8 Other obstructive and reflux uropathy; R39.14 Feeling of incomplete bladder emptying; R35.1 Nocturia; N28.1 Cyst of kidney, acquired; N43.40 Spermatocele of epididymis, unspecified; I10 Essential (primary) hypertension; E11.9 Type 2 diabetes mellitus without complications; N52.9 Male erectile dysfunction, unspecified; I45.10 Unspecified right bundle-branch block; Z88.1 Allergy status to other antibiotic agents; Z01.810 Encounter for preprocedural cardiovascular examination; Z01.812 Encounter for preprocedural laboratory examination; Z01.818 Encounter for other preprocedural examination; Z79.02 Long term (current) use of antithrombotics/antiplatelets; Z79.82 Long term (current) use of aspirin; Z79.84 Long term (current) use of oral hypoglycemic drugs; Z68.31 Body mass index [BMI] 31.0-31.9, adult; Z95.1 Presence of aortocoronary bypass graft; Z95.5 Presence of coronary angioplasty implant and graft
CPT/HCPCS: 36415 ×2; 50590; 71046; 74018; 80048; 82948; 85025; 93005; J1100; J1956; J2001; J2405; J2704

== ENCOUNTER → 2019-03-19 | Outpatient (CLI) | payer MEDICARE ==
[~2019-03-19] MED LIST changes: -ACETAMINOPHEN/CODEINE 300MG - 30MG TAB ONE; -DEXAMETHASONE SOD PHOS INJ 4 MG/ML VIAL ONE; -LEVOFLOXACIN 500MG/D5W 100ML 100 ML IV ONE; -LIDOCAINE HCL 2% LOCAL INJ 5 ML SDV VIAL INJ ONE; -ONDANSETRON HCL INJ 2MG/ML 2ML 2 MG/ML VIAL ONE; -PROPOFOL IV EMULSION 10 MG/ML 20 ML VIAL ONE; -SEVOFLURANE INHAL SOLN 250 ML PEN BTL ONE
--- NOTE | 2019-03-19 14:54 | Diagnostic Imaging Report ---
Abdomen, 1 view. History: Renal calculus. Comparison: 02/05/2019. Findings: 6 mm calcification is projected over the lower pole of the right kidney. Calcified phleboliths are present within the pelvis bilaterally. Air is scattered throughout nondilated small and large bowel. There are no masses. Advanced degenerative changes are present in the lumbar spine. IMPRESSION: No significant change in right renal calculi. Signed by: Raymond Cintron on 03/19/2019 2:50 PM
== END ==
LOC: RAD 13:31
PROVIDERS: ATTEND Urology
DX: N20.0 Calculus of kidney (principal)
CPT/HCPCS: 74018